=== PATIENT | female | born 1980 | race Hispanic/Latino ===

== ENCOUNTER 2017-02-06 18:14 | Inpatient (IN) | payer MEDICAID, OTHER ==
[2017-02-06 18:14] VITALS: BMI 34.3
--- NOTE | 2017-02-06 19:48 | ED PDOC ---
Arrival/HPI - General Chief Complaint: Psychiatric Evaluation Time Seen by Provider: 02/06/17 19:19 Historian: Patient - History of Present Illness Narrative History of Present Illness (Text): 02/06/17 19:43 Pt. to ED PMHX. Schizoaffective disorder,HTN with c/o feeling depressed and paranoid.Feels that some people and men specifically might do her harm.Pt. doesn 't understand why she feels this way.Pt. seems disorganized with her thoughts when trying to explain herself.Also states she feels dizzy at times.She states she forgets to take her medicine at times.She denies any SI/HI.No other somatic complaints offered. Past Medical History - Provider Review Nursing Documentation Reviewed: Yes - Travel History Have you recently traveled outside [place] w/in the past 3 mons?: No - Infectious Disease Hx of Infectious Diseases: None - Tetanus Immunization Tetanus Immunization: Unknown - Cardiac Hx Cardiac Disorders: Yes Hx Hypertension: Yes - Pulmonary Hx Respiratory Disorders: Yes Hx Asthma: Yes Hx Tuberculosis: No - Neurological Hx Neurological Disorder: No HX Cerebrovascular Accident: No Hx Seizures: No - HEENT Hx HEENT Disorder: No - Renal Hx Renal Disorder: No Hx Dialysis: No - Endocrine/Metabolic Hx Endocrine Disorders: No - Hematological/Oncological Hx Blood Disorders: Yes Hx Anemia: Yes Hx Cancer: No - Integumentary Hx Dermatological Disorder: No - Musculoskeletal/Rheumatological Hx Musculoskeletal Disorders: No - Gastrointestinal Hx Gastrointestinal Disorders: Yes Hx Gastritis: Yes - Genitourinary/Gynecological Hx Genitourinary Disorders: No Hx Sexually Transmitted Diseases: No - Psychiatric Hx Psychophysiologic Disorder: Yes Hx Anxiety: Yes Hx Bipolar Disorder: Yes Hx Substance Use: No - Surgical History Other/Comment: Skin Graft - Anesthesia Hx Anesthesia Reactions: No Hx Malignant Hyperthermia: No - Suicidal Assessment Feels Threatened In Home Enviroment: No Family/Social History - Physician Review Nursing Documentation Reviewed: Yes Family/Social History: No Known Family HX Smoking Status: Never Smoked Hx Alcohol Use: No Hx Substance Use: No Hx Substance Use Treatment: No Allergies/Home Meds Allergies/Adverse Reactions: Allergies diphenhydramine HCl [From Benadryl] Allergy (Verified 02/06/17 18:27) ANAPHYLAXIS FISH Allergy (Verified 02/06/17 18:27) RASH fluphenazine [From Prolixin] Allergy (Verified 02/06/17 18:27) ANAPHYLAXIS lactase [From Dairy Aid] Allergy (Verified 02/06/17 18:27) gerd All dairy products haloperidol [From Haldol] Adverse Reaction (Verified 02/06/17 18:27) SHORTNESS OF BREATH haloperidol lactate [From Haldol] Adverse Reaction (Verified 02/06/17 18:27) SHORTNESS OF BREATH seafood Allergy (Uncoded 02/06/17 18:27) RASH Home Medications: Home Meds Medication Instructions Recorded Confirmed Divalproex [Depakote DR] 500 mg PO BID 10/11/16 02/06/17 Metoprolol Tartrate [Lopressor] 0.5 tab PO BID 10/11/16 02/06/17 QUEtiapine [Seroquel] 100 mg PO .AM 10/11/16 02/06/17 QUEtiapine [Seroquel] 125 mg PO HS 10/11/16 02/06/17 Benztropine [Cogentin] 1 mg PO BID 02/06/17 02/06/17 Omeprazole Magnesium [Prilosec Otc] 1 tab PO DAILY 02/06/17 02/06/17 Zolpidem [Ambien] 10 mg PO HS 02/06/17 02/06/17 Review of Systems - Review of Systems Constitutional: Normal Eyes: Normal ENT: Normal Respiratory: Normal Cardiovascular: Normal Gastrointestinal: Normal Genitourinary Female: Normal Musculoskeletal: Normal Skin: Normal Neurological: Normal Endocrine: Normal Hemo/Lymphatic: Normal Psychiatric: Depression, Other (paranoid) Physical Exam Vital Signs Temp Pulse Resp BP Pulse Ox 02/07/17 00:00 98.5 F 88 16 132/75 98 02/06/17 22:00 98 F 85 16 142/75 98 02/06/17 20:14 85 16 144/75 98 02/06/17 18:30 98.3 F 88 16 153/86 H 97 Temperature: Afebrile Blood Pressure: Normal Pulse: Regular Respiratory Rate: Normal Appearance: Positive for: Well-Appearing, Non-Toxic, Comfortable Pain Distress: None Mental Status: Positive for: Alert and Oriented X 3 - Systems Exam Head: Present: Atraumatic, Normocephalic Pupils: Present: PERRL Extroacular Muscles: Present: EOMI Conjunctiva: Present: Normal Ears: Present: NORMAL TM Mouth: Present: Moist Mucous Membranes Pharnyx: Present: Normal Neck: Present: Normal Range of Motion Respiratory/Chest: Present: Clear to Auscultation, Good Air Exchange. No: Respiratory Distress, Accessory Muscle Use Cardiovascular: Present: Regular Rate and Rhythm, Normal S1, S2. No: Murmurs Abdomen: Present: Normal Bowel Sounds. No: Tenderness, Distention, Peritoneal Signs Back: Present: Normal Inspection Upper Extremity: Present: Normal Inspection. No: Cyanosis, Edema Lower Extremity: Present: Normal Inspection. No: Edema Neurological: Present: GCS=15, CN II-XII Intact, Speech Normal, Motor Func Grossly Intact, Normal Sensory Function Skin: Present: Warm, Dry, Normal Color. No: Rashes Psychiatric: Present: Alert, Oriented x 3, Depressed Mood Medical Decision Making ED Course and Treatment: CXR shows no active disease. 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 Pt to be admitted to Behavioral Health for schizoaffective disorder and depression. Pt agreeable with plan. - Lab Interpretations Lab Results: 02/06/17 21:15 02/06/17 21:15 Lab Results 02/06/17 21:15: Alcohol, Quantitative < 10 02/06/17 21:15: Salicylates < 1 L, Acetaminophen < 10.0 L 02/06/17 21:15: Sodium 140, Potassium 4.0, Chloride 104, Carbon Dioxide 25, Anion Gap 15, BUN 11, Creatinine 0.7, Est GFR ( Amer) > 60, Est GFR (Non- Af Amer) > 60, Random Glucose 102, Calcium 8.9, Total Bilirubin 0.3, AST 31, ALT 31, Alkaline Phosphatase 71, Total Protein 6.9, Albumin 3.8, Globulin 3.2, Albumin/Globulin Ratio 1.2 02/06/17 21:15: WBC 8.4, RBC 4.17, Hgb 11.6 L, Hct 34.8 L, MCV 83.5, MCH 27.8, MCHC 33.3, RDW 13.2, Plt Count 215, MPV 8.1, Gran % 63.5, Lymph % (Auto) 26.6, [place] % (Auto) 7.5 H, Eos % (Auto) 1.9, Baso % (Auto) 0.5, Gran # 5.36, Lymph # 2.2, [place] # 0.6, Eos # 0.2, Baso # 0.04 - RAD Interpretation Radiology Orders: 02/06/17 19:42 CHEST PORTABLE [RAD] Stat - EKG Interpretation EKG Interpretation (Text): EKG shows NSR at [address] changes. Interpreted by me. Interpreted by ED Physician: Yes Type: 12 lead EKG - Medication Orders Current Medication Orders: Clonazepam (Klonopin) 0.5 mg PO [facility] PRN Reason: Protocol Quetiapine Fumarate (Seroquel) 100 mg PO [facility] PRN Reason: Protocol Discontinued Medications Clonazepam (Klonopin) 0.5 mg PO ONCE ONE PRN Reason: Protocol Stop: 02/07/17 22:28 Divalproex Sodium (Depakote Dr(*Bid*)) 500 mg PO ONCE ONE PRN Reason: Protocol Stop: 02/06/17 22:27 Famotidine (Pepcid) 20 mg PO ONCE STA Stop: 02/06/17 20:31 Last Admin: 02/06/17 20:35 Dose: Not Given Non-Admin Reason: Patient Refused Quetiapine Fumarate (Seroquel) 100 mg PO ONCE ONE PRN Reason: Protocol Stop: 02/07/17 22:27 Zolpidem Tartrate (Ambien) 5 mg PO ONCE ONE PRN Reason: Protocol Stop: 02/06/17 22:43 Disposition/Present on Arrival - Present on Arrival Any Indicators Present on Arrival: No History of DVT/PE: No History of Uncontrolled Diabetes: No Urinary Catheter: No History of Decub. Ulcer: No History Surgical Site Infection Following: None - Disposition Have Diagnosis and Disposition been Completed?: Yes Diagnosis: Schizoaffective disorder Disposition: HOSPITALIZED Disposition Time: 22:13 Patient Plan: Admission Patient Problems: Current Active Problems Problem Status Onset Schizoaffective disorder Acute Condition: GOOD
[2017-02-06 21:22] LABS: ADD MANUAL DIFF? NO
[2017-02-06 21:32] LABS: BASO # 0.04 K/mm3 (0.0-2.0); BASO % 0.5 % (0.0-3.0); EOS # 0.2 (0.0-0.7); EOS % 1.9 % (1.5-5.0); GRAN # 5.36 (1.4-6.5); GRAN % 63.5 % (50.0-68.0); HEMATOCRIT 34.8 % (36.0-48.0); LYMPH # 2.2 (1.2-3.4); LYMPH % 26.6 % (22.0-35.0); MEAN CELL VOLUME 83.5 fL (80.0-105.0); MEAN CORPUSCULAR HEMOGLOBIN 27.8 pg (25.0-35.0); MEAN CORPUSCULAR HGB CONC 33.3 g/dl (31.0-37.0); MEAN PLATELET VOLUME 8.1 fl (7.0-11.0); MONO # 0.6 (0.1-0.6); MONO % 7.5 % (1.0-6.0); PLATELET COUNT 215 10^3/uL (120.0-450.0); RED CELL DISTRIBUTION WIDTH 13.2 % (11.5-14.5); WHITE BLOOD COUNT 8.4 10^3/ul (4.5-11.0)
[2017-02-06 21:36] LABS: ALB/GLOB RATIO 1.2 (1.1-1.8); ALKALINE PHOSPHATASE 71 U/L (38-133); ALT/SGPT 31 U/L (7-56); AST/SGOT 31 U/L (15-39); BILIRUBIN,TOTAL 0.3 mg/dL (0.2-1.3); BLOOD UREA NITROGEN 11 mg/dL (7-21); CALCIUM 8.9 mg/dL (8.4-10.5); CARBON DIOXIDE 25 mmol/L (21-33); CHLORIDE 104 mmol/L (98-107); GFR AFRICAN-AMERICAN > 60; GLUCOSE,RANDOM 102 mg/dL (70-110); SODIUM 140 mmol/L (132-148); TOTAL PROTEIN 6.9 g/dL (5.8-8.3)
[2017-02-06] MEDS ORDERED: Divalproex 500 mg DR(BID formulation) PO ONE (22:26)
[2017-02-07 00:01] VITALS: O2SAT 98
[2017-02-07 00:20] LABS: URINE BILIRUBIN NEGATIVE (NEGATIVE); URINE BLOOD NEGATIVE (NEGATIVE); URINE GLUCOSE (UA) NEGATIVE (NEGATIVE); URINE KETONE NEGATIVE (NEGATIVE); URINE LEUKOCYTE ESTERASE NEGATIVE Leu/uL (NEGATIVE); URINE PROTEIN NEGATIVE mg/dL (<30 mg/dL); URINE UROBILINOGEN 0.2 E.U./dL (<1 E.U./dL)
[2017-02-07 00:29] LABS: URINE APPEARANCE CLEAR (CLEAR); URINE COLOR YELLOW (YELLOW)
[2017-02-07 01:57] VITALS: RESP 20
[2017-02-07] MEDS ORDERED: Alum-Mag Hydrox-Simethicone Susp (30 mL) PO PRN (02:35)
[2017-02-07] MEDS ORDERED: Magnesium Hydroxide Susp 30 ml UD PO PRN (02:35)
--- NOTE | 2017-02-07 09:00 | RAD ---
HISTORY: medical clearance COMPARISON: 11/25/2016 FINDINGS: LUNGS: No active pulmonary disease. PLEURA: No significant pleural effusion identified, no pneumothorax apparent. CARDIOVASCULAR: Normal. OSSEOUS STRUCTURES: No significant abnormalities. VISUALIZED UPPER ABDOMEN: Normal. OTHER FINDINGS: None. IMPRESSION: No active disease. No significant interval change. Please note that chest radiographs have low sensitivity for small pulmonary nodules. If indicated, chest CT should be obtained.
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
[2017-02-07] MEDS: Divalproex 500 mg DR(BID formulation) PO SCH ×2 (09:18→21:14)
--- NOTE | 2017-02-07 10:01 | CARD ---
APPROVED REPORT EKG Measurement Heart [id number] <Conclusion> Normal sinus rhythm NSSTW changes No change
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
[2017-02-08] MEDS: Pantoprazole 40 mg EC Tab PO SCH (09:02)
[2017-02-08] MEDS: Divalproex 500 mg DR(BID formulation) PO SCH ×2 (09:02→21:25)
[2017-02-09] MEDS: Pantoprazole 40 mg EC Tab PO SCH (09:18)
[2017-02-09] MEDS: Divalproex 500 mg DR(BID formulation) PO SCH (09:18)
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
[2017-02-09] MEDS ORDERED: Divalproex 500 mg DR(BID formulation) PO SCH (16:00)
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
[2017-02-09] MEDS ORDERED: Divalproex 500 mg ER (ONCE DAILY formulation) PO SCH (22:00)
[2017-02-10] MEDS: Pantoprazole 40 mg EC Tab PO SCH (06:47)
[2017-02-10] MEDS ORDERED: Divalproex 500 mg DR(BID formulation) PO SCH (08:00)
[2017-02-10] MEDS ORDERED: Divalproex 500 mg ER (ONCE DAILY formulation) PO SCH (08:00)
[2017-02-10] MEDS ORDERED: QUEtiapine 50 mg XR Tab PO SCH (08:00)
[2017-02-10] MEDS ORDERED: Naproxen 275 mg Tab PO SCH (08:00)
[2017-02-10] MEDS: QUEtiapine 50 mg XR Tab PO SCH (09:23)
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
[2017-02-10] MEDS: Divalproex 500 mg ER (ONCE DAILY formulation) PO SCH (21:33)
[2017-02-11] MEDS: Divalproex 250 mg ER (ONCE DAILY formulation) PO SCH (08:15)
[2017-02-11] MEDS: QUEtiapine 50 mg XR Tab PO SCH (08:16)
[2017-02-11] MEDS: Pantoprazole 40 mg EC Tab PO SCH (08:16)
--- NOTE | 2017-02-11 13:52 | PN ---
DATE: 02/11/2017 The patient is 36 years old, seen and examined sitting in the day room. Complained of a headache. S he states she has strong migraine headache. She also complained of having a strange feeling that is running through her body. As per nurse, eating and tolerating. PHYSICAL EXAMINATION: VITAL SIGNS: Blood pressure is 98.1, pulse 72, respirations 20, blood pressure 99/54. LUNGS: Bilateral fair airflow, no rhonchi or crackle. HEART: S1, S2 audible. ABDOMEN: Soft, nontender, no rebound, no guarding. NEUROLOGIC: She is awake and alert, communicative. ASSESSMENT AND PLAN: 1. Migraine headache. 2. Anxiety disorder. 3. Paranoid schizophrenia. PLAN: We will start her on Percocet as needed. All other medication as recommended by psychiatrist. She is also on metoprolol, but her blood pressure seems to be running on the low side. We will dis continue for now and restart if needed. Tavon Vo MD cc: [phone] TT: 02/11/2017 13:51:52 Confirmation # [id number] Dictation # [id number]
[2017-02-11] MEDS ORDERED: QUEtiapine 50 mg XR Tab PO SCH (16:08)
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
[2017-02-11] MEDS ORDERED: Benzocaine/Menthol (Cepacol) Lozenge MT PRN (19:03)
[2017-02-11] MEDS: Apap-Butalbital-Caffeine 325-50-40mg Tab PO PRN (21:23)
[2017-02-11] MEDS: Divalproex 500 mg ER (ONCE DAILY formulation) PO SCH (21:26)
[2017-02-12] MEDS ORDERED: Naproxen 550 mg Tab PO PRN (14:30)
[2017-02-12] MEDS ORDERED: Naproxen 550 mg Tab PO ONE (14:34)
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
[2017-02-12] MEDS: Apap-Butalbital-Caffeine 325-50-40mg Tab PO PRN (20:04)
[2017-02-12] MEDS: Divalproex 500 mg ER (ONCE DAILY formulation) PO SCH (22:12)
[2017-02-12 22:31] VITALS: PULSE 78
[2017-02-13] MEDS: Pantoprazole 40 mg EC Tab PO SCH (06:32)
[2017-02-13 07:19] VITALS: BP 117/64; TEMP 97.9
[2017-02-13] MEDS: Divalproex 250 mg ER (ONCE DAILY formulation) PO SCH ×2 (09:40→09:41)
--- NOTE | 2017-02-13 18:10 | PCM.PYCHDC ---
Mental Status Examination - Mental Status Examination Orientation: Person, Place, Situation, Time Memory: Intact Mood: Neutral Affect: Constricted (thanks angry) Speech: Appropriate (but overproductive) Attention: WNL Concentration: WNL Association: WNL Fund of Knowledge: Poor (chronic) Formal Thought Process: Paranoia (patient is mildly paranoid, chronic, but with improvement) Description of patient's judgement and insight: Pt has improved insight into mental and medical illness, pt was compliant with medications and unit rules and regulations, pt was going to groups, was calm, cooperative, socially appropriate, no behavioral incidents, no agitation, no aggression. Psychotic Thoughts and Behaviors: Pt denied v/a/t hallucinations, denied paranoid ideations, pt does not appear to be psychotic, and thought process is goal directed. Suicidal Ideation: No Current Homicidal Ideation?: No Discharge Summary - Discharge Note Reason for Hospitalization: paranoia, inability to function Laboratory Data: 02/06/17 21:15 02/06/17 21:15 Lab Results 02/07/17 09:40: Urine HCG, Qual Negative 02/07/17 00:00: Urine Opiates Screen Negative, Urine Methadone Screen Negative, Ur Barbiturates Screen Negative, Ur Phencyclidine Scrn Negative, Ur Amphetamines Screen Negative, U Benzodiazepines Scrn Negative, U Oth Cocaine Metabols Negative, U Cannabinoids Screen Negative 02/07/17 00:00: Urine Color Yellow, Urine Appearance Clear, Urine pH 7.0, Ur Specific [place] 1.015, Urine Protein Negative, Urine Glucose (UA) Negative, Urine Ketones Negative, Urine Blood Negative, Urine Nitrate Negative, Urine Bilirubin Negative, Urine Urobilinogen 0.2, Ur Leukocyte Esterase Negative 02/06/17 21:15: Alcohol, Quantitative < 10 02/06/17 21:15: Salicylates < 1 L, Acetaminophen < 10.0 L 02/06/17 21:15: Sodium 140, Potassium 4.0, Chloride 104, Carbon Dioxide 25, Anion Gap 15, BUN 11, Creatinine 0.7, Est GFR ( Amer) > 60, Est GFR (Non- Af Amer) > 60, Random Glucose 102, Calcium 8.9, Total Bilirubin 0.3, AST 31, ALT 31, Alkaline Phosphatase 71, Total Protein 6.9, Albumin 3.8, Globulin 3.2, Albumin/Globulin Ratio 1.2 02/06/17 21:15: WBC 8.4, RBC 4.17, Hgb 11.6 L, Hct 34.8 L, MCV 83.5, MCH 27.8, MCHC 33.3, RDW 13.2, Plt Count 215, MPV 8.1, Gran % 63.5, Lymph % (Auto) 26.6, [place]ha % (Auto) 7.5 H, Eos % (Auto) 1.9, Baso % (Auto) 0.5, Gran # 5.36, Lymph # 2.2, Desha # 0.6, Eos # 0.2, Baso # 0.04 Vital Signs Temp Pulse Resp BP Pulse Ox 02/13/17 07:18 97.9 F 78 20 117/64 02/12/17 16:00 78 113/52 L 02/11/17 17:55 82 109/67 02/11/17 16:51 82 109/67 02/11/17 07:17 98.1 F 72 20 99/54 L 02/10/17 16:44 89 131/97 H 02/10/17 16:00 89 131/97 H 02/10/17 07:38 97.7 F 63 20 110/70 02/09/17 16:21 96 H 113/76 02/09/17 15:55 96 H 113/76 02/08/17 16:00 86 119/77 02/07/17 16:45 65 116/70 02/07/17 16:27 65 116/70 02/07/17 07:41 98.0 F 73 20 98/44 L 02/07/17 01:57 20 02/07/17 01:54 98.2 F 72 20 148/91 H 02/07/17 00:00 98.5 F 88 16 132/75 98 02/06/17 22:00 98 F 85 16 142/75 98 02/06/17 20:14 85 16 144/75 98 02/06/17 18:30 98.3 F 88 16 153/86 H 97 Consultations:: List each consultation separately and include: 1. Reason for request. 2. Findings. 3. Follow-up Consultations: medical consult appreciated see no somewhat detailed information Summary of Hospital Course include:: 1. Description of specific treatment plan utilized for patients during their course of treatmen. 2. Summarize the time- course for resolution of acute symptoms and/or regressed behaviors. 3. Describe issues identified and worked on during hospitalization. 4. Describe medication utilized. 5. Describe medical problems identified and treated. 6. Reassessment of suicide risk Summary of Hospital Course: patient was admitted for evaluation and stabilization of psychotic symptoms, patient was feeling that people are after her, patient was afraid to be raped. at the day of admission patient was seen in the treatment team, patient presented to be loud, agitated, was cursing at people, was making threats, patient was not able to be redirected, patient presented to be angry, paranoid, does not make much sense. Over the course of this hospitalization this rewriter had a hard time to adjust medications because patient is feeling very paranoid about increasing the dose of medication, over all patient was in agreement to increase doses minimally. Patient was stabilized on the following meds: Seroquel to XR 150mg am and 125mg hs for psychosis klonopin 0.5tid for anxiety depakote to 750mg am and 500gm hs for mood stabilization overall patient improved, patient was less argumentative, was not cursing at people, was socially appropriate, was Attending groups. 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 pt still presented to be mildly paranoid "I know that everybody hates me here, when I will leave probably you will have libertarian" but at the same time pt asked "would you accept me in the future?, please do not defer me from the ED in case I will come here", when this rewriter let pt know that she is welcomed back in the unit pt seems to be much better, smiled and appreciated. Patient was educated about her current medications patient takes long time to process that information, patient said "don't be upset with me because I'm kind of slow, and I cannot understand what my medications are". This rewriter educated about all of her medications, risk benefits alternatives were discussed with the patient, finally patient was able to process that information. At the time of the discharge pt denied been depressed, denied thoughts of harming self or others, denied psychotic symptoms, and pt does not appeared to be psychotic, denied been anxious, was considered to pose no threat to self or others, will be following up at [facility], information about follow up appointment, time and address provided to the pt, it is patient responsibility to follow up with outpatient clinic, PMD as well as specialists (see SW note for more detailed information). In case pt will need to obtain results of studies pending at discharge pt was provided with contact information of Psychiatric Inpatient unit [phone] as well as Medical Record Department [phone]. pt was provided with prescriptions for all of medications (please see medication reconciliation form) patient has Depakote 500 mg twice a day at home This rewriter will provide prescription for Depakote 250 mg at the morning time 2 week supply and 1 refill for mood stabilization Patient was on Seroquel 100 mg at the morning time as well as 125 mg at the nighttime patient has enough medication 125 mg at the nighttime This rewriter will provide Seroquel extended release 150 mg daily 2 week supply one refill for paranoid ideation and mood stabilization Patient has Klonopin 0.5 mg twice a day at home This rewriter will provide Klonopin 0.5 mg at 2 PM two-week supply and 1 refill in addition to Klonopin what she had at home Patient also was provided with Ambien 10 mg at the nighttime 2 week supply and 1 refill Patient still has Cogentin 1 mg twice a day at home patient requested to have vitamin C 500 mg daily one week supply was provided Patient also requested to be on several Qual lozenges 1 tab every 6 hours only 3 days supply and no refills Patient also requested to have here is said one pill twice a day as needed for headaches only 1 week's supply and no refills N5 150 twice a day as needed for severe pain week supply and no refill Pt was educated about safety plan in case of worsening of symptoms or in case of suicidal or homicidal ideation call 911 or go to the nearest ER, also was educated to take meds as prescribed and stay away from drugs, pt verbalized understanding. - Diagnosis (1) Schizoaffective disorder, bipolar type Status: Acute - Final Diagnosis (DSM 5) Condition upon Discharge: GOOD Disposition: HOME/ ROUTINE Follow-up Treatment Plan: At the time of the discharge pt denied been depressed, denied thoughts of harming self or others, denied psychotic symptoms, and pt does not appeared to be psychotic, denied been anxious, was considered to pose no threat to self or others, will be following up at [facility], information about follow up appointment, time and address provided to the pt, it is patient responsibility to follow up with outpatient clinic, PMD as well as specialists (see SW note for more detailed information). In case pt will need to obtain results of studies pending at discharge pt was provided with contact information of Psychiatric Inpatient unit [phone] as well as Medical Record Department [phone]. pt was provided with prescriptions for all of medications (please see medication reconciliation form) patient has Depakote 500 mg twice a day at home This rewriter will provide prescription for Depakote 250 mg at the morning time 2 week supply and 1 refill for mood stabilization Patient was on Seroquel 100 mg at the morning time as well as 125 mg at the nighttime patient has enough medication 125 mg at the nighttime This rewriter will provide Seroquel extended release 150 mg daily 2 week supply one refill for paranoid ideation and mood stabilization Patient has Klonopin 0.5 mg twice a day at home This rewriter will provide Klonopin 0.5 mg at 2 PM two-week supply and 1 refill in addition to Klonopin what she had at home Patient also was provided with Ambien 10 mg at the nighttime 2 week supply and 1 refill Patient still has Cogentin 1 mg twice a day at home patient requested to have vitamin C 500 mg daily one week supply was provided Patient also requested to be on several Qual lozenges 1 tab every 6 hours only 3 days supply and no refills Patient also requested to have here is said one pill twice a day as needed for headaches only 1 week's supply and no refills N5 150 twice a day as needed for severe pain week supply and no refill Pt was educated about safety plan in case of worsening of symptoms or in case of suicidal or homicidal ideation call 911 or go to the nearest ER, also was educated to take meds as prescribed and stay away from drugs, pt verbalized understanding. Prescriptions/Medication Reconciliation: RX: Benzocaine/Menthol [Cepacol Sore Throat] 1 cara MT Q4 PRN #14 cara PRN Reason: Sore Throat RX: clonazePAM [Klonopin] 0.5 mg PO 1600 #14 tab RX: Divalproex [Depakote ER(ONCE DAILY)] 250 mg PO DAILY #14 ter RX: Loratadine [Claritin] 10 mg PO DAILY #7 tab RX: Naproxen [Anaprox DS] 550 mg PO BID PRN #14 tab PRN Reason: Pain, Moderate (4-7) RX: QUEtiapine [Seroquel XR] 150 mg PO DAILY #14 ter RX: Zolpidem [Ambien] 10 mg PO HS #14 - Smoking Cessation Smoking Cessation Medication prescribed: No Reason for not providing: pt does not smoke
== END 2017-02-13 17:37 | disposition home or self-care (01) | DRG 430 ==
LOC: ED 18:14 → ERH 22:11 → PSYC 02-07 01:09
PROVIDERS: ADMIT Psychiatry & Neurology Psychiatry; ATTEND Psychiatry & Neurology Psychiatry
DX: F25.0 Schizoaffective disorder, bipolar type (principal); R56.9 Unspecified convulsions; F20.0 Paranoid schizophrenia; I10 Essential (primary) hypertension; G43.909 Migraine, unspecified, not intractable, without status migrainosus; E66.9 Obesity, unspecified; G24.01 Drug induced subacute dyskinesia; G47.00 Insomnia, unspecified; J45.909 Unspecified asthma, uncomplicated; Z79.899 Other long term (current) drug therapy; Z87.11 Personal history of peptic ulcer disease; Z91.14 Patient's other noncompliance with medication regimen; Z68.34 Body mass index [BMI] 34.0-34.9, adult

== ENCOUNTER 2017-04-06 09:37 | Emergency (ER) | payer MEDICAID, OTHER ==
[2017-04-06 09:39] VITALS: BMI 34.3
[2017-04-06] MEDS ORDERED: Sodium Chloride 0.9% 1,000 ML IV STA (10:11)
--- NOTE | 2017-04-06 10:11 | ED PDOC ---
Arrival/HPI - General Chief Complaint: Abdominal Pain Time Seen by Provider: 04/06/17 10:10 Historian: Patient - History of Present Illness Narrative History of Present Illness (Text): 04/06/17 10:11 36 y/o female, pmh including htn, psychiatric history including shizoaffective/ psychosis/bipolar/paranoid, allergic to pepcid/haldol, c/o generalized abdominal pain/nausea/vomiting/diarrhea x 3-4 days. Pt. has no recent traveling , been having generalized abdominal pain, associated with nausea/vomiting, didn' t count how many times of diarrhea, no night sweat, no dizziness, no urinary symptoms, hematuria, no objective fever or chills, no other medical or psychological complaints. Past Medical History - Provider Review Nursing Documentation Reviewed: Yes - Infectious Disease Hx of Infectious Diseases: None - Tetanus Immunization Tetanus Immunization: Unknown - Cardiac Hx Cardiac Disorders: Yes Hx Hypertension: Yes - Pulmonary Hx Respiratory Disorders: Yes Hx Asthma: Yes Hx Tuberculosis: No - Neurological Hx Neurological Disorder: No HX Cerebrovascular Accident: No Hx Seizures: No - HEENT Hx HEENT Disorder: No - Renal Hx Renal Disorder: No Hx Dialysis: No - Endocrine/Metabolic Hx Endocrine Disorders: No - Hematological/Oncological Hx Blood Disorders: Yes Hx Anemia: Yes Hx Cancer: No - Integumentary Hx Dermatological Disorder: No - Musculoskeletal/Rheumatological Hx Musculoskeletal Disorders: No - Gastrointestinal Hx Gastrointestinal Disorders: Yes Hx Gastritis: Yes - Genitourinary/Gynecological Hx Genitourinary Disorders: No Hx Sexually Transmitted Diseases: No - Psychiatric Hx Psychophysiologic Disorder: Yes Hx Anxiety: Yes Hx Bipolar Disorder: Yes Hx Substance Use: No - Surgical History Other/Comment: Skin Graft - Anesthesia Hx Anesthesia: Yes Hx Anesthesia Reactions: No Hx Malignant Hyperthermia: No - Suicidal Assessment Feels Threatened In Home Enviroment: No Family/Social History - Physician Review Nursing Documentation Reviewed: Yes Family/Social History: Unknown Family HX Smoking Status: Never Smoked Hx Alcohol Use: No Hx Substance Use: No Hx Substance Use Treatment: No Allergies/Home Meds Allergies/Adverse Reactions: Allergies diphenhydramine HCl [From Benadryl] Allergy (Verified 04/06/17 09:58) ANAPHYLAXIS FISH Allergy (Verified 04/06/17 09:58) RASH fluphenazine [From Prolixin] Allergy (Verified 04/06/17 09:58) ANAPHYLAXIS lactase [From Dairy Aid] Allergy (Verified 04/06/17 09:58) gerd All dairy products haloperidol [From Haldol] Adverse Reaction (Verified 04/06/17 09:58) SHORTNESS OF BREATH haloperidol lactate [From Haldol] Adverse Reaction (Verified 04/06/17 09:58) SHORTNESS OF BREATH seafood Allergy (Uncoded 04/06/17 09:58) RASH Home Medications: Home Meds Medication Instructions Recorded Confirmed Divalproex [Depakote DR] 500 mg PO BID 10/11/16 04/06/17 Benztropine [Benztropine Mesylate] 1 mg PO BID 04/06/17 04/06/17 Metoprolol Tartrate [Lopressor] 25 mg PO DAILY 04/06/17 04/06/17 Review of Systems - Review of Systems Constitutional: absent: Fatigue, Fevers Eyes: absent: Vision Changes ENT: absent: Hearing Changes Respiratory: absent: SOB, Cough Cardiovascular: absent: Chest Pain Gastrointestinal: Abdominal Pain, Diarrhea, Nausea, Vomiting Musculoskeletal: absent: Arthralgias, Myalgias Skin: absent: Rash, Pruritis Physical Exam Vital Signs Reviewed: Yes Vital Signs Temp Pulse Resp BP Pulse Ox 04/06/17 09:52 98.6 F 94 H 18 114/81 98 Temperature: Afebrile Blood Pressure: Normal Pulse: Regular Respiratory Rate: Normal Appearance: Positive for: Well-Appearing, Non-Toxic, Comfortable Pain Distress: Mild Mental Status: Positive for: Alert and Oriented X 3 - Systems Exam Head: Present: Atraumatic, Normocephalic Pupils: Present: PERRL Extroacular Muscles: Present: EOMI Conjunctiva: Present: Normal Mouth: Present: Moist Mucous Membranes Neck: Present: Normal Range of Motion Respiratory/Chest: Present: Clear to Auscultation, Good Air Exchange. No: Respiratory Distress, Accessory Muscle Use Cardiovascular: Present: Regular Rate and Rhythm, Normal S1, S2. No: Murmurs Abdomen: Present: Tenderness (+epigastric), Normal Bowel Sounds. No: Distention , Peritoneal Signs, Rebound, Guarding Back: Present: Normal Inspection Upper Extremity: Present: Normal Inspection. No: Cyanosis, Edema Lower Extremity: Present: Normal Inspection. No: Edema Neurological: Present: GCS=15, Speech Normal, Motor Func Grossly Intact, Gait Normal, Memory Normal Skin: Present: Warm, Dry, Normal Color. No: Rashes Psychiatric: Present: Alert, Oriented x 3, Normal Insight, Normal Concentration Medical Decision Making ED Course and Treatment: 04/06/17 09:45 -labs/ua -CT abdomen and pelvis -IVF/pepcid -observe and reassess 04/06/17 14:12 -labs are nonsignificant -UA show no UTI -CT abdomen and pelvis show no significant acute findings, wbc within normal limit, no objective fever temperature in the ER or at home. -Labs and radiology studies discussed with Dr. Hein, agreed to be discharged home. I discussed the labs and radiology results with the patient, her pain resolved, sleeping well and request to be discharged home. -Pt. stated that she will like motrin for prescription as her bed at home is not comfortable. Her abdominal examination is unremarkable with no tenderness or guarding. -Discharge home with pepcid, zofran, motrin, stay hydrated, brat diet, non- dairy diet for 5 days, follow up with your own pmd and GI within 2 days, return to the ER for any new or worsening signs or symptoms. - Lab Interpretations Lab Results: 04/06/17 11:50 04/06/17 11:50 Lab Results 04/06/17 12:45: Urine Color Yellow, Urine Appearance Sl cloudy, Urine pH 7.0, Ur Specific [place] <= 1.005, Urine Protein Negative, Urine Glucose (UA) Negative, Urine Ketones Negative, Urine Blood Trace-lysed H, Urine Nitrate Negative, Urine Bilirubin Negative, Urine Urobilinogen 0.2, Ur Leukocyte Esterase Negative, Urine RBC 1 - 3, Urine WBC 0 - 2, Ur Epithelial Cells 0 - 2 04/06/17 11:50: Sodium 137, Potassium 3.9, Chloride 105, Carbon Dioxide 25, Anion Gap 11, BUN 12, Creatinine 0.5, Est GFR ( Amer) > 60, Est GFR (Non- Af Amer) > 60, Random Glucose 103, Calcium 8.1 L, Total Bilirubin 0.3, AST 29, ALT 25, Alkaline Phosphatase 66, Total Protein 6.4, Albumin 3.5, Globulin 3.0, Albumin/Globulin Ratio 1.2, Lipase 50 04/06/17 11:50: WBC 5.1 D, RBC 4.11, Hgb 11.4 L, Hct 34.3 L, MCV 83.5, MCH 27.7 , MCHC 33.2, RDW 13.1, Plt Count 168, MPV 7.8, Gran % 50.3, Lymph % (Auto) 31.7 , [place] % (Auto) 12.1 H, Eos % (Auto) 5.3 H, Baso % (Auto) 0.6, Gran # 2.54, Lymph # 1.6, [place] # 0.6, Eos # 0.3, Baso # 0.03 I have reviewed the lab results: Yes Interpretation: No clinic. lab abnormalty - RAD Interpretation Radiology Orders: 04/06/17 10:35 ABDOMEN & PELVIS [ABD & PELVIS IV CONTRAST ONLY] [CT] Stat IMPRESSION: There is lack of oral contrast and gas distention of the colon which makes it difficult to evaluate. There is possible mural thickening. There are no mesenteric inflammatory changes. Clinical correlation is suggested No acute intra-abdominal findings Cco & President: Radiologist - Medication Orders Current Medication Orders: Discontinued Medications Famotidine (Pepcid) 20 mg IVP STAT STA Stop: 04/06/17 10:36 Last Admin: 04/06/17 11:53 Dose: 20 mg Sodium Chloride (Sodium Chloride 0.9%) 1,000 mls @ 999 mls/hr IV .Q1H1M STA Stop: 04/06/17 11:11 Last Admin: 04/06/17 11:17 Dose: 999 mls/hr Iohexol (Omnipaque 300 100 Ml) Confirm Administered Dose 100 ml IJ .STK-MED ONE Stop: 04/06/17 12:24 Iohexol (Omnipaque 350 100 Ml) Confirm Administered Dose 350 mg .ROUTE .STK-MED ONE Stop: 04/06/17 12:26 Ketorolac Tromethamine (Toradol) 30 mg IVP STAT STA Stop: 04/06/17 11:53 Last Admin: 04/06/17 12:10 Dose: 30 mg - PA / QUALITY [employer] 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 Disposition/Present on Arrival - Present on Arrival Any Indicators Present on Arrival: No History of DVT/PE: No History of Uncontrolled Diabetes: No Urinary Catheter: No History of Decub. Ulcer: No History Surgical Site Infection Following: None - Disposition Have Diagnosis and Disposition been Completed?: Yes Diagnosis: Vomiting, Diarrhea, Medication refill Disposition: HOME/ ROUTINE Disposition Time: 10:11 Patient Plan: Discharge Condition: IMPROVED Additional Instructions: Discharge home with pepcid, zofran, motrin, stay hydrated, brat diet, non-dairy diet for 5 days, follow up with your own pmd and GI within 2 days, return to the ER for any new or worsening signs or symptoms. Prescriptions: Famotidine [Pepcid] 20 mg PO BID PRN #10 tab PRN Reason: Other Ibuprofen [Motrin Tab] 600 mg PO QID PRN #20 tab PRN Reason: Other Ondansetron ODT [Zofran ODT] 4 mg PO TID PRN #8 odt PRN Reason: Other Referrals: PCP,NO [Primary Care Provider] - Follow up with primary Cristo Esparza MD [Staff Provider] - [place] up with primary [facility] [place] [facility] [place] - Follow up with primary Forms: WORK NOTE
[2017-04-06 12:02] LABS: BASO # 0.03 K/mm3 (0.0-2.0); BASO % 0.6 % (0.0-3.0); EOS # 0.3 (0.0-0.7); EOS % 5.3 % (1.5-5.0); GRAN # 2.54 (1.4-6.5); GRAN % 50.3 % (50.0-68.0); HEMOGLOBIN 11.4 gm/dL (12.0-16.0); LYMPH # 1.6 (1.2-3.4); LYMPH % 31.7 % (22.0-35.0); MEAN CELL VOLUME 83.5 fL (80.0-105.0); MEAN CORPUSCULAR HEMOGLOBIN 27.7 pg (25.0-35.0); MEAN CORPUSCULAR HGB CONC 33.2 g/dl (31.0-37.0); MEAN PLATELET VOLUME 7.8 fl (7.0-11.0); MONO # 0.6 (0.1-0.6); MONO % 12.1 % (1.0-6.0); PLATELET COUNT 168 10^3/uL (120.0-450.0); RBC 4.11 10^6/uL (3.5-6.1); RED CELL DISTRIBUTION WIDTH 13.1 % (11.5-14.5); WHITE BLOOD COUNT 5.1 10^3/ul (4.5-11.0)
[2017-04-06 12:12] LABS: ALB/GLOB RATIO 1.2 (1.1-1.8); ALBUMIN 3.5 g/dL (3.0-4.8); ALT/SGPT 25 U/L (7-56); AST/SGOT 29 U/L (15-39); BLOOD UREA NITROGEN 12 mg/dL (7-21); CALCIUM 8.1 mg/dL (8.4-10.5); GFR AFRICAN-AMERICAN > 60; GFR NON-AFRICAN AMERICAN > 60; LIPASE 50 U/L (23-300)
[2017-04-06] MEDS ORDERED: Iohexol 300 100 ML IJ ONE (12:23)
[2017-04-06] MEDS ORDERED: Iohexol 350 MG/100 ML VIAL ONE (12:25)
[2017-04-06 13:03] LABS: URINE BILIRUBIN NEGATIVE (NEGATIVE); URINE BLOOD TRACE-LYSED (NEGATIVE); URINE GLUCOSE (UA) NEGATIVE (NEGATIVE); URINE LEUKOCYTE ESTERASE NEGATIVE Leu/uL (NEGATIVE); URINE NITRATE NEGATIVE (NEGATIVE); URINE PROTEIN NEGATIVE mg/dL (<30 mg/dL); URINE UROBILINOGEN 0.2 E.U./dL (<1 E.U./dL)
--- NOTE | 2017-04-06 13:11 | CT ---
PROCEDURE: CT Abdomen and Pelvis with contrast HISTORY: abdominal pain/diarrhea/nausea/vomiting COMPARISON: None. TECHNIQUE: Contrast dose: 100 cc of Omni 350 Radiation dose: Total exam DLP = 1144 mGy-cm. This CT exam was performed using one or more of the following dose reduction techniques: Automated exposure control, adjustment of the mA and/or kV according to patient size, and/or use of iterative reconstruction technique. FINDINGS: LOWER THORAX: Unremarkable. LIVER: Unremarkable. No gross lesion or ductal dilatation. GALLBLADDER AND BILE DUCTS: Unremarkable. PANCREAS: Unremarkable. No gross lesion or ductal dilatation. SPLEEN: Unremarkable. ADRENALS: Unremarkable. No mass. KIDNEYS AND URETERS: Unremarkable. No hydronephrosis. No solid mass. VASCULATURE: Unremarkable. No aortic aneurysm. BOWEL: Unremarkable. No obstruction. No gross mural thickening. There is lack of oral contrast and gas distention of the colon which makes it difficult to evaluate. There is possible mural thickening. There are no mesenteric inflammatory changes. Clinical correlation is suggested APPENDIX: Normal appendix. PERITONEUM: Unremarkable. No free fluid. No free air. LYMPH NODES: Unremarkable. No enlarged lymph nodes. BLADDER: Unremarkable. REPRODUCTIVE: Unremarkable. BONES: No acute fracture. OTHER FINDINGS: None. IMPRESSION: There is lack of oral contrast and gas distention of the colon which makes it difficult to evaluate. There is possible mural thickening. There are no mesenteric inflammatory changes. Clinical correlation is suggested No acute intra-abdominal findings
[2017-04-06 13:19] LABS: URINE APPEARANCE SL CLOUDY (CLEAR); URINE COLOR YELLOW (YELLOW)
[2017-04-06 13:21] LABS: URINE EPITHELIAL CELLS 0 - 2 /hpf (0-5); URINE WBC 0 - 2 /hpf (0-6)
[2017-04-06 14:31] VITALS: BP 125/76; PULSE 80; RESP 16; TEMP 97.8; O2SAT 86
== END 2017-04-06 14:35 | disposition home or self-care (01) ==
LOC: ED 09:37
DX: Z76.0 Encounter for issue of repeat prescription (principal); R11.2 Nausea with vomiting, unspecified; R19.7 Diarrhea, unspecified
CPT/HCPCS: 74177; 80053; 81001; 83690; 85025; 96361; 96374; 96375; 99285; J1885; J7040; Q9967

== ENCOUNTER 2017-05-07 14:11 | Emergency (ER) | payer MEDICAID, OTHER ==
[2017-05-07 14:11] VITALS: BMI 34.3
[2017-05-07 14:26] VITALS: RESP 18
--- NOTE | 2017-05-07 15:34 | ED PDOC ---
Arrival/HPI - General Chief Complaint: Psychiatric Evaluation Time Seen by Provider: 05/07/17 14:29 Historian: Patient - History of Present Illness Narrative History of Present Illness (Text): 05/07/17 15:15 A 36 year old female whose past medical history includes schizophrenic disorder , presents to the emergency department with paranoia for the past few days. The patient states that she is on 4 psych medications, but has reduced her intake on her own. She notes that she cannot grasp her feelings. The patient denies fevers, chills, headache, dizziness, nausea, vomiting, diarrhea, chest pain, abdominal pain, or any other complaint. Time/Duration: Other (Several Days) Symptom Onset: Sudden Symptom Course: Unchanged Activities at Onset: Rest, Light Context: Home Past Medical History - Provider Review Nursing Documentation Reviewed: Yes - Infectious Disease Hx of Infectious Diseases: None - Tetanus Immunization Tetanus Immunization: Unknown - Reproductive Menopause: No - Cardiac Hx Cardiac Disorders: Yes Hx Hypertension: Yes - Pulmonary Hx Respiratory Disorders: Yes Hx Asthma: Yes Hx Tuberculosis: No - Neurological Hx Neurological Disorder: No HX Cerebrovascular Accident: No Hx Seizures: No - HEENT Hx HEENT Disorder: No - Renal Hx Renal Disorder: No Hx Dialysis: No - Endocrine/Metabolic Hx Endocrine Disorders: No - Hematological/Oncological Hx Blood Disorders: Yes Hx Anemia: Yes Hx Cancer: No - Integumentary Hx Dermatological Disorder: No - Musculoskeletal/Rheumatological Hx Musculoskeletal Disorders: No - Gastrointestinal Hx Gastrointestinal Disorders: Yes Hx Gastritis: Yes - Genitourinary/Gynecological Hx Genitourinary Disorders: No Hx Sexually Transmitted Diseases: No - Psychiatric Hx Psychophysiologic Disorder: Yes Hx Anxiety: Yes Hx Bipolar Disorder: Yes Hx Substance Use: No - Surgical History Other/Comment: Skin Graft - Anesthesia Hx Anesthesia: Yes Hx Anesthesia Reactions: No Hx Malignant Hyperthermia: No - Suicidal Assessment Feels Threatened In Home Enviroment: No Family/Social History - Physician Review Nursing Documentation Reviewed: Yes Family/Social History: No Known Family HX Smoking Status: Never Smoked Hx Alcohol Use: No Hx Substance Use: No Hx Substance Use Treatment: No Allergies/Home Meds Allergies/Adverse Reactions: Allergies diphenhydramine HCl [From Benadryl] Allergy (Verified 05/07/17 14:26) ANAPHYLAXIS FISH Allergy (Verified 05/07/17 14:26) RASH fluphenazine [From Prolixin] Allergy (Verified 05/07/17 14:26) ANAPHYLAXIS lactase [From Dairy Aid] Allergy (Verified 05/07/17 14:26) gerd All dairy products haloperidol [From Haldol] Adverse Reaction (Verified 05/07/17 14:26) SHORTNESS OF BREATH haloperidol lactate [From Haldol] Adverse Reaction (Verified 05/07/17 14:26) SHORTNESS OF BREATH seafood Allergy (Uncoded 04/06/17 09:58) RASH Home Medications: Home Meds Medication Instructions Recorded Confirmed Benztropine [Benztropine Mesylate] 1 mg PO BID 04/06/17 05/07/17 Metoprolol Tartrate [Lopressor] 12.5 mg PO ACD 04/06/17 05/07/17 Divalproex [Depakote ER] 500 mg PO DAILY 05/07/17 05/07/17 Divalproex [Depakote] 500 mg PO HS 05/07/17 05/07/17 QUEtiapine [Seroquel XR] 100 mg PO DAILY 05/07/17 05/07/17 QUEtiapine [Seroquel] 100 mg PO HS 05/07/17 05/07/17 Review of Systems - Physician Review All systems were reviewed & negative as marked: Yes - Review of Systems Respiratory: absent: SOB Cardiovascular: absent: Chest Pain Gastrointestinal: absent: Diarrhea, Nausea, Vomiting Neurological: absent: Headache, Dizziness Psychiatric: Anxiety Physical Exam Vital Signs Reviewed: Yes Vital Signs Temp Pulse Resp BP Pulse Ox 05/07/17 17:15 18 99 05/07/17 16:24 98.1 F 82 18 108/70 100 05/07/17 14:21 99.2 F 102 H 18 110/72 99 Temperature: Afebrile Blood Pressure: Normal Pulse: Tachycardic Respiratory Rate: Normal Appearance: Positive for: Well-Appearing, Non-Toxic, Comfortable Pain Distress: None Mental Status: Positive for: other (Anxious) - Systems Exam Head: Present: Atraumatic, Normocephalic Pupils: Present: PERRL Extroacular Muscles: Present: EOMI Conjunctiva: Present: Normal Mouth: Present: Moist Mucous Membranes Neck: Present: Normal Range of Motion Respiratory/Chest: Present: Clear to Auscultation, Good Air Exchange. No: Respiratory Distress, Accessory Muscle Use Cardiovascular: Present: Regular Rate and Rhythm, Normal S1, S2. No: Murmurs Abdomen: Present: Normal Bowel Sounds. No: Tenderness, Distention, Peritoneal Signs Back: Present: Normal Inspection Upper Extremity: Present: Normal Inspection. No: Cyanosis, Edema Lower Extremity: Present: Normal Inspection. No: Edema Neurological: Present: GCS=15, CN II-XII Intact, Speech Normal Skin: Present: Warm, Dry, Normal Color. No: Rashes Psychiatric: Present: Anxious Medical Decision Making ED Course and Treatment: 05/07/17 15:23 Impression: A 36 year old female with a complaint on paranoia. Differential Diagnosis included but are not limited to: psych disorder NOS vs. paranoid thoughts Plan: -- EKG -- Chest X-ray -- Urinalysis -- Labs -- Reassess and disposition Progress Notes: 05/07/17 16:05 Patient cleared medically for psych evaluation. 05/07/17 16:37 NSR at [address] elevations, nl intervals. Patient felt a little anxious during her stay. She was given Ativan 1mg PO with improvement. Discussed case with GENESIS Rodriguez who states she discussed with ERIC Dugan who offered patient admission to [facility] but patient wanted to be admitted here. There are no beds. Patient states she wants to leave and come back tomorrow. Patient feels safe going home. No SI or HI. She will continue her meds as discussed with GENESIS Rodriguez. - Lab Interpretations Lab Results: 05/07/17 15:25 05/07/17 15:25 Lab Results 05/07/17 15:25: Alcohol, Quantitative < 10 05/07/17 15:25: Salicylates < 1 L, Acetaminophen < 10.0 L 05/07/17 15:25: Urine Opiates Screen Negative, Urine Methadone Screen Negative, Ur Barbiturates Screen Negative, Ur Phencyclidine Scrn Negative, Ur Amphetamines Screen Negative, U Benzodiazepines Scrn Negative, U Oth Cocaine Metabols Negative, U Cannabinoids Screen Negative 05/07/17 15:25: Sodium 138, Potassium 4.1, Chloride 103, Carbon Dioxide 24, Anion Gap 15, BUN 13, Creatinine 0.5, Est GFR ( Amer) > 60, Est GFR (Non- Af Amer) > 60, Random Glucose 139 H, Calcium 8.8, Total Bilirubin 0.2, AST 36, ALT 34, Alkaline Phosphatase 75, Total Protein 7.0, Albumin 3.9, Globulin 3.0, Albumin/Globulin Ratio 1.3 05/07/17 15:25: Urine Color Yellow, Urine Appearance Clear, Urine pH 7.0, Ur Specific [place] 1.010, Urine Protein Negative, Urine Glucose (UA) Negative, Urine Ketones Negative, Urine Blood Negative, Urine Nitrate Negative, Urine Bilirubin Negative, Urine Urobilinogen 0.2, Ur Leukocyte Esterase Negative 05/07/17 15:25: WBC 8.9 D, RBC 4.46, Hgb 12.3, Hct 36.5, MCV 81.8, MCH 27.6, MCHC 33.7, RDW 13.1, Plt Count 208, MPV 8.0, Gran % 63.1, Lymph % (Auto) 24.5, Butts % (Auto) 6.9 H, Eos % (Auto) 5.2 H, Baso % (Auto) 0.3, Gran # 5.60, Lymph # 2.2, Butts # 0.6, Eos # 0.5, Baso # 0.03 I have reviewed the lab results: Yes - RAD Interpretation Radiology Orders: 05/07/17 15:07 CHEST PORTABLE [RAD] Stat - EKG Interpretation Interpreted by ED Physician: Yes Type: 12 lead EKG - Medication Orders Current Medication Orders: Discontinued Medications Lorazepam (Ativan) 1 mg PO ONCE ONE PRN Reason: Protocol Stop: 05/07/17 16:23 Last Admin: 05/07/17 16:50 Dose: 1 mg - Scribe Statement The provider has reviewed the documentation as recorded by the Mai Rowe Provider Stoneyibe Attestation: All medical record entries made by the Mai were at my direction and personally dictated by me. I have reviewed the chart and agree that the record accurately reflects my personal performance of the history, physical exam, medical decision making, and the department course for this patient. I have also personally directed, reviewed, and agree with the discharge instructions and disposition. Disposition/Present on Arrival - Present on Arrival Any Indicators Present on Arrival: No History of DVT/PE: No History of Uncontrolled Diabetes: No Urinary Catheter: No History of Decub. Ulcer: No History Surgical Site Infection Following: None - Disposition Have Diagnosis and Disposition been Completed?: Yes Diagnosis: Psychiatric care Disposition: AGAINST MEDICAL ADVICE Disposition Time: 16:06 Condition: GOOD Discharge Instructions (ExitCare): Hallucinations (ED) Additional Instructions: Ms Campbell, thank you for letting us take care of you today. Your provider was Dr. Wen. You were treated for Psychiatric care The emergency medical care you received today was directed at your acute symptoms. If you were prescribed any medication, please fill it and take as directed. It may take several days for your symptoms to resolve. Return to the Emergency Department if your symptoms worsen, do not improve, or if you have any other problems. Please contact your doctor or call one of the physicians/clinics you have been referred to that are listed on the Patient Visit Information form that is included in your discharge packet. Bring any paperwork you were given at discharge with you along with any medications you are taking to your follow up visit. Our treatment cannot replace ongoing medical care by a primary care provider (PCP) outside of the emergency department. Thank you for allowing the [facility] team to be part of your care today. If you had an X-Ray or CT scan: A Radiologist will review the ED reading if any change in treatment is needed we will contact you. If you had a blood, urine, or wound culture: It will take several days for the results, if any change in treatment is needed we will contact you. If you had an STI test: It will take 48 hours for the results. Please call after 1 week if you have not heard back. Referrals: PCP,NO [Primary Care Provider] - Follow up with primary Forms: [employer] (Latvian)
[2017-05-07 15:38] LABS: BASO # 0.03 K/mm3 (0.0-2.0); BASO % 0.3 % (0.0-3.0); EOS # 0.5 (0.0-0.7); EOS % 5.2 % (1.5-5.0); GRAN % 63.1 % (50.0-68.0); HEMOGLOBIN 12.3 g/dL (12.0-16.0); LYMPH # 2.2 (1.2-3.4); LYMPH % 24.5 % (22.0-35.0); MEAN CELL VOLUME 81.8 fl (80.0-105.0); MEAN CORPUSCULAR HEMOGLOBIN 27.6 pg (25.0-35.0); MEAN CORPUSCULAR HGB CONC 33.7 g/dl (31.0-37.0); MONO # 0.6 (0.1-0.6); MONO % 6.9 % (1.0-6.0); PLATELET COUNT 208 10^3/uL (120.0-450.0); RBC 4.46 10^6/uL (3.5-6.1); RED CELL DISTRIBUTION WIDTH 13.1 % (11.5-14.5); WHITE BLOOD COUNT 8.9 10^3/ul (4.5-11.0)
[2017-05-07 15:42] LABS: URINE BILIRUBIN NEGATIVE (NEGATIVE); URINE BLOOD NEGATIVE (NEGATIVE); URINE GLUCOSE (UA) NEGATIVE (NEGATIVE); URINE LEUKOCYTE ESTERASE NEGATIVE Leu/uL (NEGATIVE); URINE NITRATE NEGATIVE (NEGATIVE); URINE PROTEIN NEGATIVE mg/dL (<30 mg/dL); URINE UROBILINOGEN 0.2 E.U./dL (<1 E.U./dL)
[2017-05-07 15:43] LABS: URINE APPEARANCE CLEAR (CLEAR); URINE COLOR YELLOW (YELLOW)
[2017-05-07 15:57] LABS: SALICYLATE < 1 mg/dL (2.0-20.0)
[2017-05-07 15:58] LABS: ALB/GLOB RATIO 1.3 (1.1-1.8); ALBUMIN 3.9 g/dL (3.0-4.8); ALT/SGPT 34 U/L (7-56); AST/SGOT 36 U/L (15-39); BLOOD UREA NITROGEN 13 mg/dL (7-21); CALCIUM 8.8 mg/dL (8.4-10.5); GFR AFRICAN-AMERICAN > 60; GFR NON-AFRICAN AMERICAN > 60
[2017-05-07 16:00] LABS: ACETAMINOPHEN < 10.0 ug/ml (10.0-20.0)
[2017-05-07 16:07] LABS: BARBITURATES, UR NEGATIVE (NEGATIVE); BENZODIAZEPINES, UR NEGATIVE (NEGATIVE); OPIATES, UR NEGATIVE (NEGATIVE); PHENCYCLIDINE, UR NEGATIVE (NEGATIVE)
--- NOTE | 2017-05-07 16:08 | RAD ---
HISTORY: psych COMPARISON: No prior. FINDINGS: LUNGS: No active pulmonary disease. PLEURA: No significant pleural effusion identified, no pneumothorax apparent. CARDIOVASCULAR: Normal. OSSEOUS STRUCTURES: No significant abnormalities. VISUALIZED UPPER ABDOMEN: Normal. OTHER FINDINGS: None. IMPRESSION: No active disease.
[2017-05-07 16:25] VITALS: BP 108/70; PULSE 82; TEMP 98.1
[2017-05-07 17:16] VITALS: O2SAT 99
--- NOTE | 2017-05-08 00:10 | CARD ---
APPROVED REPORT EKG Measurement Heart [id number] <Conclusion> Normal sinus rhythm Low voltage QRS Nonspecific T wave abnormality Abnormal ECG
== END 2017-05-07 17:17 | disposition left against medical advice (07) ==
LOC: ED 14:11
DX: Z00.8 Encounter for other general examination (principal)

== ENCOUNTER 2017-05-08 09:17 | Inpatient (IN) | payer MEDICAID, OTHER ==
[2017-05-08 09:17] VITALS: BMI 34.3
--- NOTE | 2017-05-08 09:39 | ED PDOC ---
Arrival/HPI - General Chief Complaint: Psychiatric Evaluation Time Seen by Provider: 05/08/17 09:33 Historian: Patient - History of Present Illness Narrative History of Present Illness (Text): 05/08/17 09:35 36 y/o female, pmh including htn, psychiatric history of bipolar/paranoid/ psychosis/schizoaffective/depression, c/o request to continue the care for her psychiatric condition. Pt. stated that she has self reduced intake of her medications for psychiatric conditions at home, seen in the ER yesterday and was medically clear, offered psychiatric admission to the [facility] but refused because she would like to be admitted to the [facility] which she was discharge home. Pt. is here today because she would like to have the continuous evaluate of the psychiatric care and see if there is any available bed. Pt. has chest pain or shortness of breath, no palpitation, no night sweat , no dizziness, no other medical or psychological complaints. Past Medical History - Provider Review Nursing Documentation Reviewed: Yes - Infectious Disease Hx of Infectious Diseases: None - Tetanus Immunization Tetanus Immunization: Unknown - Cardiac Hx Cardiac Disorders: Yes Hx Hypertension: Yes - Pulmonary Hx Respiratory Disorders: Yes Hx Asthma: Yes Hx Tuberculosis: No - Neurological Hx Neurological Disorder: No HX Cerebrovascular Accident: No Hx Seizures: No - HEENT Hx HEENT Disorder: No - Renal Hx Renal Disorder: No Hx Dialysis: No - Endocrine/Metabolic Hx Endocrine Disorders: No - Hematological/Oncological Hx Blood Disorders: Yes Hx Anemia: Yes Hx Cancer: No - Integumentary Hx Dermatological Disorder: No - Musculoskeletal/Rheumatological Hx Musculoskeletal Disorders: No - Gastrointestinal Hx Gastrointestinal Disorders: Yes Hx Gastritis: Yes - Genitourinary/Gynecological Hx Genitourinary Disorders: No Hx Sexually Transmitted Diseases: No - Psychiatric Hx Psychophysiologic Disorder: Yes Hx Anxiety: Yes Hx Bipolar Disorder: Yes Hx Substance Use: No - Surgical History Other/Comment: Skin Graft - Anesthesia Hx Anesthesia: Yes Hx Anesthesia Reactions: No Hx Malignant Hyperthermia: No - Suicidal Assessment Feels Threatened In Home Enviroment: No Family/Social History - Physician Review Nursing Documentation Reviewed: Yes Family/Social History: Unknown Family HX Smoking Status: Never Smoked Hx Alcohol Use: No Hx Substance Use: No Hx Substance Use Treatment: No Allergies/Home Meds Allergies/Adverse Reactions: Allergies diphenhydramine HCl [From Benadryl] Allergy (Verified 05/08/17 09:25) ANAPHYLAXIS FISH Allergy (Verified 05/08/17 09:25) RASH fluphenazine [From Prolixin] Allergy (Verified 05/08/17 09:25) ANAPHYLAXIS lactase [From Dairy Aid] Allergy (Verified 05/08/17 09:25) gerd All dairy products haloperidol [From Haldol] Adverse Reaction (Verified 05/08/17 09:25) SHORTNESS OF BREATH haloperidol lactate [From Haldol] Adverse Reaction (Verified 05/08/17 09:25) SHORTNESS OF BREATH seafood Allergy (Uncoded 05/08/17 09:25) RASH Home Medications: Home Meds Medication Instructions Recorded Confirmed Benztropine [Benztropine Mesylate] 1 mg PO BID 04/06/17 05/08/17 Metoprolol Tartrate [Lopressor] 12.5 mg PO ACD 04/06/17 05/08/17 Divalproex [Depakote ER] 500 mg PO DAILY 05/07/17 05/08/17 Divalproex [Depakote] 500 mg PO HS 05/07/17 05/08/17 QUEtiapine [Seroquel XR] 100 mg PO DAILY 05/07/17 05/08/17 QUEtiapine [Seroquel] 100 mg PO HS 05/07/17 05/08/17 Review of Systems - Review of Systems Constitutional: absent: Fatigue, Fevers Eyes: absent: Vision Changes ENT: absent: Hearing Changes Respiratory: absent: SOB, Cough Cardiovascular: absent: Chest Pain Gastrointestinal: absent: Abdominal Pain, Nausea, Vomiting Skin: absent: Rash, Pruritis Neurological: absent: Headache, Dizziness Psychiatric: Anxiety. absent: Depression, Suicidal Ideation Physical Exam Vital Signs Reviewed: Yes Vital Signs Temp Pulse Resp BP Pulse Ox 05/08/17 15:12 82 16 94/54 L 97 05/08/17 11:30 95 H 16 110/78 95 05/08/17 09:30 98.5 F 101 H 19 106/76 99 Temperature: Afebrile Blood Pressure: Normal Pulse: Tachycardic Respiratory Rate: Normal Appearance: Positive for: Well-Appearing, Non-Toxic, Comfortable Pain Distress: None Mental Status: Positive for: Alert and Oriented X 3 - Systems Exam Head: Present: Atraumatic, Normocephalic Pupils: Present: PERRL Extroacular Muscles: Present: EOMI Conjunctiva: Present: Normal Mouth: Present: Moist Mucous Membranes Neck: Present: Normal Range of Motion Respiratory/Chest: Present: Clear to Auscultation, Good Air Exchange. No: Respiratory Distress, Accessory Muscle Use Cardiovascular: Present: Regular Rate and Rhythm, Normal S1, S2. No: Murmurs Abdomen: Present: Normal Bowel Sounds. No: Tenderness, Distention, Peritoneal Signs Back: Present: Normal Inspection Upper Extremity: Present: Normal Inspection. No: Cyanosis, Edema Lower Extremity: Present: Normal Inspection. No: Edema Neurological: Present: GCS=15, CN II-XII Intact, Speech Normal Skin: Present: Warm, Dry, Normal Color. No: Rashes Psychiatric: Present: Alert, Oriented x 3, Normal Insight, Normal Concentration , Anxious Medical Decision Making ED Course and Treatment: 05/08/17 09:43 -Labs and radiology study was perform yesterday, was medically clear and stable for psychiatric evaluation. -Pt. is medically clear and stable for the psychiatric evaluation, spoke to the GENESIS Rodriguez and will talk to the patient. 05/08/17 10:22 -GENESIS Rodriguez spoke to Dr. Gloria Casey, agreed to accept the labs/radiology studies from yesterday, suggest to admit to her service for schizoaffective and depression -Pt. agreed to be admitted. - PA / HANDS PARTER / Resident Statement MD/DO has reviewed & agrees with the documentation as recorded. Disposition/Present on Arrival - Present on Arrival Any Indicators Present on Arrival: No History of DVT/PE: No History of Uncontrolled Diabetes: No Urinary Catheter: No History of Decub. Ulcer: No History Surgical Site Infection Following: None - Disposition Have Diagnosis and Disposition been Completed?: Yes Diagnosis: Schizoaffective disorder, Depression Disposition: HOSPITALIZED Disposition Time: 09:44 Patient Plan: Admission Patient Problems: Current Active Problems Problem Status Onset Depression Acute Schizoaffective disorder Acute Condition: STABLE
[2017-05-08 18:23] VITALS: RESP 18; TEMP 98; O2SAT 98
--- NOTE | 2017-05-08 18:50 | PCM.BM ---
<Abad Coronado - Last Filed: 05/08/17 18:51> Treatment Plan Problems - Problems identified on initial assessmt MEDS NONADHERENCE Date Initiated: 05/08/17 Time Initiated: 18:48 Assessment reference: NA (THOUGHT PROCESS ALTERATION) Status: Active THOUGHT PROCESS ALTERATION Date Initiated: 05/08/17 Time Initiated: 18:49 Assessment reference: NA Status: Active (AGITATED BEHAVIOR) AGITATED BEHAVIOR Date Initiated: 05/08/17 Time Initiated: 18:50 Assessment reference: NA Status: Active Treatment assets and liabiliti Patient Assests: resourceful, self-reliant, negotiates basic needs Patient Liabilities: live alone, physical pain, poor support system, relationship conflicts, language/speech - Milieu Protocol Maintain good personal hygiene: daily Encourage regular showers, daily Remind patient to perform daily oral care, daily Assist patient to perform ADL's Maintain personal safety: daily Educate patient to report safety concerns to staff, daily Monitor environment for contraband/sharps Medication safety: Monitor for expected outcome, potential side effects: daily, Assess barriers to learning: daily, Assess readiness for medication education: daily Discharge/Continuing Care - Education Needs Education Needs: Family Medication, Family Diagnosis/Disease Process, Family Coping Skills, Family Anger Management skills, Family Placement options, Family Pain, Family Health Practices/Safety, Family Personal Hygiene/Grooming - Discharge Discharge Criteria: Tolerates medication w/o severe side effects, Free of Suicidal thoughts, Free of Homicidal thoughts, Normal sleep pattern, Ability to care for self Discharge to:: Home <Billy Lorenzo - Last Filed: 05/11/17 11:50> - Diagnosis (1) Schizoaffective disorder Status: Chronic
[2017-05-08] MEDS: Divalproex 500 mg DR(BID formulation) PO SCH (21:26)
[2017-05-08] MEDS ORDERED: QUEtiapine 50 mg XR Tab PO SCH (22:00)
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
[2017-05-09] MEDS: QUEtiapine 50 mg XR Tab PO SCH (09:15)
[2017-05-09] MEDS: Metoprolol Succinate 25 mg XL Tab PO SCH (09:16)
[2017-05-09] MEDS: Divalproex 500 mg ER (ONCE DAILY formulation) PO SCH (09:16)
[2017-05-09] MEDS: Naproxen 550 mg Tab PO SCH (16:29)
[2017-05-09] MEDS: Divalproex 500 mg DR(BID formulation) PO SCH (21:31)
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
[2017-05-10] MEDS: Pantoprazole 40 mg EC Tab PO SCH (07:25)
[2017-05-10] MEDS: QUEtiapine 50 mg XR Tab PO SCH (08:27)
[2017-05-10] MEDS: Naproxen 550 mg Tab PO SCH ×2 (08:27→15:00)
[2017-05-10] MEDS: Divalproex 500 mg ER (ONCE DAILY formulation) PO SCH (08:28)
[2017-05-10] MEDS: Metoprolol Succinate 25 mg XL Tab PO SCH (08:44)
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
[2017-05-10 16:50] VITALS: BP 138/71; PULSE 72
[2017-05-10] MEDS: Divalproex 500 mg DR(BID formulation) PO SCH (21:22)
[2017-05-11] MEDS: Pantoprazole 40 mg EC Tab PO SCH (07:03)
[2017-05-11] MEDS: Metoprolol Succinate 25 mg XL Tab PO SCH (09:27)
[2017-05-11] MEDS: Naproxen 550 mg Tab PO SCH (09:27)
[2017-05-11] MEDS: Divalproex 500 mg ER (ONCE DAILY formulation) PO SCH (09:27)
[2017-05-11] MEDS: QUEtiapine 50 mg XR Tab PO SCH (09:28)
--- NOTE | 2017-05-11 14:30 | PCM.PYCHPN ---
Psychiatric Progress Note - Psychiatric Progress Note Patient seen today, length of contact: 25 min Patient Chief Complaint: "I'm bored, I want to go home" Problems Identified/Issues Discussed: Patient has been seen and examined. She is oriented to person, time, place, location, and circumstance. Patient states her symptoms have resolved, she is bored, and that she wants to go home. Diagnostic Results: schizoaffective disorder Medication Change: No Medical Record Reviewed: Yes Mental Status Examination - Cognitive Function Orientation: Person, Place Attention: WNL Concentration: WNL Association: WNL Fund of Knowledge: WNL Decription of patient's judgement and insights: Patient has good insight into medical condition. She - Mood Mood: Neutral - Affect Affect: Broad - Speech Speech: Appropriate - Formal Thought Process Formal Thought Process: No Impairment - Suicidal Ideation Suicidal Ideation: No - Homicidal Ideation Homicidal Ideation: No Goal/Treatment Plan - Goal/Treatment Plan Progress Toward Problem(s) and Goals/Treatment Plan: D/C today Estimated Date of D/C: 05/11/17
== END 2017-05-11 15:19 | disposition home or self-care (01) | DRG 430 ==
LOC: ED 09:17 → ERH 10:26 → PSYC 15:56
PROVIDERS: ADMIT Psychiatry & Neurology Psychiatry; ATTEND Psychiatry & Neurology Psychiatry
DX: F25.9 Schizoaffective disorder, unspecified (principal); I10 Essential (primary) hypertension; J45.909 Unspecified asthma, uncomplicated; K29.70 Gastritis, unspecified, without bleeding; F31.9 Bipolar disorder, unspecified; Z91.19 Patient's noncompliance with other medical treatment and regimen

== ENCOUNTER 2017-05-14 16:39 | Emergency (ER) | payer MEDICAID, OTHER ==
[2017-05-14 16:40] VITALS: BMI 34.3
--- NOTE | 2017-05-14 17:29 | ED PDOC ---
Arrival/HPI - General Chief Complaint: Psychiatric Evaluation Time Seen by Provider: 05/14/17 17:09 Historian: Patient - History of Present Illness Narrative History of Present Illness (Text): 05/14/17 17:39 36yr old female presents today feeling "desperate". pt states she cant get into any of her programs. pt denies fever/chills. no chest pain or shortness of breath. no vomiting/diarrhea. no abdominal pain. no dizziness or weakness. denies SI or HI. Past Medical History - Provider Review Nursing Documentation Reviewed: Yes - Travel History Have you recently traveled outside [place] w/in the past 3 mons?: No - Infectious Disease Hx of Infectious Diseases: None - Tetanus Immunization Tetanus Immunization: Unknown - Cardiac Hx Cardiac Disorders: Yes Hx Hypertension: Yes - Pulmonary Hx Respiratory Disorders: Yes Hx Asthma: Yes Hx Tuberculosis: No - Neurological Hx Neurological Disorder: No HX Cerebrovascular Accident: No Hx Seizures: No - HEENT Hx HEENT Disorder: No - Renal Hx Renal Disorder: No Hx Dialysis: No - Endocrine/Metabolic Hx Endocrine Disorders: No - Hematological/Oncological Hx Blood Disorders: Yes Hx Anemia: Yes Hx Cancer: No - Integumentary Hx Dermatological Disorder: No - Musculoskeletal/Rheumatological Hx Musculoskeletal Disorders: No - Gastrointestinal Hx Gastrointestinal Disorders: Yes Hx Gastritis: Yes - Genitourinary/Gynecological Hx Genitourinary Disorders: No Hx Sexually Transmitted Diseases: No - Psychiatric Hx Psychophysiologic Disorder: Yes Hx Anxiety: Yes Hx Bipolar Disorder: Yes Hx Substance Use: No - Surgical History Other/Comment: Skin Graft - Anesthesia Hx Anesthesia: Yes Hx Anesthesia Reactions: No Hx Malignant Hyperthermia: No - Suicidal Assessment Feels Threatened In Home Enviroment: No Family/Social History - Physician Review Nursing Documentation Reviewed: Yes Family/Social History: Unknown Family HX Smoking Status: Never Smoked Hx Alcohol Use: No Hx Substance Use: No Hx Substance Use Treatment: No Allergies/Home Meds Allergies/Adverse Reactions: Allergies diphenhydramine HCl [From Benadryl] Allergy (Verified 05/08/17 09:25) ANAPHYLAXIS FISH Allergy (Verified 05/08/17 09:25) RASH fluphenazine [From Prolixin] Allergy (Verified 05/08/17 09:25) ANAPHYLAXIS haloperidol [From Haldol] Adverse Reaction (Verified 05/08/17 09:25) SHORTNESS OF BREATH haloperidol lactate [From Haldol] Adverse Reaction (Verified 05/08/17 09:25) SHORTNESS OF BREATH seafood Allergy (Uncoded 05/08/17 09:25) RASH Home Medications: Home Meds Medication Instructions Recorded Confirmed Benztropine [Benztropine Mesylate] 1 mg PO BID 04/06/17 05/14/17 Metoprolol Tartrate [Lopressor] 12.5 mg PO ACD 04/06/17 05/14/17 Divalproex [Depakote ER] 750 mg PO DAILY 05/07/17 05/14/17 Divalproex [Depakote] 500 mg PO HS 05/07/17 05/14/17 QUEtiapine [Seroquel XR] 125 mg PO DAILY 05/07/17 05/14/17 QUEtiapine [Seroquel] 100 mg PO HS 05/07/17 05/14/17 Review of Systems - Review of Systems Constitutional: absent: Fatigue, Fevers Respiratory: absent: SOB, Cough Cardiovascular: absent: Chest Pain, Palpitations Gastrointestinal: absent: Abdominal Pain, Nausea, Vomiting Genitourinary Female: absent: Dysuria Musculoskeletal: absent: Arthralgias, Back Pain, Neck Pain Skin: absent: Rash, Pruritis Neurological: absent: Headache, Dizziness Psychiatric: Anxiety, Depression. absent: Suicidal Ideation Physical Exam Vital Signs Reviewed: Yes Vital Signs Temp Pulse Resp BP Pulse Ox 05/14/17 21:55 80 16 120/70 99 05/14/17 18:00 80 16 121/71 99 05/14/17 16:55 98.7 F 76 16 115/78 100 Temperature: Afebrile Blood Pressure: Normal Pulse: Regular Respiratory Rate: Normal Appearance: Positive for: Well-Appearing, Non-Toxic, Comfortable Pain Distress: None Mental Status: Positive for: Alert and Oriented X 3 - Systems Exam Head: Present: Atraumatic Mouth: Present: Moist Mucous Membranes Neck: Present: Normal Range of Motion Respiratory/Chest: Present: Clear to Auscultation Cardiovascular: Present: Regular Rate and Rhythm Skin: Present: Warm, Dry, Normal Color. No: Rashes Psychiatric: Present: Alert, Oriented x 3 Medical Decision Making ED Course and Treatment: 05/14/17 17:44 Patient is nontoxic well-appearing in no distress vital signs are stable. CBC WNL CMP WNL Tylenol WNL Salicylate WNL Alcohol level WNL Urine drug screen wnl UA; wnl cxr: wnl ekg normal sinus rhythm at 76 bpm normal axis normal intervals no ST elevations pt is medically cleared for PES evaluation Patient was seen and evaluated by PES screener: arnol pt is without SI or HI. pt cleared psychiatrically for discharge with a list of providers that the patient can follow with. Impression; schizoaffective disorder Follow up with outpatient services Utilize the list of providers that was provided to you. return if any concerning symptoms develop. - Lab Interpretations Lab Results: 05/14/17 17:52 05/14/17 17:52 Lab Results 05/14/17 17:52: Urine Opiates Screen Negative, Urine Methadone Screen Negative, Ur Barbiturates Screen Negative, Ur Phencyclidine Scrn Negative, Ur Amphetamines Screen Negative, U Benzodiazepines Scrn Negative, U Oth Cocaine Metabols Negative, U Cannabinoids Screen Negative 05/14/17 17:52: Alcohol, Quantitative < 10 05/14/17 17:52: Salicylates < 1 L, Acetaminophen < 10.0 L 05/14/17 17:52: Urine Color Yellow, Urine Appearance Sl cloudy, Urine pH 6.5, Ur Specific [place] 1.025, Urine Protein Trace H, Urine Glucose (UA) Negative, Urine Ketones Negative, Urine Blood Negative, Urine Nitrate Negative, Urine Bilirubin Negative, Urine Urobilinogen 0.2, Ur Leukocyte Esterase Negative, Urine RBC 2 - 5, Urine WBC 1 - 3, Ur Epithelial Cells 6 - 8, Urine Bacteria Mod , Urine Other Fiber 05/14/17 17:52: WBC 9.5, RBC 4.47, Hgb 12.3, Hct 36.4, MCV 81.4, MCH 27.5, MCHC 33.8, RDW 13.3, Plt Count 250, MPV 8.1, Gran % 51.8, Lymph % (Auto) 33.4, [place] % (Auto) 8.7 H, Eos % (Auto) 5.4 H, Baso % (Auto) 0.7, Gran # 4.91, Lymph # 3.2 , [place] # 0.8 H, Eos # 0.5, Baso # 0.07 05/14/17 17:52: Sodium 139, Potassium 4.0, Chloride 103, Carbon Dioxide 23, Anion Gap 17, BUN 17, Creatinine 0.5, Est GFR ( Amer) > 60, Est GFR (Non- Af Amer) > 60, Random Glucose 90, Calcium 9.0, Total Bilirubin 0.3, AST 30, ALT 29, Alkaline Phosphatase 82, Total Protein 7.5, Albumin 4.3, Globulin 3.2, Albumin/Globulin Ratio 1.4 - RAD Interpretation Radiology Orders: 05/14/17 17:12 CHEST PORTABLE [RAD] Stat Disposition/Present on Arrival - Present on Arrival Any Indicators Present on Arrival: No History of DVT/PE: No History of Uncontrolled Diabetes: No Urinary Catheter: No History of Decub. Ulcer: No History Surgical Site Infection Following: None - Disposition Have Diagnosis and Disposition been Completed?: Yes Diagnosis: Schizoaffective disorder Disposition: HOME/ ROUTINE Disposition Time: 21:20 Patient Plan: Discharge Condition: GOOD Additional Instructions: Follow up with outpatient services Utilize the list of providers that was provided to you. return if any concerning symptoms develop. Referrals: Lexis Pulido MD [Staff Provider] - Follow up with primary [facility] [Outside] - Follow up with primary Forms: [employer] (Armenian)
[2017-05-14 17:52] VITALS: RESP 16; TEMP 98.7
[2017-05-14 18:09] LABS: ALB/GLOB RATIO 1.4 (1.1-1.8); ALBUMIN 4.3 g/dL (3.0-4.8); ALT/SGPT 29 U/L (7-56); AST/SGOT 30 U/L (15-39); BLOOD UREA NITROGEN 17 mg/dL (7-21); GFR AFRICAN-AMERICAN > 60; GFR NON-AFRICAN AMERICAN > 60
[2017-05-14 18:10] LABS: SALICYLATE < 1 mg/dL (2.0-20.0)
[2017-05-14 18:11] LABS: ACETAMINOPHEN < 10.0 ug/ml (10.0-20.0)
[2017-05-14 18:12] LABS: BASO # 0.07 K/mm3 (0.0-2.0); BASO % 0.7 % (0.0-3.0); EOS # 0.5 (0.0-0.7); EOS % 5.4 % (1.5-5.0); GRAN # 4.91 (1.4-6.5); GRAN % 51.8 % (50.0-68.0); HEMOGLOBIN 12.3 g/dL (12.0-16.0); LYMPH # 3.2 (1.2-3.4); LYMPH % 33.4 % (22.0-35.0); MEAN CELL VOLUME 81.4 fl (80.0-105.0); MEAN CORPUSCULAR HEMOGLOBIN 27.5 pg (25.0-35.0); MEAN CORPUSCULAR HGB CONC 33.8 g/dl (31.0-37.0); MEAN PLATELET VOLUME 8.1 fl (7.0-11.0); MONO # 0.8 (0.1-0.6); MONO % 8.7 % (1.0-6.0); PLATELET COUNT 250 10^3/uL (120.0-450.0); RBC 4.47 10^6/uL (3.5-6.1); RED CELL DISTRIBUTION WIDTH 13.3 % (11.5-14.5); WHITE BLOOD COUNT 9.5 10^3/ul (4.5-11.0)
[2017-05-14 18:15] LABS: PH,URINE 6.5 (4.7-8.0); URINE BILIRUBIN NEGATIVE (NEGATIVE); URINE BLOOD NEGATIVE (NEGATIVE); URINE GLUCOSE (UA) NEGATIVE (NEGATIVE); URINE LEUKOCYTE ESTERASE NEGATIVE Leu/uL (NEGATIVE); URINE NITRATE NEGATIVE (NEGATIVE); URINE PROTEIN TRACE mg/dL (<30 mg/dL); URINE UROBILINOGEN 0.2 E.U./dL (<1 E.U./dL)
[2017-05-14 18:19] LABS: BARBITURATES, UR NEGATIVE (NEGATIVE); BENZODIAZEPINES, UR NEGATIVE (NEGATIVE); OPIATES, UR NEGATIVE (NEGATIVE); PHENCYCLIDINE, UR NEGATIVE (NEGATIVE)
[2017-05-14 18:35] LABS: URINE APPEARANCE SL CLOUDY (CLEAR); URINE COLOR YELLOW (YELLOW)
[2017-05-14 18:42] LABS: URINE BACTERIA MOD (NEG)
[2017-05-14 19:15] VITALS: PULSE 80; O2SAT 99
[2017-05-14 22:12] VITALS: BP 120/70
--- NOTE | 2017-05-15 08:20 | RAD ---
HISTORY: PES eval COMPARISON: Comparison is made to 05/07/2017 FINDINGS: LUNGS: No active pulmonary disease. PLEURA: No significant pleural effusion identified, no pneumothorax apparent. CARDIOVASCULAR: Normal. OSSEOUS STRUCTURES: No significant abnormalities. VISUALIZED UPPER ABDOMEN: Normal. OTHER FINDINGS: None. IMPRESSION: No evidence of new infiltrate or consolidation in the lungs.
--- NOTE | 2017-05-15 09:39 | CARD ---
APPROVED REPORT EKG Measurement Heart [id number] [id number] <Conclusion> Normal sinus rhythm Low voltage QRS Nonspecific T wave abnormality Abnormal ECG
== END 2017-05-14 22:15 | disposition home or self-care (01) ==
LOC: ED 16:39
DX: F25.9 Schizoaffective disorder, unspecified (principal)

== ENCOUNTER 2017-05-26 17:26 | Inpatient (IN) | payer MEDICAID, OTHER ==
[2017-05-26 17:26] VITALS: BMI 34.3
--- NOTE | 2017-05-26 17:46 | ED PDOC ---
Arrival/HPI - General Time Seen by Provider: 05/26/17 17:28 Historian: Patient, EMS - History of Present Illness Narrative History of Present Illness (Text): 05/26/17 17:42 This 36 y/o female, pmh including htn, psychiatric history of bipolar/paranoid/ psychosis/schizoaffective/depression, presents to this ED by BLS for Psychiatric evaluation. Patient was seen by her doctor. Patient stated she wanted to hurt herself in front of her doctor. Patient was found to have a razor in her purse. Doctor office called ambulance. Patient denies this allegations. Patient denies SI, or HI. Denies paranoia, hallucination, illegal drug use, alcohol abuse, cp, son, dizziness, TEJADA or abnormal gait. Time/Duration: Prior to Arrival Context: Other (doctor's office) Past Medical History - Provider Review Nursing Documentation Reviewed: Yes - Infectious Disease Hx of Infectious Diseases: None - Tetanus Immunization Tetanus Immunization: Unknown - Cardiac Hx Cardiac Disorders: Yes Hx Hypertension: Yes - Pulmonary Hx Respiratory Disorders: Yes Hx Asthma: Yes Hx Tuberculosis: No - Neurological Hx Neurological Disorder: No HX Cerebrovascular Accident: No Hx Seizures: No - HEENT Hx HEENT Disorder: No - Renal Hx Renal Disorder: No Hx Dialysis: No - Endocrine/Metabolic Hx Endocrine Disorders: No - Hematological/Oncological Hx Blood Disorders: Yes Hx Anemia: Yes Hx Cancer: No - Integumentary Hx Dermatological Disorder: No - Musculoskeletal/Rheumatological Hx Musculoskeletal Disorders: No - Gastrointestinal Hx Gastrointestinal Disorders: Yes Hx Gastritis: Yes - Genitourinary/Gynecological Hx Genitourinary Disorders: No Hx Sexually Transmitted Diseases: No - Psychiatric Hx Psychophysiologic Disorder: Yes Hx Anxiety: Yes Hx Bipolar Disorder: Yes Hx Substance Use: No - Surgical History Other/Comment: Skin Graft - Anesthesia Hx Anesthesia: Yes Hx Anesthesia Reactions: No Hx Malignant Hyperthermia: No - Suicidal Assessment Feels Threatened In Home Enviroment: No Family/Social History - Physician Review Nursing Documentation Reviewed: Yes Family/Social History: Other (non-contributory) Smoking Status: Never Smoked Hx Alcohol Use: No Hx Substance Use: No Hx Substance Use Treatment: No Allergies/Home Meds Allergies/Adverse Reactions: Allergies diphenhydramine HCl [From Benadryl] Allergy (Verified 05/08/17 09:25) ANAPHYLAXIS FISH Allergy (Verified 05/08/17 09:25) RASH fluphenazine [From Prolixin] Allergy (Verified 05/08/17 09:25) ANAPHYLAXIS haloperidol [From Haldol] Adverse Reaction (Verified 05/08/17 09:25) SHORTNESS OF BREATH haloperidol lactate [From Haldol] Adverse Reaction (Verified 05/08/17 09:25) SHORTNESS OF BREATH seafood Allergy (Uncoded 05/08/17 09:25) RASH Home Medications: Home Meds Medication Instructions Recorded Confirmed Benztropine [Benztropine Mesylate] 1 mg PO BID 04/06/17 05/14/17 Metoprolol Tartrate [Lopressor] 12.5 mg PO ACD 04/06/17 05/14/17 Divalproex [Depakote ER] 750 mg PO DAILY 05/07/17 05/14/17 Divalproex [Depakote] 500 mg PO HS 05/07/17 05/14/17 QUEtiapine [Seroquel XR] 125 mg PO DAILY 05/07/17 05/14/17 QUEtiapine [Seroquel] 100 mg PO HS 05/07/17 05/14/17 Review of Systems - Review of Systems Constitutional: Normal. absent: Fatigue, Weight Change Eyes: Normal ENT: Normal Respiratory: Normal. absent: SOB, Cough, Sputum Cardiovascular: Normal. absent: Chest Pain, Palpitations Gastrointestinal: Normal. absent: Abdominal Pain, Nausea, Vomiting Genitourinary Female: Normal. absent: Dysuria, Frequency, Hematuria Musculoskeletal: Normal Skin: Normal Neurological: Normal Endocrine: Normal Hemo/Lymphatic: Normal Psychiatric: Depression, Suicidal Ideation Physical Exam Vital Signs Temp Pulse Resp BP Pulse Ox 05/26/17 20:12 75 131/86 05/26/17 18:00 97.7 F 05/26/17 17:58 84 18 127/78 100 Temperature: Afebrile Blood Pressure: Normal Pulse: Regular Respiratory Rate: Normal Appearance: Positive for: Well-Appearing, Non-Toxic, Comfortable Pain Distress: None Mental Status: Positive for: Alert and Oriented X 3 - Systems Exam Head: Present: Atraumatic, Normocephalic Pupils: Present: PERRL Extroacular Muscles: Present: EOMI Conjunctiva: Present: Normal Mouth: Present: Moist Mucous Membranes Neck: Present: Normal Range of Motion Respiratory/Chest: Present: Clear to Auscultation, Good Air Exchange. No: Respiratory Distress, Accessory Muscle Use Cardiovascular: Present: Regular Rate and Rhythm, Normal S1, S2. No: Murmurs Abdomen: Present: Normal Bowel Sounds. No: Tenderness, Distention, Peritoneal Signs Back: Present: Normal Inspection Upper Extremity: Present: Normal Inspection. No: Cyanosis, Edema Lower Extremity: Present: Normal Inspection. No: Edema Neurological: Present: GCS=15, CN II-XII Intact, Speech Normal Skin: Present: Warm, Dry, Normal Color. No: Rashes Psychiatric: Present: Alert, Oriented x 3, Anxious Medical Decision Making ED Course and Treatment: 05/26/17 20:55 PES screener, Sheri spoke with doctor Gloria, and they are recommending admission. Re-evaluation Time: 20:55 Reassessment Condition: Re-examined, Improving,but remains with symptoms - Lab Interpretations Lab Results: 05/26/17 18:16 Lab Results 05/26/17 19:50: Urine Color Yellow, Urine Appearance Clear, Urine pH 6.0, Ur Specific [place] 1.015, Urine Protein Negative, Urine Glucose (UA) Negative, Urine Ketones Negative, Urine Blood Large H, Urine Nitrate Negative, Urine Bilirubin Negative, Urine Urobilinogen 0.2, Ur Leukocyte Esterase Negative, Urine RBC 25 - 30, Urine WBC 0 - 2, Ur Epithelial Cells 3 - 4, Urine HCG, Qual Negative 05/26/17 19:50: Urine Opiates Screen Negative, Urine Methadone Screen Negative, Ur Barbiturates Screen Negative, Ur Phencyclidine Scrn Negative, Ur Amphetamines Screen Negative, U Benzodiazepines Scrn Negative, U Oth Cocaine Metabols Negative, U Cannabinoids Screen Negative 05/26/17 18:16: Sodium 138, Potassium 4.0, Chloride 103, Carbon Dioxide 25, Anion Gap 14, BUN 16, Creatinine 0.5, Est GFR ( Amer) > 60, Est GFR (Non- Af Amer) > 60, Random Glucose 82, Calcium 8.7, Total Bilirubin 0.2, AST 24, ALT 30, Alkaline Phosphatase 72, Total Protein 7.0, Albumin 4.0, Globulin 3.0, Albumin/Globulin Ratio 1.3 - Medication Orders Current Medication Orders: Discontinued Medications Benztropine Mesylate (Cogentin) 1 mg PO STAT STA Stop: 05/26/17 20:17 Last Admin: 05/26/17 20:39 Dose: 1 mg Divalproex Sodium (Depakote Er(Once Daily)) 500 mg PO STAT STA PRN Reason: Protocol Stop: 05/26/17 20:18 Last Admin: 05/26/17 20:39 Dose: 500 mg Lorazepam (Ativan) 1 mg PO ONCE ONE PRN Reason: Protocol Stop: 05/26/17 18:52 Last Admin: 05/26/17 20:11 Dose: Not Given Non-Admin Reason: Patient Refused Metoprolol Tartrate (Lopressor) 12.5 mg PO STAT STA Stop: 05/26/17 18:56 Last Admin: 05/26/17 20:12 Dose: 12.5 mg Quetiapine Fumarate (Seroquel) 100 mg PO STAT STA PRN Reason: Protocol Stop: 05/26/17 20:18 Last Admin: 05/26/17 20:39 Dose: 100 mg Disposition/Present on Arrival - Present on Arrival Any Indicators Present on Arrival: No History of DVT/PE: No History of Uncontrolled Diabetes: No Urinary Catheter: No History Surgical Site Infection Following: None - Disposition Have Diagnosis and Disposition been Completed?: Yes Diagnosis: Schizoaffective disorder Disposition: HOSPITALIZED Disposition Time: 20:56 Patient Plan: Admission Patient Problems: Current Active Problems Problem Status Onset Schizoaffective disorder Acute Condition: STABLE Referrals: PCP,NO [Primary Care Provider] - Follow up with primary
[2017-05-26 19:08] LABS: ALB/GLOB RATIO 1.3 (1.1-1.8); ALKALINE PHOSPHATASE 72 U/L (38-133); ALT/SGPT 30 U/L (7-56); AST/SGOT 24 U/L (15-39); BILIRUBIN,TOTAL 0.2 mg/dL (0.2-1.3); BLOOD UREA NITROGEN 16 mg/dL (7-21); CALCIUM 8.7 mg/dL (8.4-10.5); CARBON DIOXIDE 25 mmol/L (21-33); CHLORIDE 103 mmol/L (98-107); GFR AFRICAN-AMERICAN > 60; GLUCOSE,RANDOM 82 mg/dL (70-110); SODIUM 138 mmol/L (132-148)
[2017-05-26 20:11] LABS: URINE BILIRUBIN NEGATIVE (NEGATIVE); URINE BLOOD LARGE (NEGATIVE); URINE GLUCOSE (UA) NEGATIVE (NEGATIVE); URINE KETONE NEGATIVE (NEGATIVE); URINE LEUKOCYTE ESTERASE NEGATIVE Leu/uL (NEGATIVE); URINE PROTEIN NEGATIVE mg/dL (<30 mg/dL); URINE UROBILINOGEN 0.2 E.U./dL (<1 E.U./dL)
[2017-05-26 20:12] LABS: URINE APPEARANCE CLEAR (CLEAR); URINE COLOR YELLOW (YELLOW)
[2017-05-26 20:15] LABS: URINE RBC 25 - 30 /hpf (0-2); URINE WBC 0 - 2 /hpf (0-6)
[2017-05-26] MEDS ORDERED: Divalproex 500 mg ER (ONCE DAILY formulation) PO STA (20:17)
[2017-05-26 22:43] VITALS: RESP 20
[2017-05-26] MEDS ORDERED: Magnesium Hydroxide Susp 30 ml UD PO PRN (23:17)
[2017-05-26] MEDS ORDERED: Alum-Mag Hydrox-Simethicone Susp (30 mL) PO PRN (23:17)
--- NOTE | 2017-05-27 00:48 | PCM.BM ---
<Trevor Campbell - Last Filed: 05/27/17 00:45> Treatment Plan Problems - Problems identified on initial assessmt DEPRESSION Date Initiated: 05/26/17 Time Initiated: 23:00 Assessment reference: NA Status: Active PARANOIA Date Initiated: 05/26/17 Time Initiated: 23:00 Assessment reference: NA Status: Active SUICIDAL BEHAVIOR Date Initiated: 05/26/17 Assessment reference: NA Status: Active Treatment assets and liabiliti Patient Assests: adapts well, cooperative, educated, motivated, resourceful, self-reliant, ADL independent, negotiates basic needs, cognitively intact Patient Liabilities: live alone, physical pain, financial problems, poor support system, medical problems - Milieu Protocol Maintain good personal hygiene: daily Encourage regular showers, every shift Remind patient to perform daily oral care, every shift Assist patient to perform ADL's Maintain personal safety: every shift Educate patient to report safety concerns to staff, every shift Monitor environment for contraband/sharps Medication safety: Monitor for expected outcome, potential side effects: every shift, Assess barriers to learning: every shift, Assess readiness for medication education: every shift Family Contact Family involvement: Family/SO is involved Family contact: Patient agrees to contact Discharge/Continuing Care - Education Needs Education Needs: Patient Medication, Patient Diagnosis/Disease Process, Patient Coping Skills, Patient Anger Management skills, Patient Placement options, Patient Community resources, Patient Pain, Patient Nutrition, Patient Health Practices/Safety, Patient Personal Hygiene/Grooming - Discharge Discharge Criteria: Free of Suicidal thoughts, Free of paranoid thoughts, Free of agitation, Normal sleep pattern, Ability to care for self <Abad Coronado - Last Filed: 05/27/17 09:56> - Milieu Protocol Maintain good personal hygiene: daily Encourage regular showers, daily Remind patient to perform daily oral care, daily Assist patient to perform ADL's Maintain personal safety: daily Educate patient to report safety concerns to staff, daily Monitor environment for contraband/sharps Medication safety: Monitor for expected outcome, potential side effects: daily, Assess barriers to learning: daily, Assess readiness for medication education: daily Discharge/Continuing Care - Education Needs Education Needs: Patient Medication, Patient Diagnosis/Disease Process, Patient Coping Skills, Patient Anger Management skills, Patient Placement options, Patient Activities of Daily Living, Patient Health Practices/Safety, Patient Personal Hygiene/Grooming, Patient Aftercare Safety Plan <Gloria Steele - Last Filed: 05/27/17 15:26> - Diagnosis (1) Schizoaffective disorder, bipolar type Status: Acute Interventions: 05/27/17 15:26 Psychoeducation/psychotherapy Psychopharmacology/adjustment of medications as needed/ monitoring possible side effects Evaluate pt on daily basis Compliance with medications and follow up appointments Long acting medication if pt is noncompliant with pill form Suicide and homicide risk assessment and prevention, coping strategies, safety plan Relapse prevention Reduction of symptoms Improve functional status Possible assertive community treatment Cognitive behavioral therapy Family intervention Possible social skill training as outpatient <Katherine Moran - Last Filed: 05/28/17 10:26>
[2017-05-27 02:33] LABS: CHOLESTEROL 189 mg/dL (130-200)
[2017-05-27 02:42] LABS: GLUCOSE,FASTING 82 mg/dL (65-110)
[2017-05-27] MEDS: QUEtiapine 50 mg XR Tab PO SCH (09:05)
[2017-05-27] MEDS: Divalproex 500 mg ER (ONCE DAILY formulation) PO SCH (09:05)
--- NOTE | 2017-05-27 09:32 | CARD ---
APPROVED REPORT EKG Measurement Heart [id number] <Conclusion> Normal sinus rhythm Nonspecific T wave abnormality Abnormal ECG
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
[2017-05-27] MEDS: Divalproex 500 mg DR(BID formulation) PO SCH (21:36)
[2017-05-28] MEDS: Divalproex 500 mg ER (ONCE DAILY formulation) PO SCH (08:49)
[2017-05-28] MEDS: QUEtiapine 50 mg XR Tab PO SCH (08:59)
[2017-05-28] MEDS ORDERED: Divalproex 500 mg ER (ONCE DAILY formulation) PO SCH (15:03)
[2017-05-28] MEDS ORDERED: QUEtiapine 50 mg XR Tab PO SCH (15:04)
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
[2017-05-28] MEDS: Divalproex 500 mg DR(BID formulation) PO SCH (21:33)
[2017-05-29 06:51] VITALS: O2SAT 96
[2017-05-29] MEDS ORDERED: Divalproex 250 mg ER (ONCE DAILY formulation) PO SCH ×2 (08:00→09:15)
[2017-05-29] MEDS ORDERED: QUEtiapine 50 mg XR Tab PO SCH ×2 (09:15→14:07)
--- NOTE | 2017-05-29 11:12 | CP.PCM.CON ---
History of Present Illness - History of Present Illness History of Present Illness: Ms. Campbell is a 36-year-old woman with a past medical history of schizoaffective disorder and is currently admitted to the psychiatric unit for adjustment of medications. She has had tardive dyskinesia for many years and has not responded to any therapy attempted in the past, according to the patient. I was called to asses and assist in this regard. The patient states that she has been on cogentin and feels like it causes memory problems for her. She does not know if she has been on Clozapine in the past. She complained of chronic back pain, but had not other complaints. Review of Systems - Review of Systems All systems: reviewed and no additional remarkable complaints except Past Patient History - Infectious Disease Hx of Infectious Diseases: None - Tetanus Immunizations Tetanus Immunization: Unknown - Past Social History Smoking Status: Never Smoked - CARDIAC Hx Cardiac Disorders: Yes Hx Hypertension: Yes - PULMONARY Hx Respiratory Disorders: Yes Hx Asthma: Yes Hx Tuberculosis: No - NEUROLOGICAL Hx Neurological Disorder: No HX Cerebrovascular Accident: No Hx Seizures: No - HEENT Hx HEENT Problems: No - RENAL Hx Chronic Kidney Disease: No Hx Dialysis: No - ENDOCRINE/METABOLIC Hx Endocrine Disorders: No - HEMATOLOGICAL/ONCOLOGICAL Hx Blood Disorders: Yes Hx Anemia: Yes Hx Cancer: No - INTEGUMENTARY Hx Dermatological Problems: No - MUSCULOSKELETAL/RHEUMATOLOGICAL Hx Musculoskeletal Disorders: No - GASTROINTESTINAL Hx Gastrointestinal Disorders: Yes Hx Gastritis: Yes - GENITOURINARY/GYNECOLOGICAL Hx Genitourinary Disorders: No Hx Sexually Transmitted Disorders: No - PSYCHIATRIC Hx Psychophysiologic Disorder: Yes Hx Anxiety: Yes Hx Bipolar Disorder: Yes Hx Substance Use: No - SURGICAL HISTORY Hx Surgeries: No Other/Comment: Skin Graft - ANESTHESIA Hx Anesthesia: Yes Hx Anesthesia Reactions: No Hx Malignant Hyperthermia: No Meds Allergies/Adverse Reactions: Allergies Allergy/AdvReac Type Severity Reaction Status Date / Time diphenhydramine HCl Allergy ANAPHYLAXIS Verified 05/27/17 00:26 [From Benadryl] FISH Allergy RASH Verified 05/27/17 00:26 fluphenazine [From Prolixin] Allergy ANAPHYLAXIS Verified 05/27/17 00:26 haloperidol [From Haldol] AdvReac SHORTNESS Verified 05/27/17 00:26 OF BREATH haloperidol lactate AdvReac SHORTNESS Verified 05/27/17 00:26 [From Haldol] OF BREATH seafood Allergy RASH Uncoded 05/27/17 00:26 - Medications Medications: Current Medications Acetaminophen (Tylenol 325mg Tab) 650 mg PO Q4H PRN PRN Reason: Pain, Mild (1-3) Last Admin: 05/28/17 08:56 Dose: 650 mg Al Hydrox/Mg Hydrox/Simethicone (Maalox Plus 30 Ml) 30 ml PO DAILY PRN PRN Reason: Upset Stomach Benztropine Mesylate (Cogentin) 1 mg PO HS [facility] Last Admin: 05/28/17 21:33 Dose: 1 mg Benztropine Mesylate (Cogentin) 1 mg PO DAILY [facility] Last Admin: 05/29/17 09:07 Dose: 1 mg Clonazepam (Klonopin) 1 mg PO 0800,2200 [facility] PRN Reason: Protocol Last Admin: 05/29/17 09:11 Dose: 1 mg Divalproex Sodium (Depakote Dr(*Bid*)) 500 mg PO HS [facility] Last Admin: 05/28/17 21:33 Dose: 500 mg Divalproex Sodium (Depakote Er(Once Daily)) 500 mg PO DAILY [facility] PRN Reason: Protocol Magnesium Hydroxide (Milk Of Magnesia) 30 ml PO DAILY PRN PRN Reason: Constipation Metoprolol Tartrate (Lopressor) 12.5 mg PO DAILY [facility] Last Admin: 05/29/17 09:08 Dose: 12.5 mg Quetiapine Fumarate (Seroquel) 100 mg PO HS [facility] PRN Reason: Protocol Quetiapine Fumarate (Seroquel Xr) 100 mg PO DAILY [facility] PRN Reason: Protocol Topiramate (Topamax) 50 mg PO 0800,1400 [facility] PRN Reason: Protocol Last Admin: 05/29/17 09:12 Dose: 50 mg Zolpidem Tartrate (Ambien) 10 mg PO [facility] PRN Reason: Protocol Last Admin: 05/28/17 21:33 Dose: 10 mg Physical Exam - Constitutional Appears: Well - Head Exam Head Exam: ATRAUMATIC, NORMAL INSPECTION, NORMOCEPHALIC - Eye Exam Eye Exam: EOMI, Normal appearance, PERRL - ENT Exam ENT Exam: Mucous Membranes Moist, Normal Exam - Neck Exam Neck exam: Positive for: Normal Inspection - Respiratory Exam Respiratory Exam: Clear to Auscultation Bilateral, NORMAL BREATHING PATTERN - Cardiovascular Exam Cardiovascular Exam: REGULAR RHYTHM, +S1, +S2 - Rectal Exam Rectal Exam: Deferred - Extremities Exam Extremities exam: Positive for: normal inspection - Back Exam Back exam: NORMAL INSPECTION - Neurological Exam Neurological exam: Alert, CN II-XII Intact, Normal Gait, Oriented x3, Reflexes Normal Additional comments: She has occasional right facial twitching with eye squinting and subtle lip smacking movements. - Expanded Neurological Exam Expanded Patient oriented to: person, place, time Cranial nerves: EOM's Intact: Normal, Facial Sensation: Normal Ataxia: No Cerebellar Function: Finger to Nose: Normal, Heel to Brian: Normal Upper motor neuron: Babinski Sign: Normal Sensory exam: Lower Extremity 2 Point Discrimination: Normal, Lower Extremity Light Touch: Normal, Lower Extremity Pin Prick: Normal, Lower Extremity Temperature: Normal, Upper Extremity 2 Point Discrimination: Normal, Upper Extremity Light Touch: Normal, Upper Extremity Pin Prick: Normal, Upper Extremity Temperature: Normal Neuro motor strength exam: Left Upper Extremity: 5, Right Upper Extremity: 5, Left Lower Extremity: 5, Right Lower Extremity: 5 DTR: Achilles Tendon Left: 2+, Achilles Tendon Right: 2+, Bicep Left: 2+, Bicep Right: 2+, Brachioradialis Left: 2+, Brachioradialis Right: 2+, Patellar Left: 2 +, Patellar Right: 2+, Tricep Left: 2+, Tricep Right: 2+ Results - Vital Signs Recent Vital Signs: Last Vital Signs Temp 98.1 F 05/29/17 06:49 Pulse 69 05/29/17 06:49 Resp 20 05/29/17 06:49 BP 116/67 05/29/17 06:49 Pulse Ox 96 05/29/17 06:49 - Labs Result Diagrams: 05/26/17 18:16 Assessment & Plan (1) Tardive dyskinesia Assessment and Plan: Unfortunately, this appears to be a chronic condition that is not easily managed and will require prolonged outpatient follow-up. There are no effective therapies currently available on the market. Thank you. Status: Chronic Priority: Medium
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
[2017-05-29] MEDS: Naproxen 550 mg Tab PO PRN (17:47)
[2017-05-29] MEDS: Divalproex 500 mg ER (ONCE DAILY formulation) PO SCH (21:00)
--- NOTE | 2017-05-30 08:28 | PCM.PYCHPN ---
Psychiatric Progress Note - Psychiatric Progress Note Patient seen today, length of contact: 25 minutes Patient Chief Complaint: "feeling alright" Problems Identified/Issues Discussed: I reviewed assessment and recent notes. Patient continues to be labile and unpredictable, this behavior is similar to her prior admissions. Can be uncooperative, easily agitated and argumentative when needs aren't met immediately. She requires redirection and limit setting by staff. Thus far keeping to herself on the unit for the most part. Patient remains a little irritable during my visit with her today. Oriented x3. She reports that she is "feeling alright" and denies hallucinations, suicidal thoughts or homicidal thoughts. She is tolerating her medications and denies any new discomfort or pain. Continues to have chronic back pain, unchanged. Indicates she slept well. Thus far there have been no major behavioral issues overnight however she remains unpredictable. Insight and judgment are poor. Diagnostic Results: schizoaffective disorder Medication Change: No Medical Record Reviewed: Yes Mental Status Examination - Cognitive Function Orientation: Person, Place, Situation, Time Memory: Intact, Impaired Attention: Poor Concentration: Poor Association: Loose Fund of Knowledge: Poor - Mood Mood: Depressed ("feeling alright"), Anxious - Affect Affect: Flat - Formal Thought Process Formal Thought Process: Delusions, Paranoia, Loosening of associations, Circumstantial - Suicidal Ideation Suicidal Ideation: No - Homicidal Ideation Homicidal Ideation: No Goal/Treatment Plan - Goal/Treatment Plan Need for Continued Stay: Remain at risks for inpatient hospitalization, Severe depression anxiety, Discharge may exacerbated symptoms, Severe functional impairment Progress Toward Problem(s) and Goals/Treatment Plan: * c/w current tx and plan * No new weekend labs thus far * Vitals reviewed and noted below: Selected Entries 05/29/17 05/29/17 06:49 15:56 Temperature Oral Source Pulse Rate 69 70 Respiratory 20 Rate Blood Pressure 116/67 97/57 L Estimated Date of D/C: 06/05/17 (will monitor closely)
[2017-05-30] MEDS: Divalproex 250 mg ER (ONCE DAILY formulation) PO SCH (09:28)
[2017-05-30] MEDS: Naproxen 550 mg Tab PO PRN (14:10)
[2017-05-30] MEDS: Divalproex 500 mg ER (ONCE DAILY formulation) PO SCH (21:44)
--- NOTE | 2017-05-31 08:43 | PCM.PYCHPN ---
Psychiatric Progress Note - Psychiatric Progress Note Patient seen today, length of contact: 25 minutes Patient Chief Complaint: "feeling anxious" Problems Identified/Issues Discussed: I reviewed assessment and recent notes. Patient continues to be labile and unpredictable, this behavior is similar to her prior admissions. Can be uncooperative, easily agitated and argumentative when needs aren't met immediately. She requires redirection and limit setting by staff. Thus far keeping to herself on the unit for the most part. Patient remains a little irritable during my visit with her today. Oriented x3. She reports that she is "feeling alright" and denies hallucinations, suicidal thoughts or homicidal thoughts. She is tolerating her medications and denies any new discomfort or pain. Continues to have chronic back pain, unchanged. Indicates she slept well. Thus far there have been no major behavioral issues overnight however she remains unpredictable. Insight and judgment are poor. Diagnostic Results: schizoaffective disorder Medication Change: Yes (decreased seroquel and increased geodon) Medical Record Reviewed: Yes Mental Status Examination - Cognitive Function Orientation: Person, Place, Situation, Time Memory: Intact, Impaired Attention: Poor Concentration: Poor Association: Loose Fund of Knowledge: Poor - Mood Mood: Depressed ("feeling alright"), Anxious - Affect Affect: Flat - Formal Thought Process Formal Thought Process: Delusions, Paranoia, Loosening of associations, Circumstantial - Suicidal Ideation Suicidal Ideation: No - Homicidal Ideation Homicidal Ideation: No Goal/Treatment Plan - Goal/Treatment Plan Need for Continued Stay: Remain at risks for inpatient hospitalization, Severe depression anxiety, Discharge may exacerbated symptoms, Severe functional impairment Progress Toward Problem(s) and Goals/Treatment Plan: * c/w current tx and plan * On 05/31/17, Seroquel was decreased to 50 mg HS and geodon was increased to 40 mg po AMHS * No new weekend labs * Vitals reviewed and noted below: Selected Entries 05/30/17 05/30/17 07:19 16:00 Temperature 97.7 F Pulse Rate 61 55 L Respiratory 20 Rate Blood Pressure 93/57 L 106/61 Estimated Date of D/C: 06/05/17 (will monitor closely)
[2017-05-31] MEDS: Divalproex 250 mg ER (ONCE DAILY formulation) PO SCH (09:26)
[2017-05-31] MEDS: Naproxen 550 mg Tab PO PRN (09:27)
[2017-05-31] MEDS: Divalproex 500 mg ER (ONCE DAILY formulation) PO SCH (21:04)
[2017-06-01] MEDS: Divalproex 250 mg ER (ONCE DAILY formulation) PO SCH ×2 (08:47→21:19)
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
[2017-06-01] MEDS: Naproxen 550 mg Tab PO PRN (21:45)
[2017-06-02] MEDS: Divalproex 250 mg ER (ONCE DAILY formulation) PO SCH ×2 (09:07→21:49)
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
[2017-06-02] MEDS: Naproxen 550 mg Tab PO PRN (21:49)
[2017-06-03 07:29] VITALS: TEMP 98
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
--- NOTE | 2017-06-03 17:56 | PCM.BM ---
<Barbara Clarke - Last Filed: 06/03/17 17:50> Treatment Plan Problems - Problems identified on initial assessmt DEPRESSION Date Initiated: 06/03/17 (mood and affect is calm and improving) Time Initiated: Assessment reference: NA Status: Active PARANOIA Date Initiated: 06/03/17 (less paranoid,behavior in control) Time Initiated: Assessment reference: NA Status: Active SUICIDAL BEHAVIOR Date Initiated: 05/26/17 Assessment reference: NA Status: Active Problem 2 Date Initiated: 06/03/17 Time Initiated: Date resolved: 06/03/17 Assessment reference: NA Treatment assets and liabiliti Patient Assests: adapts well, cooperative, educated, motivated, resourceful, self-reliant, ADL independent, negotiates basic needs, cognitively intact Patient Liabilities: live alone, physical pain, financial problems, poor support system, medical problems - Milieu Protocol Maintain good personal hygiene: daily Encourage regular showers, daily Remind patient to perform daily oral care, daily Assist patient to perform ADL's Maintain personal safety: daily Educate patient to report safety concerns to staff, daily Monitor environment for contraband/sharps Medication safety: Monitor for expected outcome, potential side effects: daily, Assess barriers to learning: daily, Assess readiness for medication education: daily Milieu Narrative: milieu, structure, supportive therapy topamax 50 mg twice a day for most stabilization and losing weight clonazePAM [Klonopin] d/c ativan 2mg po tid for akathesia Zolpidem [Ambien] 10 mg PO HS for insomnia Benztropine [Benztropine Mesylate] 1 mg PO BID or possible EPS symptoms Metoprolol Tartrate [Lopressor] 12.5 mg PO ACD 4 hypertension Divalproex [Depakote ER] 250 mg PO hs, with the plan to d/c tomorrow geodon 40mg po tid with the plan to titrate up QUEtiapine was d/c today medical team evaluation neurology eval was initiated by medical team We will monitor closely Family Contact Family involvement: Famliy/SO not involved Discharge/Continuing Care - Education Needs Education Needs: Patient Medication, Patient Diagnosis/Disease Process, Patient Coping Skills, Patient Anger Management skills, Patient Placement options, Patient Community resources, Patient Activities of Daily Living, Patient Pain, Patient Nutrition, Patient Health Practices/Safety, Patient Personal Hygiene/ Grooming, Patient Aftercare Safety Plan - Discharge Discharge Criteria: Free of Suicidal thoughts, Free of paranoid thoughts, Free of agitation, Normal sleep pattern, Ability to care for self - Treatment Team Participation Patient/Family/SO Statement: milieu, structure, supportive therapy topamax 50 mg twice a day for most stabilization and losing weight clonazePAM [Klonopin] d/c ativan 2mg po tid for akathesia Zolpidem [Ambien] 10 mg PO HS for insomnia Benztropine [Benztropine Mesylate] 1 mg PO BID or possible EPS symptoms Metoprolol Tartrate [Lopressor] 12.5 mg PO ACD 4 hypertension Divalproex [Depakote ER] 250 mg PO hs, with the plan to d/c tomorrow geodon 40mg po tid with the plan to titrate up QUEtiapine was d/c today medical team evaluation neurology eval was initiated by medical team We will monitor closely Treatment Plan Review - Problem DEPRESSION Time Initiated: 23:00 PARANOIA Time Initiated: 23:00 <Gloria Steele - Last Filed: 06/04/17 16:46> - Diagnosis (1) Schizoaffective disorder, bipolar type Status: Acute Interventions: 06/04/17 16:44 much better Psychoeducation/psychotherapy Psychopharmacology/adjustment of medications as needed/ monitoring possible side effects Evaluate pt on daily basis Compliance with medications and follow up appointments Suicide and homicide risk assessment and prevention, coping strategies, safety plan Relapse prevention Reduction of symptoms Improve functional status Possible assertive community treatment as outpatient educated about cognitive behavioral therapy Possible social skill training as outpatient, referral provided
[2017-06-03] MEDS: Naproxen 550 mg Tab PO PRN (21:46)
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
[2017-06-04] MEDS: Naproxen 550 mg Tab PO PRN (18:49)
[2017-06-05 09:39] VITALS: BP 144/97; PULSE 93
--- NOTE | 2017-06-05 11:44 | CP.PCM.CON ---
<Laurie Brar - Last Filed: 06/05/17 11:40> History of Present Illness - History of Present Illness History of Present Illness: 36 y/o female, pmh including htn, psychiatric history of bipolar/paranoid/ psychosis/schizoaffective/depression, seen at bedside after podiatry consultation for painful right pinky toenail. 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 Patient states that they keep growing back and when they get long they cause pain. Patient denies any other pedal complaints at this time. Review of Systems - Constitutional Constitutional: As Per HPI Past Patient History - Infectious Disease Hx of Infectious Diseases: None - Tetanus Immunizations Tetanus Immunization: Unknown - Past Social History Smoking Status: Never Smoked - CARDIAC Hx Cardiac Disorders: Yes Hx Hypertension: Yes - PULMONARY Hx Respiratory Disorders: Yes Hx Asthma: Yes Hx Tuberculosis: No - NEUROLOGICAL Hx Neurological Disorder: No HX Cerebrovascular Accident: No Hx Seizures: No - HEENT Hx HEENT Problems: No - RENAL Hx Chronic Kidney Disease: No Hx Dialysis: No - ENDOCRINE/METABOLIC Hx Endocrine Disorders: No - HEMATOLOGICAL/ONCOLOGICAL Hx Blood Disorders: Yes Hx Anemia: Yes Hx Cancer: No - INTEGUMENTARY Hx Dermatological Problems: No - MUSCULOSKELETAL/RHEUMATOLOGICAL Hx Musculoskeletal Disorders: No - GASTROINTESTINAL Hx Gastrointestinal Disorders: Yes Hx Gastritis: Yes - GENITOURINARY/GYNECOLOGICAL Hx Genitourinary Disorders: No Hx Sexually Transmitted Disorders: No - PSYCHIATRIC Hx Psychophysiologic Disorder: Yes Hx Anxiety: Yes Hx Bipolar Disorder: Yes Hx Substance Use: No - SURGICAL HISTORY Hx Surgeries: No Other/Comment: Skin Graft - ANESTHESIA Hx Anesthesia: Yes Hx Anesthesia Reactions: No Hx Malignant Hyperthermia: No Meds Home Medications: Home Medication List Medication Instructions Recorded Confirmed Type Benztropine [Cogentin] 1 mg PO AMHS #30 tab 06/04/17 Rx Famotidine [Pepcid] 20 mg PO 1000,2200 #14 tab 06/04/17 Rx LORazepam [Ativan] 1 mg PO HS #14 tab 06/04/17 Rx LORazepam [Ativan] 2 mg PO TID #45 tab 06/04/17 Rx Metoprolol Tartrate [Lopressor] 12.5 mg PO DAILY #7 tab 06/04/17 Rx Naproxen [Anaprox DS] 550 mg PO BID PRN #7 tab 06/04/17 Rx Topiramate [Topamax] 25 mg PO 0800,1400 #30 tab 06/04/17 Rx Topiramate [Topamax] 50 mg PO 0800,1400 #30 tab 06/04/17 Rx Ziprasidone [Geodon Cap] 60 mg PO AMHS #30 cap 06/04/17 Rx Zolpidem [Ambien] 10 mg PO HS #14 tab 06/04/17 Rx Allergies/Adverse Reactions: Allergies Allergy/AdvReac Type Severity Reaction Status Date / Time diphenhydramine HCl Allergy ANAPHYLAXIS Verified 05/27/17 00:26 [From Benadryl] FISH Allergy RASH Verified 05/27/17 00:26 fluphenazine [From Prolixin] Allergy ANAPHYLAXIS Verified 05/27/17 00:26 haloperidol [From Haldol] AdvReac SHORTNESS Verified 05/27/17 00:26 OF BREATH haloperidol lactate AdvReac SHORTNESS Verified 05/27/17 00:26 [From Haldol] OF BREATH seafood Allergy RASH Uncoded 05/27/17 00:26 - Medications Medications: Current Medications Acetaminophen (Tylenol 325mg Tab) 650 mg PO Q4H PRN PRN Reason: Pain, Mild (1-3) Last Admin: 06/02/17 21:51 Dose: 650 mg Al Hydrox/Mg Hydrox/Simethicone (Maalox Plus 30 Ml) 30 ml PO DAILY PRN PRN Reason: Upset Stomach Benztropine Mesylate (Cogentin) 1 mg PO AMHS [facility] Last Admin: 06/05/17 09:23 Dose: 1 mg Famotidine (Pepcid) 20 mg PO 1000,2200 [facility] Last Admin: 06/05/17 09:23 Dose: 20 mg Ibuprofen (Motrin Tab) 600 mg PO Q6H PRN PRN Reason: Pain, moderate (4-7) Last Admin: 06/05/17 02:37 Dose: 600 mg Lorazepam (Ativan) 2 mg PO BID [facility] PRN Reason: Protocol Last Admin: 06/05/17 09:24 Dose: 2 mg Lorazepam (Ativan) 3 mg PO HS [facility] PRN Reason: Protocol Last Admin: 06/04/17 21:21 Dose: 3 mg Magnesium Hydroxide (Milk Of Magnesia) 30 ml PO DAILY PRN PRN Reason: Constipation Metoprolol Tartrate (Lopressor) 12.5 mg PO DAILY [facility] Last Admin: 06/05/17 09:24 Dose: 12.5 mg Naproxen (Anaprox Ds) 550 mg PO BID PRN PRN Reason: Pain, severe (8-10) Last Admin: 06/04/17 18:49 Dose: 550 mg Topiramate (Topamax) 75 mg PO 0800,1400 [facility] PRN Reason: Protocol Last Admin: 06/05/17 09:23 Dose: 75 mg Ziprasidone (Geodon Cap) 60 mg PO AMHS [facility] PRN Reason: Protocol Last Admin: 06/05/17 09:24 Dose: 60 mg Zolpidem Tartrate (Ambien) 10 mg PO HS [facility] PRN Reason: Protocol Last Admin: 06/04/17 21:22 Dose: 10 mg Physical Exam - Constitutional Appears: Well, Non-toxic, No Acute Distress - Extremities Exam Additional comments: Vasc: palpable DP and PT pulses, TG wnl, CFT < 3 sec to all digits neuro: grossly intact derm: no edema, no erythema, 5th digital nails are elongated and thickened x 2, nails are trimmed to hygienic length x 8, no open lesions, no acute clinical signs of infection ortho: pain on palpation to 5th digital nails b/l - Neurological Exam Neurological exam: Alert, Oriented x3 - Psychiatric Exam Psychiatric exam: Normal Affect, Normal Mood Results - Vital Signs Recent Vital Signs: Last Vital Signs Temp 98.0 F 06/04/17 07:25 Pulse 93 H 06/05/17 09:24 Resp 20 06/04/17 07:25 BP 144/97 H 06/05/17 09:24 Pulse Ox 96 05/29/17 06:49 - Labs Result Diagrams: 05/26/17 18:16 Assessment & Plan - Assessment and Plan (Free Text) Assessment: 36 y/o female seen at bedside in psych for painful elongated 5th digital toenails bilaterally Plan: patient evaluated and chart reviewed discussed in detail with attending Dr. Lake 5th digital nails trimmed to hygienic length using sterile nippers advised patient to follow up with sericulture teacher as outpatient patient demonsrated understanding of treatment plan thank you for allowing us to participate in the care of this patient. <Bruno Lake - Last Filed: 06/05/17 15:52> Results - Vital Signs Recent Vital Signs: Last Vital Signs Temp 98.0 F 06/04/17 07:25 Pulse 93 H 06/05/17 09:24 Resp 20 06/04/17 07:25 BP 144/97 H 06/05/17 09:24 Pulse Ox 96 05/29/17 06:49 - Labs Result Diagrams: 05/26/17 18:16 Attending/Attestation - Attestation I have personally seen and examined this patient.: Yes I have fully participated in the care of the patient.: Yes
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
== END 2017-06-05 14:18 | disposition home or self-care (01) | DRG 430 ==
LOC: ED 17:26 → ERH 20:53 → PSYC 21:39
PROVIDERS: ADMIT Psychiatry & Neurology Psychiatry; ATTEND Psychiatry & Neurology Psychiatry
PROC: GZ3ZZZZ Medication Management (ICD-10-PCS; principal; 2017-05-26)
PROC: 0HBRXZZ Excision of Toe Nail, External Approach (ICD-10-PCS; 2017-06-05)
DX: F25.0 Schizoaffective disorder, bipolar type (principal); F22 Delusional disorders; I10 Essential (primary) hypertension; R51 Headache; G47.00 Insomnia, unspecified; F41.9 Anxiety disorder, unspecified; G89.29 Other chronic pain; M54.9 Dorsalgia, unspecified; E66.9 Obesity, unspecified; Z68.38 Body mass index [BMI] 38.0-38.9, adult; Z91.14 Patient's other noncompliance with medication regimen; M79.674 Pain in right toe(s); Z91.410 Personal history of adult physical and sexual abuse

== ENCOUNTER 2017-06-09 00:35 | Inpatient (IN) | payer MEDICAID, OTHER ==
[2017-06-09 00:51] VITALS: BMI 363.2
--- NOTE | 2017-06-09 01:09 | ED PDOC ---
Arrival/HPI - General Historian: Patient - History of Present Illness Time/Duration: < week (few days ) Activities at Onset: Light - General Chief Complaint: Psychiatric Evaluation Time Seen by Provider: 06/09/17 00:46 - History of Present Illness Narrative History of Present Illness (Text): 06/09/17 01:11 Katherine Campbell is a 36 year old female whose past medical history includes hypertension, bipolar disorder, and schizoaffective disorder, and depression, presents to the emergency department complaining of visual and auditory hallucinations. States symptoms presented after recent changes in medications by prior to her discharge from [facility] behavior health unit 3 days prior. Denies any suicidal or homicidal ideations. Denies any somatic complaints. ( Baldo Tai) Past Medical History - Provider Review Nursing Documentation Reviewed: Yes - Infectious Disease Hx of Infectious Diseases: None - Tetanus Immunization Tetanus Immunization: Unknown - Reproductive Menopause: No - Cardiac Hx Cardiac Disorders: Yes Hx Hypertension: Yes - Pulmonary Hx Respiratory Disorders: Yes Hx Asthma: Yes Hx Tuberculosis: No - Neurological Hx Neurological Disorder: No HX Cerebrovascular Accident: No Hx Seizures: No - HEENT Hx HEENT Disorder: No - Renal Hx Renal Disorder: No Hx Dialysis: No - Endocrine/Metabolic Hx Endocrine Disorders: No - Hematological/Oncological Hx Blood Disorders: Yes Hx Anemia: Yes Hx Cancer: No - Integumentary Hx Dermatological Disorder: No - Musculoskeletal/Rheumatological Hx Musculoskeletal Disorders: No - Gastrointestinal Hx Gastrointestinal Disorders: Yes Hx Gastritis: Yes - Genitourinary/Gynecological Hx Genitourinary Disorders: No Hx Sexually Transmitted Diseases: No - Psychiatric Hx Psychophysiologic Disorder: Yes Hx Anxiety: Yes Hx Bipolar Disorder: Yes Hx Substance Use: No - Surgical History Other/Comment: Skin Graft - Anesthesia Hx Anesthesia: Yes Hx Anesthesia Reactions: No Hx Malignant Hyperthermia: No - Suicidal Assessment Feels Threatened In Home Enviroment: No Family/Social History - Physician Review Nursing Documentation Reviewed: Yes Family/Social History: No Known Family HX Smoking Status: Never Smoked Hx Alcohol Use: No Hx Substance Use: No Hx Substance Use Treatment: No Allergies/Home Meds Allergies/Adverse Reactions: Allergies diphenhydramine HCl [From Benadryl] Allergy (Verified 06/09/17 00:56) ANAPHYLAXIS FISH Allergy (Verified 06/09/17 00:56) RASH fluphenazine [From Prolixin] Allergy (Verified 06/09/17 00:56) ANAPHYLAXIS haloperidol [From Haldol] Adverse Reaction (Verified 06/09/17 00:56) SHORTNESS OF BREATH haloperidol lactate [From Haldol] Adverse Reaction (Verified 06/09/17 00:56) SHORTNESS OF BREATH seafood Allergy (Uncoded 06/09/17 00:56) RASH Home Medications: Home Meds Medication Instructions Recorded Confirmed Clonazepam [Klonopin] 0.5 mg PO TID 06/09/17 06/09/17 Review of Systems - Physician Review All systems were reviewed & negative as marked: Yes - Review of Systems Constitutional: Normal. absent: Fatigue, Fevers Respiratory: Normal. absent: SOB, Cough Cardiovascular: Normal. absent: Palpitations Gastrointestinal: Normal. absent: Abdominal Pain, Diarrhea, Nausea, Vomiting Neurological: Normal. absent: Headache, Dizziness Psychiatric: Other (auditory and visual hallucination ) Physical Exam Vital Signs Reviewed: Yes Temperature: Afebrile Blood Pressure: Normal Pulse: Tachycardic Respiratory Rate: Normal Appearance: Positive for: Well-Appearing, Non-Toxic, Comfortable Pain Distress: None Mental Status: Positive for: Alert and Oriented X 3 - Systems Exam Head: Present: Atraumatic, Normocephalic Pupils: Present: PERRL Conjunctiva: Present: Normal Mouth: Present: Moist Mucous Membranes Respiratory/Chest: Present: Clear to Auscultation, Good Air Exchange. No: Respiratory Distress, Accessory Muscle Use Cardiovascular: Present: Regular Rate and Rhythm, Normal S1, S2. No: Murmurs Upper Extremity: Present: Normal Inspection. No: Cyanosis, Edema Lower Extremity: Present: Normal Inspection. No: Edema Neurological: Present: GCS=15, CN II-XII Intact, Speech Normal Skin: Present: Warm, Dry, Normal Color. No: Rashes Psychiatric: Present: Alert, Oriented x 3, Hallucinations Medical Decision Making - Transfer of Care Patient signed out to Dr:: Behzad Other: [facility] [place] ED Course and Treatment: 06/09/17 01:15 Impression: A 36 year old female who presents to the emergency department complaining of visual and auditory hallucinations. Plan: -- Labs -- Alcohol level -- Drug Screen -- Reassess and disposition Progress Notes: 06/09/17 04:00 Patient was evaluated by [facility]. Patient voluntarily wants to be admitted to the Behavior health unit, but requests for [facility] [place]. 06/09/17 06:00 EKG interpreted by me: NSR @ 65 bpm. Non-specific T wave changes 06/09/17 06:02 Chest X-ray interpreted by me: No acute process. (Baldo Tai) 06/09/17 07:10 Patient signed out by Dr. Tai to [facility] [place]. Prior to sign out, patient goes through [facility] screening. 06/09/17 07:[address] Castro, whom states patient voluntarily signs up to be admitted to psychiatry. (Erasmo Wen) - Lab Interpretations Lab Results: 06/09/17 01:40 06/09/17 01:40 Lab Results 06/09/17 04:00: Urine HCG, Qual Negative 06/09/17 04:00: Urine Color Yellow, Urine Appearance Clear, Urine pH 6.0, Ur Specific [place] <= 1.005, Urine Protein Negative, Urine Glucose (UA) Negative, Urine Ketones Negative, Urine Blood Negative, Urine Nitrate Negative, Urine Bilirubin Negative, Urine Urobilinogen 0.2, Ur Leukocyte Esterase Negative 06/09/17 01:55: Urine Opiates Screen Negative, Urine Methadone Screen Negative, Ur Barbiturates Screen Negative, Ur Phencyclidine Scrn Negative, Ur Amphetamines Screen Negative, U Benzodiazepines Scrn Negative, U Oth Cocaine Metabols Negative, U Cannabinoids Screen Negative 06/09/17 01:40: Alcohol, Quantitative < 10 06/09/17 01:40: Sodium 138, Potassium 3.4 L, Chloride 107, Carbon Dioxide 21, Anion Gap 13, BUN 19, Creatinine 0.7, Est GFR ( Amer) > 60, Est GFR (Non- Af Amer) > 60, Random Glucose 92, Calcium 8.7, Total Bilirubin 0.4, AST 34, ALT 34, Alkaline Phosphatase 91, Total Protein 6.9, Albumin 3.9, Globulin 3.0, Albumin/Globulin Ratio 1.3 06/09/17 01:40: WBC 10.9, RBC 4.07, Hgb 11.2 L, Hct 33.1 L, MCV 81.3, MCH 27.5, MCHC 33.8, RDW 13.4, Plt Count 262, MPV 7.9, Gran % 48.7 L, Lymph % (Auto) 32.8 , [place] % (Auto) 10.8 H, Eos % (Auto) 7.1 H, Baso % (Auto) 0.6, Gran # 5.30, Lymph # 3.6 H, [place] # 1.2 H, Eos # 0.8 H, Baso # 0.07 - RAD Interpretation Radiology Orders: 06/09/17 03:52 CHEST PORTABLE [RAD] Stat - Medication Orders Current Medication Orders: Discontinued Medications Acetaminophen (Tylenol 325mg Tab) 650 mg PO STAT STA Stop: 06/09/17 02:55 Last Admin: 06/09/17 03:04 Dose: 650 mg - Scribe Statement The provider has reviewed the documentation as recorded by the Scribe - Scribe Statement Troy Triplett (Baldo Tai) Provider Attestation: Provider Scribe Attestation: All medical record entries made by the Scribe were at my direction and personally dictated by me. I have reviewed the chart and agree that the record accurately reflects my personal performance of the history, physical exam, medical decision making, and the department course for this patient. I have also personally directed, reviewed, and agree with the discharge instructions and disposition. (Baldo Tai) Disposition/Present on Arrival - Present on Arrival Any Indicators Present on Arrival: No History of DVT/PE: No History of Uncontrolled Diabetes: No Urinary Catheter: No History of Decub. Ulcer: No History Surgical Site Infection Following: None - Disposition Have Diagnosis and Disposition been Completed?: No Disposition Time: 07:00 - Disposition Diagnosis: Schizoaffective disorder Disposition: HOSPITALIZED Patient Problems: Current Active Problems Problem Status Onset Schizoaffective disorder Acute Condition: STABLE
[2017-06-09 02:32] LABS: BASO # 0.07 K/mm3 (0.0-2.0); BASO % 0.6 % (0.0-3.0); EOS # 0.8 (0.0-0.7); EOS % 7.1 % (1.5-5.0); GRAN # 5.3 (1.4-6.5); GRAN % 48.7 % (50.0-68.0); HEMATOCRIT 33.1 % (36.0-48.0); LYMPH # 3.6 (1.2-3.4); LYMPH % 32.8 % (22.0-35.0); MEAN CELL VOLUME 81.3 fl (80.0-105.0); MEAN CORPUSCULAR HEMOGLOBIN 27.5 pg (25.0-35.0); MEAN CORPUSCULAR HGB CONC 33.8 g/dl (31.0-37.0); MEAN PLATELET VOLUME 7.9 fl (7.0-11.0); MONO # 1.2 (0.1-0.6); MONO % 10.8 % (1.0-6.0); RED CELL DISTRIBUTION WIDTH 13.4 % (11.5-14.5); WHITE BLOOD COUNT 10.9 10^3/ul (4.5-11.0)
[2017-06-09 02:43] LABS: ALB/GLOB RATIO 1.3 (1.1-1.8); ALKALINE PHOSPHATASE 91 U/L (38-126); ALT/SGPT 34 U/L (7-56); AST/SGOT 34 U/L (14-36); BILIRUBIN,TOTAL 0.4 mg/dL (0.2-1.3); BLOOD UREA NITROGEN 19 mg/dL (7-21); CALCIUM 8.7 mg/dL (8.4-10.5); CARBON DIOXIDE 21 mmol/L (21-33); CHLORIDE 107 mmol/L (95-110); GFR AFRICAN-AMERICAN > 60; GLUCOSE,RANDOM 92 mg/dL (70-110); POTASSIUM 3.4 mmol/L (3.6-5.0); SODIUM 138 mmol/L (132-148); TOTAL PROTEIN 6.9 g/dL (5.8-8.3)
[2017-06-09 04:40] LABS: URINE BILIRUBIN NEGATIVE (NEGATIVE); URINE BLOOD NEGATIVE (NEGATIVE); URINE GLUCOSE (UA) NEGATIVE (NEGATIVE); URINE KETONE NEGATIVE (NEGATIVE); URINE LEUKOCYTE ESTERASE NEGATIVE Leu/uL (NEGATIVE); URINE PROTEIN NEGATIVE mg/dL (<30 mg/dL); URINE UROBILINOGEN 0.2 E.U./dL (<1 E.U./dL)
[2017-06-09 04:52] LABS: URINE APPEARANCE CLEAR (CLEAR); URINE COLOR YELLOW (YELLOW)
--- NOTE | 2017-06-09 08:33 | RAD ---
HISTORY: medical clearance COMPARISON: 05/14/2017 FINDINGS: LUNGS: No active pulmonary disease. PLEURA: No significant pleural effusion identified, no pneumothorax apparent. CARDIOVASCULAR: Normal. OSSEOUS STRUCTURES: No significant abnormalities. VISUALIZED UPPER ABDOMEN: Normal. OTHER FINDINGS: None. IMPRESSION: No active disease.
[2017-06-09 09:13] LABS: CHOLESTEROL 197 mg/dL (130-200)
[2017-06-09 09:30] LABS: FREE T4 1.18 ng/dL (0.78-2.19)
--- NOTE | 2017-06-09 09:38 | PCM.BM ---
Treatment Plan Problems - Problems identified on initial assessmt auditory Date Initiated: 06/09/17 Time Initiated: :30 Assessment reference: NA Status: Active Priority: 1 visual Date Initiated: 06/09/17 Time Initiated: Assessment reference: NA Status: Active Priority: 2 medication non adherence Date Initiated: 06/09/17 Time Initiated: :30 Assessment reference: NA Status: Active Priority: 3 altered thought process Date Initiated: 06/09/17 Time Initiated: Assessment reference: NA Status: Active Priority: 4 Treatment assets and liabiliti Patient Assests: adapts well, cooperative, educated, motivated, resourceful, self-reliant, ADL independent, negotiates basic needs, cognitively intact Patient Liabilities: live alone, poor support system, auditory impairment, visual impairment - Milieu Protocol Maintain good personal hygiene: daily Encourage regular showers, daily Remind patient to perform daily oral care, daily Assist patient to perform ADL's Conduct patient checks and document Observation sheet: Q15 minutes Maintain personal safety: every shift Educate patient to report safety concerns to staff, every shift Monitor environment for contraband/sharps Medication safety: Monitor for expected outcome, potential side effects: every shift, Assess barriers to learning: every shift, Assess readiness for medication education: every shift Milieu Narrative: milieu, structure, supportive therapy topamax 50 mg twice a day for most stabilization and losing weight ativan 2mg po OLIVIA in 3 mg at the nighttime for akathesia Zolpidem [Ambien] 10 mg PO HS for insomnia Benztropine [Benztropine Mesylate] 1 mg PO BID or possible EPS symptoms Metoprolol Tartrate [Lopressor] 12.5 mg PO ACD 4 hypertension Divalproex [Depakote ER] dC today geodon 60 mg twice a day QUEtiapine was d/c today medical team evaluation neurology eval was initiated by medical team We will monitor closely Family Contact Family involvement: Family/SO is involved - Goals for Treatment Patient goals for treatment: medication teaching Discharge/Continuing Care - Education Needs Education Needs: Patient Medication, Patient Diagnosis/Disease Process, Patient Coping Skills - Discharge Discharge Criteria: Tolerates medication w/o severe side effects, Free of Suicidal thoughts, Free of Homicidal thoughts, Free of paranoid thoughts, Reduction of target symptoms - Treatment Team Participation Patient/Family/SO Statement: milieu, structure, supportive therapy topamax 50 mg twice a day for most stabilization and losing weight ativan 2mg po OLIVIA in 3 mg at the nighttime for akathesia Zolpidem [Ambien] 10 mg PO HS for insomnia Benztropine [Benztropine Mesylate] 1 mg PO BID or possible EPS symptoms Metoprolol Tartrate [Lopressor] 12.5 mg PO ACD 4 hypertension Divalproex [Depakote ER] dC today geodon 60 mg twice a day QUEtiapine was d/c today medical team evaluation neurology eval was initiated by medical team We will monitor closely
[2017-06-09 09:44] LABS: THYROID STIMULATING HORMONE 4.66 mIU/mL (0.46-4.68)
[2017-06-09] MEDS: Naproxen 550 mg Tab PO PRN ×2 (12:07→21:56)
--- NOTE | 2017-06-09 12:59 | CARD ---
APPROVED REPORT EKG Measurement Heart [id number] [id number] <Conclusion> Normal sinus rhythm Right axis deviation T wave abnormality, consider inferior ischemia Abnormal ECG
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
--- NOTE | 2017-06-10 03:13 | CON ---
DATE: CHIEF COMPLAINT: High blood pressure. HISTORY OF PRESENT ILLNESS: Ms. Katherine Campbell is 36 years old female with past medical history of hypertension, asthma, bipolar, schizoaffective disorder and depression, came to the emergency room complaining of visual and auditory hallucination. Admitted to psych department and medical consult called to control blood pressure. According to the patient, she has history of asthma also. PAST MEDICAL HISTORY: Hypertension, asthma, anemia as per patient, gastritis and anxiety. FAMILY HISTORY: Father and mother are noncontributory. HABITS: Never smoked, no drugs, no ethanol. ALLERGIES: THE PATIENT IS ALLERGIC WITH BENADRYL, FISH, PROLIXIN, HALDOL, SEA FOODS. HOME MEDICATIONS: Reviewed by me. REVIEW OF SYSTEMS: The patient examined on the bedside in the fifth floor, complaining about anxiety and depression. No nausea, vomiting or diarrhea. No hematuria or hematochezia. No headache. No dizziness. PHYSICAL EXAMINATION: VITAL SIGNS: Temperature 98, pulse 77, blood pressure 144/60, and respiratory rate 18. HEENT: Head is normocephalic and atraumatic. Eyes, PERRLA. Extraocular muscles intact. Conjunctivae clear. Nose patent. Mucous membranes moist. NECK: Supple. No carotid bruits, JVD, or thyromegaly. CHEST: Bilateral symmetrical. HEART: S1 and S2 positive. LUNGS: Clear to auscultation. ABDOMEN: Soft. Bowel sounds present. No organomegaly. EXTREMITIES: No edema. No cyanosis. NEUROLOGIC: The patient is awake and alert. Moving all 4 extremities. No focal deficits. LABORATORY DATA: White blood cell 10.9, hemoglobin 11.2, hematocrit 33.1, and platelets 252. Sodium 138, potassium 3.4, BUN 19 and creatinine 0.7. LDL cholesterol 139. ASSESSMENT AND PLAN: Ms. Katherine Campbell is 36 years old lady with anemia and hypokalemia, replaced. Drug screening is negative. Has history of hypertension, very well control; history of gastritis; asthma; nerve dyspepsia; anxiety and bipolar. The patient is getting treatment in psych department with Dr. Gloria Steele. Getting Ambien for sleep. Naproxen for pain and headaches. Getting Geodon, Klonopin and Tylenol. Gastrointestinal and deep venous thrombosis prophylaxis. Repeat labs. We will follow up. Lexis Pulido MD [facility] # [id number]
[2017-06-10] MEDS: Naproxen 550 mg Tab PO PRN (11:11)
[2017-06-10] MEDS: Benzocaine/Menthol (Cepacol) Lozenge MT PRN (15:03)
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
--- NOTE | 2017-06-11 02:51 | PN ---
DATE: SUBJECTIVE: The patient is 36 years old female. The patient seen and examined on the bedside, looking comfortable. Actually, today she was in front of her Psych team, discussion done with Dr. Gloria Steele about this patient's condition. According to her, she is having shortness of breath, but I did her examination and actually she is anxious that why she is feeling, she has shortness of breath. PHYSICAL EXAMINATION: VITAL SIGNS: Temperature 98.1, pulse 69, blood pressure 129/61 and respiratory rate 18. HEENT: Head is normocephalic and atraumatic. Eyes, PERRLA. Extraocular muscles intact. Conjunctivae clear. Nose patent. NECK: Supple. No carotid bruits, JVD, or thyromegaly. CHEST: Bilateral symmetrical. HEART: S1 and S2 positive. LUNGS: Clear to auscultation. ABDOMEN: Soft. Bowel sounds present. No organomegaly. EXTREMITIES: No edema. No cyanosis. NEUROLOGIC: The patient is awake and alert. Moving all 4 extremities. No focal deficits. MEDICATIONS: Ambien, naproxen, Cepacol lozenges, Cogentin, Geodon, Klonopin, Cozaar, Lopressor, Pepcid and Topamax. LABORATORY DATA: We do not have recent labs today, but I reviewed old labs. ASSESSMENT AND PLAN: Ms. Katherine Campbell is 36 years old with history of hypertension as per the patient, but today blood pressure is very good 129/61, history of asthma as per the patient, but right now she is not wheezing, history of anemia, hypokalemia, stable gastritis, dyspepsia, anxiety, and bipolar. The patient is getting treatment by Dr. Gloria Steele. Getting Ambien for sleep. Naproxen for pain in the body and headache. Getting Klonopin and Tylenol also. Gastrointestinal and deep venous thrombosis prophylaxis. Discussion done with Dr. Gloria Steele and team. We will follow up. Lexis Pulido MD
[2017-06-11 06:51] VITALS: O2SAT 97
[2017-06-11] MEDS: Naproxen 550 mg Tab PO PRN ×2 (09:14→21:26)
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
[2017-06-11] MEDS ORDERED: Magnesium Hydroxide Susp 30 ml UD PO PRN (21:34)
[2017-06-11] MEDS: Alum-Mag Hydrox-Simethicone Susp (30 mL) PO PRN (22:21)
--- NOTE | 2017-06-12 03:30 | PN ---
DATE: 06/11/2017 SUBJECTIVE: The patient is 36 years old female. The patient was seen and examined on the bedside, looking comfortable. No nausea, vomiting or diarrhea. No hematemesis or hematochezia. No hematuria. No leg swelling of the leg. No chest pain. No palpitations. PHYSICAL EXAMINATION: GENERAL: The patient was seen and examined on the bedside on 06/11/2017. VITAL SIGNS: Temperature 98.2, pulse 97, blood pressure 119/79. HEENT: Head, normocephalic and atraumatic. Eyes; PERRLA. Extraocular muscles intact. Conjunctivae clear. Nose patent. Mucous membrane moist. NECK: Supple. No carotid bruits, JVD, or thyromegaly. CHEST: Bilaterally symmetrical. HEART: S1 and S2 positive. LUNGS: Clear to auscultation. ABDOMEN: Soft. Bowel sounds are positive. No organomegaly. EXTREMITIES: No edema. No cyanosis. NEUROLOGICAL: The patient is awake, alert, moving all 4 extremities. No focal deficit. MEDICATIONS: Ambien, naproxen, Ativan, Cepacol, Cogentin, Geodon, clonazepam, Lopressor, Maalox, Topamax,and Tylenol. LABORATORY DATA: We do not have recent labs today, but I reviewed old labs. ASSESSMENT AND PLAN: Ms. Katherine Campbell is 36 years old lady with anemia; history of hypokalemia, was replaced; hypercholesterolemia; has a long history of schizoaffective disorders and multiple psychiatric admissions in the past; history of depression and anxiety, getting treatment from Dr. Gloria Steele; history of asthma as per the patient; gastritis; dyspnea. Gastrointestinal and deep venous thrombosis prophylaxis. Repeat labs. We will follow up. Lexis Pulido MD
[2017-06-12 07:05] VITALS: RESP 20
[2017-06-12] MEDS: Naproxen 550 mg Tab PO PRN (09:25)
[2017-06-12] MEDS: Fluticasone Nasal 50 mcg/Spray NS SCH (11:52)
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
[2017-06-13] MEDS ORDERED: QUEtiapine 50 mg XR Tab PO SCH (08:00)
--- NOTE | 2017-06-13 08:51 | PCM.PYCHPN ---
Psychiatric Progress Note - Psychiatric Progress Note Patient seen today, length of contact: 25 min Problems Identified/Issues Discussed: I reviewed assessment and recent notes. Patient is known to me from her multiple prior admissions. She continues to be labile and unpredictable, this behavior is similar to her prior admissions. Can be uncooperative, easily agitated and argumentative when needs aren't met immediately. She requires redirection and limit setting by staff. Last night she needed to be medicated because she demanded geodon in addition to seroquel. Patient remains irritable during my visit with her today. Oriented x3. During interview patient indicated that she would continue to take seroquel but would like to be "weaned off geodon " to prevent withdrawal symptoms. Patient reports "feeling alright" and continues to complain of chronic back pain. She denies hallucinations, suicidal thoughts or homicidal thoughts. Can be repetitive with her questioning despite responses provided. Thus far there have been no major behavioral issues since her outburst last night however she remains unpredictable. Insight and judgment are poor. Diagnostic Results: Schizoaffective bipolar type Borderline personality disorder Medication Change: No (Cross titrating geodon to seroquel ) Medical Record Reviewed: Yes Mental Status Examination - Cognitive Function Orientation: Person, Place, Situation Memory: Intact Attention: Poor Concentration: Poor Association: Loose Fund of Knowledge: Poor - Mood Mood: Depressed, Anxious - Affect Affect: Constricted (irritable, angry), Other (labile) - Formal Thought Process Formal Thought Process: Hallucinations (denies), Delusions, Paranoia, Loosening of associations, Circumstantial - Suicidal Ideation Suicidal Ideation: No - Homicidal Ideation Homicidal Ideation: No Goal/Treatment Plan - Goal/Treatment Plan Need for Continued Stay: Remain at risks for inpatient hospitalization, Severe depression anxiety, Discharge may exacerbated symptoms, Failed transitioning, Severe functional impairment Progress Toward Problem(s) and Goals/Treatment Plan: * c/w current tx and plan * Restart geodon 40 mg AMHS and taper as Seroquel is titrated from 50 mg AMHS * No new weekend labs thus far * Vitals reviewed and noted below: Selected Entries 06/12/17 06/12/17 06/12/17 07:04 09:17 17:13 Temperature 98.2 F Pulse Rate 65 65 102 H Respiratory 20 Rate Blood Pressure 129/60 129/60 106/72 Estimated Date of D/C: 06/16/17 (e will monitor closely)
[2017-06-13] MEDS: Fluticasone Nasal 50 mcg/Spray NS SCH (09:44)
[2017-06-13] MEDS: Naproxen 550 mg Tab PO PRN (09:53)
--- NOTE | 2017-06-13 20:35 | PN ---
SUBJECTIVE: The patient is a 36-year-old female. The patient was seen and examined on the bedside, sitting with the group, just still feels little bit anxious and otherwise, no nausea, vomiting or diarrhea. No hematuria. No hematochezia. No swelling of the legs. No chest pain. No palpitation. No headache. No dizziness. PHYSICAL EXAMINATION VITAL SIGNS: Temperature 97.9, pulse 104, blood pressure 123/97, respiratory rate 20. HEENT: Head is normocephalic and atraumatic. Eyes: PERRLA. Extraocular muscles intact. Conjunctivae clear. Nose patent. Mucous membrane moist. NECK: Supple. No carotid bruits, No JVD or thyromegaly. CHEST: Bilaterally symmetrical. HEART: S1 and S2 positive. LUNGS: Clear to auscultation. ABDOMEN: Soft. Bowel sounds positive. No organomegaly. EXTREMITIES: No edema. No cyanosis. NEUROLOGICALLY: The patient is awake, alert. Moving all 4 extremities. No focal deficits. MEDICATIONS: Seroquel, Topamax, Tylenol. LABORATORY DATA: We do not have recent lab today, but I reviewed old labs. ASSESSMENT AND PLAN: The patient is a 36-year-old lady, is admitted with psych problem in psych floor; history of anemia; hypokalemia, replaced; hypertension; gastritis; asthma; dyspepsia; anxiety and bipolar. The patient is getting treatment from Dr. Gloria Steele. Continue present treatment. Repeat labs. We will follow. Lexis Pulido MD
--- NOTE | 2017-06-13 21:37 | PN ---
DATE: 06/12/2017 SUBJECTIVE: The patient is a 36-year-old female. The patient was seen and examined on the bedside on 06/12/2017. No nausea, vomiting, or diarrhea. No hematuria. No hematochezia. No headache. No dizziness. No chest pain. No palpitation. PHYSICAL EXAMINATION: VITAL SIGNS: Temperature 98.2, pulse 65, blood pressure 129/60, respiratory rate 20. HEENT: Head normocephalic and atraumatic. Eyes: PERRLA. Extraocular muscles are intact. Conjunctiva clear. Nose patent. Mucous membrane moist. NECK: Supple. No carotid bruits, JVD, or thyromegaly. CHEST: Bilaterally symmetrical. HEART: S1 and S2 positive. LUNGS: Clear to auscultation. ABDOMEN: Soft. Bowel sounds are positive. No organomegaly. EXTREMITIES: No edema. No cyanosis. NEUROLOGICAL: The patient is awake, alert, moving all 4 extremities. No focal deficit. MEDICATIONS: Ambien, naproxen, Ativan, Cepacol lozenges, Claritin, Cogentin, Flonase, Lopressor, Topamax. LABORATORY DATA: White blood cell 10.9, hemoglobin 11.2, hematocrit 33.1, platelets 262. ASSESSMENT AND PLAN: The patient is a 36 years old female with multiple medical problems, is admitted on the psych department, history of hypertension, asthma, history of electrolyte imbalance, gastritis, dyspepsia, anxiety, bipolar, getting treatment from Dr. Castro. We will continue present treatment. Gastrointestinal and deep venous thrombosis prophylaxis, repeat labs. We will follow up. Lexis Pulido MD
[2017-06-14] MEDS: Fluticasone Nasal 50 mcg/Spray NS SCH (08:56)
[2017-06-14] MEDS: Naproxen 550 mg Tab PO PRN (09:06)
--- NOTE | 2017-06-14 09:13 | PCM.PYCHPN ---
Psychiatric Progress Note - Psychiatric Progress Note Patient seen today, length of contact: 25 min Problems Identified/Issues Discussed: I reviewed recent notes. She continues to be labile and unpredictable, this behavior is similar to her prior admissions. She is uncooperative, easily agitated and argumentative when needs aren't met immediately. Self-escalates easily. Patient requires a lot of redirection and limit setting by staff. She remains paranoid and irritable. During interview she reported belief that "everyone is against me". Expressed that she is skipped over in groups and accuses this provider of also skipping over her. She denies hallucinations, suicidal thoughts or homicidal thoughts. Can be repetitive with her questioning despite responses provided. Speech is overproductive. Insight and judgment are poor. Diagnostic Results: Schizoaffective bipolar type Borderline personality disorder Medication Change: No (Cross titrating geodon to seroquel, changed klonopin to ativan ) Medical Record Reviewed: Yes Mental Status Examination - Cognitive Function Orientation: Person, Place, Situation Memory: Intact Attention: Poor Concentration: Poor Association: Loose Fund of Knowledge: Poor - Mood Mood: Depressed, Anxious - Affect Affect: Constricted (irritable, angry), Other (labile) - Formal Thought Process Formal Thought Process: Hallucinations (denied all weekend), Delusions, Paranoia , Loosening of associations, Circumstantial - Suicidal Ideation Suicidal Ideation: No - Homicidal Ideation Homicidal Ideation: No Goal/Treatment Plan - Goal/Treatment Plan Need for Continued Stay: Remain at risks for inpatient hospitalization, Severe depression anxiety, Discharge may exacerbated symptoms, Failed transitioning, Severe functional impairment Progress Toward Problem(s) and Goals/Treatment Plan: * c/w current tx and plan * Continue to taper geodon 40 mg AMHS to 20 mg AMHS as Seroquel is titrated from 50 mg AMHS to 50/50/100 today * klonopin 1 mg po bid, 2 mg HS switched to Ativan 1 mg po bid and 2 mg HS per patient preference. * No new weekend labs * Vitals reviewed and noted below: Selected Entries 06/13/17 06/13/17 06/13/17 07:46 09:43 11:00 Temperature 97.9 F Pulse Rate 77 60 104 H Respiratory 20 20 Rate Blood Pressure 88/54 L 126/97 H 06/13/17 06/13/17 16:00 17:08 Temperature Pulse Rate 115 H 115 H Respiratory Rate Blood Pressure 132/92 H 132/92 H Estimated Date of D/C: 06/16/17 (e will monitor closely)
[2017-06-14 09:19] LABS: HEMATOCRIT 39.6 % (36.0-48.0); MEAN CELL VOLUME 83.2 fl (80.0-105.0); MEAN CORPUSCULAR HEMOGLOBIN 27.7 pg (25.0-35.0); MEAN CORPUSCULAR HGB CONC 33.3 g/dl (31.0-37.0); MEAN PLATELET VOLUME 8.4 fl (7.0-11.0); RED CELL DISTRIBUTION WIDTH 13.9 % (11.5-14.5); WHITE BLOOD COUNT 11.7 10^3/ul (4.5-11.0)
[2017-06-14 09:37] LABS: BLOOD UREA NITROGEN 16 mg/dL (7-21); CALCIUM 9.1 mg/dL (8.4-10.5); CARBON DIOXIDE 20 mmol/L (21-33); CHLORIDE 106 mmol/L (98-107); CHOLESTEROL 189 mg/dL (130-200); GFR AFRICAN-AMERICAN > 60; GLUCOSE,RANDOM 103 mg/dL (70-110); SODIUM 142 mmol/L (132-148)
[2017-06-14 10:12] LABS: IRON 62 ug/dL (45-180)
[2017-06-14] MEDS: Alum-Mag Hydrox-Simethicone Susp (30 mL) PO PRN (14:34)
[2017-06-14 18:20] LABS: FOLATE > 20.0 ng/mL
--- NOTE | 2017-06-14 21:43 | PN ---
DATE: SUBJECTIVE: The patient is a 36 years old female. The patient seen and examined on the bedside, looking comfortable, sleepy, but arousable. Moving all four extremities. No focal deficit. No chest pain. No headache. No nausea. No vomiting. Feels a little bit anxious. PHYSICAL EXAMINATION VITAL SIGNS: Temperature 98.3, pulse 69, blood pressure 104/62, respiratory rate 20. HEENT: Head, normocephalic and atraumatic. Eyes; PERRLA. Extraocular muscles intact. Conjunctivae clear. Nose patent. NECK: Supple. No carotid bruits, JVD, or thyromegaly. CHEST: Bilaterally symmetrical. HEART: S1 and S2 positive. LUNGS: Clear to auscultation. ABDOMEN: Soft. Bowel sounds are positive. No organomegaly. EXTREMITIES: No edema. No cyanosis. NEUROLOGICAL: The patient is awake, alert, moving all four extremities. No focal deficit. MEDICATIONS: Ambien, naproxen, Ativan, Cepacol , Cogentin, Flonase, Geodon, Lopressor, Maalox, Seroquel, Topamax,and Tylenol. LABORATORY DATA: White blood cell is 11.7, hemoglobin 13.2, hematocrit 39.6, and platelet 317. Sodium 142, potassium 4.0, BUN 16, creatinine 0.6, glucose 103, iron saturation 18%, triglycerides 154, LDL 139. ASSESSMENT AND PLAN: Ms. Adrian Murphy is 36 years old female with iron deficiency, hypertriglyceridemia, hypercholesterolemia, leukocytosis, past history of hypertension, asthma, gastritis, dyspepsia, anxiety, and bipolar. The patient's anxiety is better, but still a little bit anxious, not getting Ativan. I appreciate Dr. Castro's input. Repeat labs. We will follow up. Lexis Pulido MD MTDD
[2017-06-15] MEDS: Fluticasone Nasal 50 mcg/Spray NS SCH (08:29)
[2017-06-15] MEDS: Naproxen 550 mg Tab PO PRN (09:22)
[2017-06-15] MEDS: Pantoprazole 40 mg EC Tab PO SCH (10:30)
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
[2017-06-15] MEDS: Benzocaine/Menthol (Cepacol) Lozenge MT PRN (21:09)
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
[2017-06-16] MEDS: Fluticasone Nasal 50 mcg/Spray NS SCH (09:23)
[2017-06-16] MEDS: Pantoprazole 40 mg EC Tab PO SCH (09:24)
[2017-06-16] MEDS: Naproxen 550 mg Tab PO PRN (09:26)
[2017-06-16] MEDS ORDERED: DiphenhydrAMINE 50 mg/ml Inj ONE (10:29)
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
--- NOTE | 2017-06-17 00:40 | PN ---
SUBJECTIVE: The patient is a 36-year-old female. The patient seen and examined on the bedside, sleepy, arousable, moving all 4 extremities, still anxious about getting better. No nausea, vomiting, diarrhea. No hematuria. No hematochezia. No swelling of the leg. No chest pain. No palpitation. No headache. No dizziness. PHYSICAL EXAMINATION: VITAL SIGNS: Temperature 98.4, pulse 78, blood pressure 120/75, respiratory rate 20. HEENT: Head: Normocephalic and atraumatic. Eyes: PERRLA. Extraocular muscles intact. Conjunctivae clear. Nose patent. Mucous membrane moist. NECK: Supple. No carotid bruits, JVD, or thyromegaly. CHEST: Bilaterally symmetrical. HEART: S1 and S2 positive. LUNGS: Clear to auscultation. ABDOMEN: Soft. Bowel sounds are positive. No organomegaly. EXTREMITIES: No edema. No cyanosis. NEUROLOGICAL: The patient is awake, alert, moving all four extremities. No focal deficit. MEDICATIONS: Ambien, naproxen, Ativan, Cepacol lozenges, Claritin, Cogentin, Depakote, Colace, fluticasone, Klonopin, Lopressor, Maalox, milk of magnesia, Protonix, Seroquel, Topamax, and Tylenol. LABORATORY DATA: We do not have recent labs today, but I reviewed old labs. ASSESSMENT AND PLAN: The patient is a 36-year-old lady with history of psych problem; history of hypertension, stable; hypercholesteremia; asthma; gastroesophageal reflux disease; dyspepsia; schizoaffective disorder; borderline personality, getting Geodon. Continue present treatment. Gastrointestinal and deep venous thrombosis prophylaxis. Repeat labs. We will follow. Lexis Pulido MD
[2017-06-17 07:16] VITALS: BP 127/83; PULSE 89; TEMP 98.2
--- NOTE | 2017-06-17 09:33 | PCM.BM ---
Treatment Plan Problems - Problems identified on initial assessmt auditory Date Initiated: 06/09/17 Time Initiated: Assessment reference: NA Status: Active Priority: 1 visual Date Initiated: 06/09/17 Time Initiated: Assessment reference: NA Status: Active Priority: 2 medication non adherence Date Initiated: 06/09/17 Time Initiated: :30 Assessment reference: NA Status: Active Priority: 3 altered thought process Date Initiated: 06/09/17 Time Initiated: Assessment reference: NA Status: Active Priority: 4 Treatment assets and liabiliti Patient Assests: adapts well, cooperative, educated, motivated, resourceful, self-reliant, ADL independent, negotiates basic needs, cognitively intact Patient Liabilities: live alone, poor support system, auditory impairment, visual impairment - Milieu Protocol Maintain good personal hygiene: daily Encourage regular showers, daily Remind patient to perform daily oral care, daily Assist patient to perform ADL's Conduct patient checks and document Observation sheet: Q15 minutes Maintain personal safety: every shift Educate patient to report safety concerns to staff, every shift Monitor environment for contraband/sharps Medication safety: Monitor for expected outcome, potential side effects: every shift, Assess barriers to learning: every shift, Assess readiness for medication education: every shift Milieu Narrative: milieu, structure, supportive therapy topamax 75 mg twice a day for most stabilization and losing weight Zolpidem [Ambien] 10 mg PO HS for insomnia Benztropine [Benztropine Mesylate] 1 mg PO BID or possible EPS symptoms Metoprolol Tartrate [Lopressor] 12.5 mg PO bid geodon d/c seroquel 50mg bid RR 100mg hs for psychosis ativan was d/c klonopin 1mg po bid 2mg hs for akathesia medical team evaluation will monitor closely firm limit setting Family Contact Family involvement: Famliy/SO not involved - Goals for Treatment Patient goals for treatment: medication teaching Discharge/Continuing Care - Education Needs Education Needs: Patient Medication, Patient Diagnosis/Disease Process, Patient Coping Skills - Discharge Discharge Criteria: Tolerates medication w/o severe side effects, Free of Suicidal thoughts, Free of Homicidal thoughts, Free of paranoid thoughts, Reduction of target symptoms - Treatment Team Participation Patient/Family/SO Statement: milieu, structure, supportive therapy topamax 75 mg twice a day for most stabilization and losing weight Zolpidem [Ambien] 10 mg PO HS for insomnia Benztropine [Benztropine Mesylate] 1 mg PO BID or possible EPS symptoms Metoprolol Tartrate [Lopressor] 12.5 mg PO bid geodon d/c seroquel 50mg bid RR 100mg hs for psychosis ativan was d/c klonopin 1mg po bid 2mg hs for akathesia medical team evaluation will monitor closely firm limit setting Treatment Plan Review Patient participation: Yes - Problem auditory Date Initiated: 06/17/17 Time Initiated: 09:30 Progress toward outcomes: improved visual Date Initiated: 06/17/17 Time Initiated: 09:30 Progress toward outcomes: improved medication non adherence Date Initiated: 06/17/17 Time Initiated: 09:30 (patient still refusing her depakote) Progress toward outcomes: unchanged altered thought process Date Initiated: 06/17/17 Time Initiated: 09:30 (still paranoid) Progress toward outcomes: unchanged
[2017-06-17] MEDS: Fluticasone Nasal 50 mcg/Spray NS SCH (10:01)
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
== END 2017-06-17 13:15 | disposition left against medical advice (07) | DRG 430 ==
LOC: ED 00:35 → ERH 07:38 → PSYC 08:01
PROVIDERS: ADMIT Psychiatry & Neurology Psychiatry; ATTEND Psychiatry & Neurology Psychiatry
PROC: GZ3ZZZZ Medication Management (ICD-10-PCS; principal; 2017-06-09)
DX: F25.0 Schizoaffective disorder, bipolar type (principal); F60.3 Borderline personality disorder; Z91.14 Patient's other noncompliance with medication regimen; I10 Essential (primary) hypertension; E87.6 Hypokalemia; F41.9 Anxiety disorder, unspecified; K29.70 Gastritis, unspecified, without bleeding; D64.9 Anemia, unspecified; E78.00 Pure hypercholesterolemia, unspecified; E78.1 Pure hyperglyceridemia; K21.9 Gastro-esophageal reflux disease without esophagitis; R51 Headache; G47.00 Insomnia, unspecified; J45.909 Unspecified asthma, uncomplicated; E66.9 Obesity, unspecified; Z68.37 Body mass index [BMI] 37.0-37.9, adult; Z91.410 Personal history of adult physical and sexual abuse

== ENCOUNTER 2017-09-10 17:56 | Emergency (ER) | payer MEDICAID, OTHER ==
[2017-09-10 17:57] VITALS: BMI 363.2
--- NOTE | 2017-09-10 18:19 | ED PDOC ---
Arrival/HPI - General Time Seen by Provider: 09/10/17 18:07 Historian: Patient - History of Present Illness Narrative History of Present Illness (Text): 09/10/17 18:09 37 y/o female, pmh including htn/gerd, psychiatric history of schizoaffective/ tardive dyskinesia, allergic to haldol/benadryl, c/o nausea/vomiting/diarrhea started today. Pt. stated that she has been having coughing with nasal congestion for the past few days, seen by her own pmd Dr. Pulido which she is on the zithromax and coughing syrup, started to have diarrhea and vomiting today , no fever or chills, no abdominal pain, no night sweat, no dizziness, no homicidal suicidial ideation, no auditory or visual hallucination, no urinary symptoms, no change in vision, no numbness or tingling, no palpitation, no other medical or psychological complaints. Past Medical History - Provider Review Nursing Documentation Reviewed: Yes - Infectious Disease Hx of Infectious Diseases: None - Tetanus Immunization Tetanus Immunization: Unknown - Cardiac Hx Cardiac Disorders: Yes Hx Hypertension: Yes - Pulmonary Hx Respiratory Disorders: Yes Hx Asthma: Yes Hx Tuberculosis: No - Neurological Hx Neurological Disorder: No HX Cerebrovascular Accident: No Hx Seizures: No - HEENT Hx HEENT Disorder: No - Renal Hx Renal Disorder: No Hx Dialysis: No - Endocrine/Metabolic Hx Endocrine Disorders: No - Hematological/Oncological Hx Blood Disorders: Yes Hx Anemia: Yes Hx Cancer: No - Integumentary Hx Dermatological Disorder: No - Musculoskeletal/Rheumatological Hx Musculoskeletal Disorders: No - Gastrointestinal Hx Gastrointestinal Disorders: Yes Hx Gastritis: Yes - Genitourinary/Gynecological Hx Genitourinary Disorders: No Hx Sexually Transmitted Diseases: No - Psychiatric Hx Bipolar Disorder: Yes Hx Depression: Yes Hx Schizophrenia: Yes Hx Substance Use: No - Surgical History Other/Comment: Skin Graft - Anesthesia Hx Anesthesia: Yes Hx Anesthesia Reactions: No Hx Malignant Hyperthermia: No - Suicidal Assessment Feels Threatened In Home Enviroment: No Family/Social History - Physician Review Nursing Documentation Reviewed: Yes Family/Social History: Unknown Family HX Smoking Status: Never Smoked Hx Alcohol Use: No Hx Substance Use: No Hx Substance Use Treatment: No Allergies/Home Meds Allergies/Adverse Reactions: Allergies diphenhydramine HCl [From Benadryl] Allergy (Verified 09/10/17 18:08) ANAPHYLAXIS FISH Allergy (Verified 09/10/17 18:08) RASH fluphenazine [From Prolixin] Allergy (Verified 09/10/17 18:08) ANAPHYLAXIS haloperidol [From Haldol] Adverse Reaction (Verified 09/10/17 18:08) SHORTNESS OF BREATH haloperidol lactate [From Haldol] Adverse Reaction (Verified 09/10/17 18:08) SHORTNESS OF BREATH seafood Allergy (Uncoded 09/10/17 18:08) RASH Review of Systems - Review of Systems Constitutional: absent: Fatigue, Fevers Eyes: absent: Vision Changes ENT: absent: Hearing Changes Respiratory: Cough. absent: SOB, Sputum Cardiovascular: absent: Chest Pain Gastrointestinal: Diarrhea, Vomiting. absent: Abdominal Pain, Nausea Musculoskeletal: absent: Arthralgias, Myalgias Skin: absent: Rash, Pruritis Neurological: absent: Headache, Dizziness Psychiatric: absent: Anxiety, Depression, Suicidal Ideation Physical Exam Vital Signs Reviewed: Yes Vital Signs Temp Pulse Resp BP Pulse Ox 09/10/17 22:00 97.9 F 82 16 132/80 99 09/10/17 20:17 86 16 137/77 98 09/10/17 18:15 92 H 24 167/92 H 100 09/10/17 18:13 98.4 F 100 H 24 178/120 H 100 Temperature: Afebrile Blood Pressure: Hypertensive Respiratory Rate: Normal Appearance: Positive for: Well-Appearing, Non-Toxic, Comfortable Pain Distress: None Mental Status: Positive for: Alert and Oriented X 3 - Systems Exam Head: Present: Atraumatic, Normocephalic Pupils: Present: PERRL Extroacular Muscles: Present: EOMI Conjunctiva: Present: Normal Ears: Present: NORMAL TM, Normal Canal. No: Erythema Mouth: Present: Moist Mucous Membranes Nose (External): Present: Atraumatic. No: Abrasion, Contusion Nose (Internal): Present: Normal Inspection, No Active Bleeding. No: Rhinorrhea , Septal Hematoma, Epistaxis Neck: Present: Normal Range of Motion, Trachea Midline. No: Meningeal Signs, MIDLINE TENDERNESS, Lymphadenopathy Respiratory/Chest: Present: Clear to Auscultation, Good Air Exchange. No: Respiratory Distress, Accessory Muscle Use, Wheezes, Decreased Breath Sounds, Rales, Retracting, Rhonchi, Tachypneic, Tender to Palpation Cardiovascular: Present: Regular Rate and Rhythm, Normal S1, S2. No: Murmurs Abdomen: Present: Normal Bowel Sounds. No: Tenderness, Distention, Peritoneal Signs, Rebound, Guarding Back: Present: Normal Inspection Upper Extremity: Present: Normal Inspection. No: Cyanosis, Edema Lower Extremity: Present: Normal Inspection. No: Edema Neurological: Present: GCS=15, Speech Normal, Motor Func Grossly Intact, Gait Normal, Memory Normal Skin: Present: Warm, Dry, Normal Color. No: Rashes Psychiatric: Present: Alert, Oriented x 3, Normal Insight, Normal Concentration Medical Decision Making ED Course and Treatment: 09/10/17 18:23 -labs/ua -IVF/pepcid -Chest xray -Observe and reassess 09/10/17 19:41 -Pt. was moving her body while taking her BP and refused to take off to change to gown for repeat v/s -I was notify by the ER RNs stated that the patient refused to change to gown for labs as she needs time to think about it. 09/10/17 21:30 -Pt. was anxious and crying about the care provided by the RADIO PRESENTER assigned, Charge nurse awared and spoke to the patient, Dr. Hicks awared of the situation. -Labs are non-significant except wbc 11.8 (likely stress induced), abdomen is soft with no tenderness or guarding. -Chest xray show no active disease -Vitally stable, eating and drinking her own sodas, no further emergent evaluation indicated. -Pt. can be discharged home. -Discharge home with pepcid, zofran, stay hydrated, bed rest, follow up with your own pmd and GI within 2 days, return to the ER for any new or worsening signs or symptoms. - Lab Interpretations Lab Results: 09/10/17 20:05 09/10/17 20:05 Lab Results 09/10/17 20:05: Beta HCG, Quant < 2.39 09/10/17 20:05: Sodium 141, Potassium 3.6, Chloride 110 H, Carbon Dioxide 18 L, Anion Gap 17, BUN 13, Creatinine 0.6 L, Est GFR ( Amer) > 60, Est GFR ( Non-Af Amer) > 60, Random Glucose 120 H, Calcium 9.5, Magnesium 2.0, Total Bilirubin 0.6, AST 44 H D, ALT 30, Alkaline Phosphatase 93, Total Protein 8.4 H , Albumin 4.7, Globulin 3.7, Albumin/Globulin Ratio 1.3, Lipase 100 09/10/17 20:05: WBC 11.8 H, RBC 4.83, Hgb 13.4, Hct 39.3, MCV 81.4, MCH 27.7, MCHC 34.1, RDW 13.6, Plt Count 397, MPV 8.3, Gran % 53.1, Lymph % (Auto) 36.7 H , [place] % (Auto) 8.0 H, Eos % (Auto) 1.6, Baso % (Auto) 0.6, Gran # 6.28, Lymph # 4.3 H, [place] # 1.0 H, Eos # 0.2, Baso # 0.07 - RAD Interpretation Radiology Orders: 09/10/17 18:24 CHEST W/APICAL(2VW W/APICAL) [RAD] Stat no active disease Digital Account Manager: Radiologist - Medication Orders Current Medication Orders: Discontinued Medications Famotidine (Pepcid) 20 mg IVP STAT STA Stop: 09/10/17 18:21 Last Admin: 09/10/17 20:17 Dose: 20 mg IVP Administration Document 09/10/17 20:17 SC (Rec: 09/10/17 20:17 [id number]) Charges for Administration # of IVP Administrations 1 Sodium Chloride (Sodium Chloride 0.9%) 1,000 mls @ 999 mls/hr IV .Q1H1M STA Stop: 09/10/17 19:20 Last Admin: 09/10/17 20:17 Dose: 999 mls/hr eMAR Start Stop Document 09/10/17 20:17 SC (Rec: 09/10/17 20:17 [id number]) Intravenous Solution Start Date 09/10/17 Start Time 20:17 End Date 09/10/17 End time 21:20 Total Infusion Time 63 - PA / MINE BOSS / Resident Statement /DO has reviewed & agrees with the documentation as recorded. Disposition/Present on Arrival - Present on Arrival Any Indicators Present on Arrival: No History of DVT/PE: No History of Uncontrolled Diabetes: No Urinary Catheter: No History of Decub. Ulcer: No History Surgical Site Infection Following: None - Disposition Have Diagnosis and Disposition been Completed?: Yes Diagnosis: Nausea vomiting and diarrhea Disposition: HOME/ ROUTINE Disposition Time: 21:33 Patient Plan: Discharge Condition: IMPROVED Additional Instructions: -Discharge home with pepcid, zofran, stay hydrated, bed rest, follow up with your own pmd and GI within 2 days, return to the ER for any new or worsening signs or symptoms. Prescriptions: Famotidine [Pepcid] 20 mg PO BID #28 tab Ondansetron [Zofran] 4 mg PO Q8H PRN #12 tab PRN Reason: Other Referrals: Lexis Pulido MD [Primary Care Provider] - Follow up with primary Eunice Thomas MD, MD [Medical Doctor] - Follow up with primary Forms: WORK NOTE
[2017-09-10] MEDS ORDERED: Sodium Chloride 0.9% 1,000 ML IV STA (18:20)
[2017-09-10 20:18] VITALS: RESP 16
[2017-09-10 20:22] LABS: BASO # 0.07 K/mm3 (0.0-2.0); BASO % 0.6 % (0.0-3.0); EOS # 0.2 (0.0-0.7); EOS % 1.6 % (1.5-5.0); GRAN # 6.28 (1.4-6.5); GRAN % 53.1 % (50.0-68.0); HEMATOCRIT 39.3 % (36.0-48.0); LYMPH # 4.3 (1.2-3.4); LYMPH % 36.7 % (22.0-35.0); MEAN CELL VOLUME 81.4 fl (80.0-105.0); MEAN CORPUSCULAR HEMOGLOBIN 27.7 pg (25.0-35.0); MEAN CORPUSCULAR HGB CONC 34.1 g/dl (31.0-37.0); MEAN PLATELET VOLUME 8.3 fl (7.0-11.0); RED CELL DISTRIBUTION WIDTH 13.6 % (11.5-14.5); WHITE BLOOD COUNT 11.8 10^3/ul (4.5-11.0)
[2017-09-10 20:38] LABS: BILIRUBIN,TOTAL 0.6 mg/dL (0.2-1.3); CALCIUM 9.5 mg/dL (8.4-10.5); GFR AFRICAN-AMERICAN > 60; GLUCOSE,RANDOM 120 mg/dL (70-110); LIPASE 100 U/L (23-300); TOTAL PROTEIN 8.4 g/dL (5.8-8.3)
[2017-09-10 20:56] LABS: ALB/GLOB RATIO 1.3 (1.1-1.8); ALKALINE PHOSPHATASE 93 U/L (38-126); ALT/SGPT 30 U/L (7-56); AST/SGOT 44 U/L (14-36); BLOOD UREA NITROGEN 13 mg/dL (7-21); CARBON DIOXIDE 18 mmol/L (21-33); CHLORIDE 110 mmol/L (98-107); POTASSIUM 3.6 mmol/L (3.6-5.0); SODIUM 141 mmol/L (132-148)
[2017-09-10 22:04] VITALS: BP 132/80; PULSE 82; TEMP 97.9; O2SAT 99
--- NOTE | 2017-09-11 09:06 | RAD ---
HISTORY: cough x 1 week COMPARISON: 06/09/2017 TECHNIQUE: Chest PA and lateral. An apical view was also performed FINDINGS: LUNGS: No active pulmonary disease. PLEURA: No significant pleural effusion identified. No pneumothorax apparent. CARDIOVASCULAR: Normal. OSSEOUS STRUCTURES: No significant abnormalities. VISUALIZED UPPER ABDOMEN: Normal. OTHER FINDINGS: None. IMPRESSION: No active disease.
== END 2017-09-10 22:09 | disposition home or self-care (01) ==
LOC: ED 17:56
DX: R11.2 Nausea with vomiting, unspecified (principal); R19.7 Diarrhea, unspecified; I10 Essential (primary) hypertension
CPT/HCPCS: 71021; 80053; 83690; 83735; 84702; 85025; 96361; 96374; 99285; J7040

== ENCOUNTER 2017-09-12 13:31 | Emergency (ER) | payer OTHER ==
[2017-09-12 14:09] VITALS: BMI 30.7
[2017-09-12 14:36] VITALS: BP 118/66; PULSE 82; RESP 16; TEMP 98.9; O2SAT 99
== END 2017-09-12 15:00 | disposition left against medical advice (07) ==
LOC: ED 13:31
DX: Z02.89 Encounter for other administrative examinations (principal); J11.1 Influenza due to unidentified influenza virus with other respiratory manifestations

== ENCOUNTER 2017-12-06 12:43 | Emergency (ER) | payer OTHER ==
[2017-12-06 12:43] VITALS: BMI 30.7
[2017-12-06 13:00] VITALS: BP 124/88; PULSE 72; RESP 18; TEMP 97; O2SAT 98
--- NOTE | 2017-12-06 13:17 | ED PDOC ---
Arrival/HPI - General Chief Complaint: Finger,Hand,&Wrist Time Seen by Provider: 12/06/17 13:13 Historian: Patient - History of Present Illness Narrative History of Present Illness (Text): 12/06/17 13:15 37 y/o female, c/o rt. hand 4th digit finger pain x 1 week s/p hit it against on a furniture. Aching pain, aggravated by movement, no numbness or tingling, no rash, no other medical or psychological complaints. Past Medical History - Provider Review Nursing Documentation Reviewed: Yes - Infectious Disease Hx of Infectious Diseases: None - Tetanus Immunization Tetanus Immunization: Unknown - Cardiac Hx Cardiac Disorders: Yes Hx Hypertension: Yes - Pulmonary Hx Respiratory Disorders: Yes Hx Asthma: Yes Hx Tuberculosis: No - Neurological Hx Neurological Disorder: No - HEENT Hx HEENT Disorder: No - Renal Hx Renal Disorder: No - Endocrine/Metabolic Hx Endocrine Disorders: No - Hematological/Oncological Hx Blood Disorders: Yes Hx Anemia: Yes - Integumentary Hx Dermatological Disorder: No - Musculoskeletal/Rheumatological Hx Musculoskeletal Disorders: No - Gastrointestinal Hx Gastrointestinal Disorders: Yes Hx Gastritis: Yes - Genitourinary/Gynecological Hx Genitourinary Disorders: No - Psychiatric Hx Bipolar Disorder: Yes Hx Depression: Yes Hx Schizophrenia: Yes Hx Substance Use: No - Surgical History Other/Comment: Skin Graft - Anesthesia Hx Anesthesia: Yes Hx Anesthesia Reactions: No Hx Malignant Hyperthermia: No - Suicidal Assessment Feels Threatened In Home Enviroment: No Family/Social History - Physician Review Nursing Documentation Reviewed: Yes Family/Social History: Unknown Family HX Smoking Status: Never Smoked Hx Alcohol Use: No Hx Substance Use: No Hx Substance Use Treatment: No Allergies/Home Meds Allergies/Adverse Reactions: Allergies diphenhydramine HCl [From Benadryl] Allergy (Verified 12/06/17 12:56) ANAPHYLAXIS FISH Allergy (Verified 12/06/17 12:56) RASH fluphenazine [From Prolixin] Allergy (Verified 12/06/17 12:56) ANAPHYLAXIS haloperidol [From Haldol] Adverse Reaction (Verified 12/06/17 12:56) SHORTNESS OF BREATH haloperidol lactate [From Haldol] Adverse Reaction (Verified 12/06/17 12:56) SHORTNESS OF BREATH seafood Allergy (Uncoded 12/06/17 12:56) RASH Review of Systems - Review of Systems Constitutional: absent: Fatigue, Fevers Eyes: absent: Vision Changes ENT: absent: Hearing Changes Respiratory: absent: SOB, Cough Cardiovascular: absent: Chest Pain Gastrointestinal: absent: Abdominal Pain, Nausea, Vomiting Musculoskeletal: Arthralgias. absent: Back Pain, Neck Pain, Joint Swelling, Myalgias Skin: absent: Rash, Pruritis Neurological: absent: Headache, Dizziness Psychiatric: absent: Anxiety, Depression, Suicidal Ideation Physical Exam Vital Signs Reviewed: Yes Vital Signs Temp Pulse Resp BP Pulse Ox 12/06/17 12:51 97 F L 72 18 124/88 98 Temperature: Afebrile Blood Pressure: Normal Pulse: Regular Respiratory Rate: Normal Appearance: Positive for: Well-Appearing, Non-Toxic, Comfortable Pain Distress: Mild Mental Status: Positive for: Alert and Oriented X 3 - Systems Exam Head: Present: Atraumatic, Normocephalic Pupils: Present: PERRL Extroacular Muscles: Present: EOMI Conjunctiva: Present: Normal Mouth: Present: Moist Mucous Membranes Respiratory/Chest: Present: Clear to Auscultation, Good Air Exchange. No: Respiratory Distress, Accessory Muscle Use Cardiovascular: Present: Regular Rate and Rhythm, Normal S1, S2. No: Murmurs Abdomen: Present: Normal Bowel Sounds. No: Tenderness, Distention, Peritoneal Signs Back: Present: Normal Inspection Upper Extremity: Present: Normal Inspection, Other (Rt. hand: +ttp on the 4th PIPJ region, skin intact, no ecchymosis, FROM without limitation, sensation intact, motor 5/5, +radial pulse, capillary refill< 2 seconds, neurovascular intact. ). No: Cyanosis, Edema Lower Extremity: Present: Normal Inspection. No: Edema Neurological: Present: GCS=15, CN II-XII Intact, Speech Normal Skin: Present: Warm, Dry, Normal Color. No: Rashes Psychiatric: Present: Alert, Oriented x 3, Normal Insight, Normal Concentration Medical Decision Making ED Course and Treatment: 12/06/17 13:16 -xray -motrin -observe and reassess 12/06/17 14:07 -Urine hcg is negative -Official xray stated that there is no acute fracture or dislocation. Xray films reviewed by me and Dr. Cerna which we see there is 4th head of the proximal phalanx with lucency and very mild cortical defects near the PIPJ which can be non-displaced fracture, expressed my concern to the patient, finger splint applied with neurovascular intact. . -Discharge home with finger splint, naproxen, follow up with your own pmd and orthopedic within 2 days, return to the ER for any new or worsening signs or symptoms. - RAD Interpretation Radiology Orders: 12/06/17 13:14 HAND RIGHT 4TH DIGIT (FINGER) [RAD] Stat normal right ringer finger radiograph Trigonometry Tutor: Radiologist - PA / COUNTERINTELLIGENCE AGENT / Resident Statement MD/DO has reviewed & agrees with the documentation as recorded. Disposition/Present on Arrival - Present on Arrival Any Indicators Present on Arrival: No History of DVT/PE: No History of Uncontrolled Diabetes: No Urinary Catheter: No History of Decub. Ulcer: No History Surgical Site Infection Following: None - Disposition Have Diagnosis and Disposition been Completed?: Yes Diagnosis: Abnormal x-ray, Finger pain, Finger injury Disposition: HOME/ ROUTINE Disposition Time: 13:17 Patient Plan: Discharge Condition: GOOD Additional Instructions: -Discharge home with finger splint, naproxen, follow up with your own pmd and orthopedic within 2 days, return to the ER for any new or worsening signs or symptoms. Prescriptions: Naproxen 500 mg PO BID PRN #24 tablet PRN Reason: Other Referrals: Lexis Pulido MD [Primary Care Provider] - Follow up with primary Santhosh Jarquin MD [Staff Provider] - Follow up with primary Forms: WORK NOTE
--- NOTE | 2017-12-06 14:55 | RAD ---
PROCEDURE: Right ring finger radiographs. HISTORY: rt. hand 4th digit PIPJ pain COMPARISON: None. TECHNIQUE: AP radiograph of the right hand, as well as spot oblique and lateral images of ring finger were obtained. FINDINGS: RIGHT RING FINGER: Normal right ring finger, without fracture or focal lesion. Remainder of the right hand (as seen on the AP view) grossly unremarkable. JOINTS: Normal. SOFT TISSUES: Normal. OTHER FINDINGS: None. IMPRESSION: Normal right ring finger radiographs.
== END 2017-12-06 14:18 | disposition home or self-care (01) ==
LOC: ED 12:43
DX: S69.91XA Unspecified injury of right wrist, hand and finger(s), initial encounter (principal); W22.03XA Walked into furniture, initial encounter; Y92.89 Other specified places as the place of occurrence of the external cause; R93.7 Abnormal findings on diagnostic imaging of other parts of musculoskeletal system; M79.644 Pain in right finger(s)

== ENCOUNTER 2017-12-11 10:00 | Emergency (ER) | payer OTHER ==
[2017-12-11 10:18] VITALS: TEMP 98.5
[2017-12-11 10:20] VITALS: BMI 28.3
[2017-12-11 10:23] VITALS: O2SAT 100
--- NOTE | 2017-12-11 10:45 | ED PDOC ---
Arrival/HPI - General Chief Complaint: Wound Check Time Seen by Provider: 12/11/17 10:40 Historian: Patient - History of Present Illness Narrative History of Present Illness (Text): 12/11/17 10:41 37yo female present to ED for dressing change. States she was told here on Thursday that she has a Fracture of her right 4th finger. States she was supposed to follow up with orthopedist, but she missed her appointment. She went to the orthopedist today and they couldn't see her so she came to ED for a dressing change. she denies any focal weakness, pain, any other complaint. Past Medical History - Provider Review Nursing Documentation Reviewed: Yes - Infectious Disease Hx of Infectious Diseases: None - Tetanus Immunization Tetanus Immunization: Unknown - Cardiac Hx Cardiac Disorders: Yes Hx Hypertension: Yes - Pulmonary Hx Respiratory Disorders: Yes Hx Asthma: Yes Hx Tuberculosis: No - Neurological Hx Neurological Disorder: No - HEENT Hx HEENT Disorder: No - Renal Hx Renal Disorder: No - Endocrine/Metabolic Hx Endocrine Disorders: No - Hematological/Oncological Hx Blood Disorders: Yes Hx Anemia: Yes - Integumentary Hx Dermatological Disorder: No - Musculoskeletal/Rheumatological Hx Musculoskeletal Disorders: No - Gastrointestinal Hx Gastrointestinal Disorders: Yes Hx Gastritis: Yes - Genitourinary/Gynecological Hx Genitourinary Disorders: No - Psychiatric Hx Bipolar Disorder: Yes Hx Depression: Yes Hx Schizophrenia: Yes Hx Substance Use: No - Surgical History Other/Comment: Skin Graft - Anesthesia Hx Anesthesia: Yes Hx Anesthesia Reactions: No Hx Malignant Hyperthermia: No - Suicidal Assessment Feels Threatened In Home Enviroment: No Family/Social History - Physician Review Nursing Documentation Reviewed: Yes Family/Social History: Unknown Family HX Smoking Status: Never Smoked Hx Alcohol Use: No Hx Substance Use: No Hx Substance Use Treatment: No Allergies/Home Meds Allergies/Adverse Reactions: Allergies diphenhydramine HCl [From Benadryl] Allergy (Verified 12/11/17 10:18) ANAPHYLAXIS FISH Allergy (Verified 12/11/17 10:18) RASH fluphenazine [From Prolixin] Allergy (Verified 12/11/17 10:18) ANAPHYLAXIS haloperidol [From Haldol] Adverse Reaction (Verified 12/11/17 10:18) SHORTNESS OF BREATH haloperidol lactate [From Haldol] Adverse Reaction (Verified 12/11/17 10:18) SHORTNESS OF BREATH seafood Allergy (Uncoded 12/11/17 10:18) RASH Review of Systems - Physician Review All systems were reviewed & negative as marked: Yes - Review of Systems Constitutional: Normal Eyes: Normal ENT: Normal Respiratory: Normal Cardiovascular: Normal Gastrointestinal: Normal Genitourinary Female: Normal Musculoskeletal: Other (right 4th finger possible fracture dressing change) Skin: Normal Neurological: Normal Endocrine: Normal Hemo/Lymphatic: Normal Psychiatric: Normal Physical Exam Vital Signs Reviewed: Yes Vital Signs Temp Pulse Resp BP Pulse Ox 12/11/17 10:50 71 17 140/82 100 12/11/17 10:20 98.5 F 68 18 145/89 100 12/11/17 10:15 98.5 F 76 18 145/89 98 Temperature: Afebrile Blood Pressure: Normal Pulse: Regular Respiratory Rate: Normal Appearance: Positive for: Well-Appearing, Non-Toxic, Comfortable Pain Distress: None Mental Status: Positive for: Alert and Oriented X 3 - Systems Exam Head: Present: Atraumatic, Normocephalic Pupils: Present: PERRL Extroacular Muscles: Present: EOMI Conjunctiva: Present: Normal Mouth: Present: Moist Mucous Membranes Neck: Present: Normal Range of Motion Respiratory/Chest: Present: Clear to Auscultation, Good Air Exchange. No: Respiratory Distress, Accessory Muscle Use Cardiovascular: Present: Regular Rate and Rhythm, Normal S1, S2. No: Murmurs Abdomen: Present: Normal Bowel Sounds. No: Tenderness, Distention, Peritoneal Signs Back: Present: Normal Inspection Upper Extremity: Present: Normal Inspection, Other (Finger splint noted to right 4th finger. No sign of infection. FROM.). No: Cyanosis, Edema Lower Extremity: Present: Normal Inspection. No: Edema Neurological: Present: GCS=15, CN II-XII Intact, Speech Normal Skin: Present: Warm, Dry, Normal Color. No: Rashes Psychiatric: Present: Alert, Oriented x 3, Normal Insight, Normal Concentration Medical Decision Making ED Course and Treatment: 12/11/17 10:46 Finger splint was re wrapped in ED. Pt have FROM and NVI. No sign of infection. PT referred to the ortho electrophysiology nurse practitioner today. Xray report from her last visit was also reviewed and they was no fracture . Disposition/Present on Arrival - Present on Arrival Any Indicators Present on Arrival: No History of DVT/PE: No History of Uncontrolled Diabetes: No Urinary Catheter: No History of Decub. Ulcer: No History Surgical Site Infection Following: None - Disposition Have Diagnosis and Disposition been Completed?: Yes Diagnosis: Finger pain Disposition: HOME/ ROUTINE Disposition Time: 10:45 Patient Plan: Discharge Condition: STABLE Additional Instructions: Follow up with your doctor/orthopedist Return to ED for new symptoms Referrals: [facility] Danilo Remateus, [Non-Staff] - Follow up with primary Chriss Lerner MD [Staff Provider] - Follow up with primary Forms: [employer] (Greek)
[2017-12-11 10:51] VITALS: BP 140/82; PULSE 71; RESP 17
== END 2017-12-11 10:51 | disposition home or self-care (01) ==
LOC: ED 10:00
DX: M79.644 Pain in right finger(s) (principal); I10 Essential (primary) hypertension; F20.9 Schizophrenia, unspecified

== ENCOUNTER 2018-01-09 18:44 | Inpatient (IN) | payer MEDICAID, OTHER ==
[2018-01-09 19:53] VITALS: BMI 32.5
--- NOTE | 2018-01-09 20:19 | ED PDOC ---
Arrival/HPI - General Chief Complaint: Psychiatric Evaluation Time Seen by Provider: 01/09/18 20:01 Historian: Patient - History of Present Illness Narrative History of Present Illness (Text): 01/09/18 20:17 37yo female with PMHx of Depression and schizoaffective disorder who present to ED requesting to be seen by PES. Patient states she is having visual hallucination, paranoid, constantly checking her window and feels depressed. she thinks her meds needs to be adjusted. she denies SI/HI, any other complaint. Past Medical History - Provider Review Nursing Documentation Reviewed: Yes - Infectious Disease Hx of Infectious Diseases: None - Tetanus Immunization Tetanus Immunization: Unknown - Cardiac Hx Cardiac Disorders: Yes Hx Hypertension: Yes - Pulmonary Hx Respiratory Disorders: Yes Hx Asthma: Yes Hx Tuberculosis: No - Neurological Hx Neurological Disorder: No - HEENT Hx HEENT Disorder: No - Renal Hx Renal Disorder: No - Endocrine/Metabolic Hx Endocrine Disorders: No - Hematological/Oncological Hx Blood Disorders: Yes Hx Anemia: Yes - Integumentary Hx Dermatological Disorder: No - Musculoskeletal/Rheumatological Hx Musculoskeletal Disorders: No - Gastrointestinal Hx Gastrointestinal Disorders: Yes Hx Gastritis: Yes - Genitourinary/Gynecological Hx Genitourinary Disorders: No - Psychiatric Hx Bipolar Disorder: Yes Hx Depression: Yes Hx Schizophrenia: Yes Hx Substance Use: No - Surgical History Other/Comment: Skin Graft - Anesthesia Hx Anesthesia: Yes Hx Anesthesia Reactions: No Hx Malignant Hyperthermia: No - Suicidal Assessment Feels Threatened In Home Enviroment: No Family/Social History - Physician Review Nursing Documentation Reviewed: Yes Family/Social History: Unknown Family HX Smoking Status: Never Smoked Hx Alcohol Use: No Hx Substance Use: No Hx Substance Use Treatment: No Allergies/Home Meds Allergies/Adverse Reactions: Allergies diphenhydramine HCl [From Benadryl] Allergy (Verified 12/11/17 10:18) ANAPHYLAXIS FISH Allergy (Verified 12/11/17 10:18) RASH fluphenazine [From Prolixin] Allergy (Verified 12/11/17 10:18) ANAPHYLAXIS haloperidol [From Haldol] Adverse Reaction (Verified 12/11/17 10:18) SHORTNESS OF BREATH haloperidol lactate [From Haldol] Adverse Reaction (Verified 12/11/17 10:18) SHORTNESS OF BREATH seafood Allergy (Uncoded 12/11/17 10:18) RASH Review of Systems - Physician Review All systems were reviewed & negative as marked: Yes - Review of Systems Constitutional: Normal Eyes: Normal ENT: Normal Respiratory: Normal Cardiovascular: Normal Gastrointestinal: Normal Genitourinary Female: Normal Musculoskeletal: Normal Skin: Normal Neurological: Normal Endocrine: Normal Hemo/Lymphatic: Normal Psychiatric: Depression, Other (Paranoid) Physical Exam Vital Signs Reviewed: Yes Vital Signs Temp Pulse Resp BP Pulse Ox 01/09/18 23:20 88 19 118/76 100 01/09/18 19:53 98.7 F 100 H 16 121/78 97 Temperature: Afebrile Blood Pressure: Normal Pulse: Regular Respiratory Rate: Normal Appearance: Positive for: Well-Appearing, Non-Toxic, Comfortable, Other (Appear sleepy) Pain Distress: None Mental Status: Positive for: Alert and Oriented X 3 - Systems Exam Head: Present: Atraumatic, Normocephalic Pupils: Present: PERRL Extroacular Muscles: Present: EOMI Conjunctiva: Present: Normal Mouth: Present: Moist Mucous Membranes Neck: Present: Normal Range of Motion Respiratory/Chest: Present: Clear to Auscultation, Good Air Exchange. No: Respiratory Distress, Accessory Muscle Use Cardiovascular: Present: Regular Rate and Rhythm, Normal S1, S2. No: Murmurs Abdomen: No: Tenderness, Distention, Peritoneal Signs Back: Present: Normal Inspection Upper Extremity: Present: Normal Inspection. No: Cyanosis, Edema Lower Extremity: Present: Normal Inspection. No: Edema Neurological: Present: GCS=15, CN II-XII Intact, Speech Normal Skin: Present: Warm, Dry, Normal Color. No: Rashes Psychiatric: Present: Alert, Oriented x 3, Normal Insight, Normal Concentration Medical Decision Making ED Course and Treatment: 01/10/18 01:23 Potassium was repleted in ED. PT was medically cleared for psych evaluation. She was seen in ED by GENESIS Sosa and was admitted to Dr. Castro for schizoaffective disorder EKG NSR @82bpm - Lab Interpretations Lab Results: 01/09/18 20:25 01/09/18 20:25 Lab Results 01/09/18 20:25: Alcohol, Quantitative < 10 01/09/18 20:25: Salicylates < 1 L, Acetaminophen < 10.0 L 01/09/18 20:25: Urine Opiates Screen Negative, Urine Methadone Screen Negative, Ur Barbiturates Screen Negative, Ur Phencyclidine Scrn Negative, Ur Amphetamines Screen Negative, U Benzodiazepines Scrn Negative, U Oth Cocaine Metabols Negative, U Cannabinoids Screen Negative 01/09/18 20:25: Sodium 144, Potassium 3.0 L, Chloride 114 H, Carbon Dioxide 18 L , Anion Gap 15, BUN 12, Creatinine 0.6 L, Est GFR ( Amer) > 60, Est GFR ( Non-Af Amer) > 60, Random Glucose 93, Calcium 8.5, Total Bilirubin 0.1 L, AST 21 , ALT 24, Alkaline Phosphatase 75, Total Protein 6.8, Albumin 3.8, Globulin 3.0 , Albumin/Globulin Ratio 1.3 01/09/18 20:25: Urine Color Yellow, Urine Appearance Clear, Urine pH 6.0, Ur Specific [place] <= 1.005, Urine Protein Negative, Urine Glucose (UA) Negative, Urine Ketones Negative, Urine Blood Large H, Urine Nitrate Negative, Urine Bilirubin Negative, Urine Urobilinogen 0.2, Ur Leukocyte Esterase Negative, Urine RBC 20 - 25, Urine WBC 0 - 2, Ur Epithelial Cells 4 - 5, Urine Bacteria Mod 01/09/18 20:25: WBC 7.1 D, RBC 4.17, Hgb 11.1 L D, Hct 33.1 L, MCV 79.4 L, MCH 26.6, MCHC 33.5, RDW 14.6 H, Plt Count 298, MPV 8.5, Gran % 66.3, Lymph % (Auto ) 25.2, Boyd % (Auto) 6.7 H, Eos % (Auto) 1.4 L, Baso % (Auto) 0.4, Gran # 4.67 , Lymph # (Auto) 1.8, Boyd # (Auto) 0.5, Eos # (Auto) 0.1, Baso # (Auto) 0.03 - RAD Interpretation Radiology Orders: 01/09/18 23:18 CHEST PORTABLE [RAD] Stat - Medication Orders Current Medication Orders: Discontinued Medications Potassium Chloride (K-Dur 20 Meq Er Tab) 40 meq PO STAT STA Stop: 01/09/18 21:41 Last Admin: 01/09/18 22:01 Dose: 40 meq Disposition/Present on Arrival - Present on Arrival Any Indicators Present on Arrival: No History of DVT/PE: No History of Uncontrolled Diabetes: No Urinary Catheter: No History of Decub. Ulcer: No History Surgical Site Infection Following: None - Disposition Have Diagnosis and Disposition been Completed?: Yes Diagnosis: Schizoaffective disorder Disposition: HOSPITALIZED Disposition Time: 21:55 Condition: FAIR Referrals: Lexis Pulido MD [Primary Care Provider] - Follow up with primary Forms: [employer] (Romanian)
[2018-01-09 20:54] LABS: URINE BILIRUBIN NEGATIVE (NEGATIVE); URINE BLOOD LARGE (NEGATIVE); URINE GLUCOSE (UA) NEGATIVE (NEGATIVE); URINE LEUKOCYTE ESTERASE NEGATIVE Leu/uL (NEGATIVE); URINE PROTEIN NEGATIVE mg/dL (<30 mg/dL); URINE UROBILINOGEN 0.2 E.U./dL (<1 E.U./dL)
[2018-01-09 20:55] LABS: BASO # 0.03 K/mm3 (0.0-2.0); BASO % 0.4 % (0.0-3.0); EOS # 0.1 (0.0-0.7); EOS % 1.4 % (1.5-5.0); GRAN # 4.67 (1.4-6.5); GRAN % 66.3 % (50.0-68.0); HEMOGLOBIN 11.1 g/dL (12.0-16.0); LYMPH # 1.8 (1.2-3.4); LYMPH % 25.2 % (22.0-35.0); MEAN CELL VOLUME 79.4 fl (80.0-105.0); MEAN CORPUSCULAR HEMOGLOBIN 26.6 pg (25.0-35.0); MEAN CORPUSCULAR HGB CONC 33.5 g/dl (31.0-37.0); MEAN PLATELET VOLUME 8.5 fl (7.0-11.0); MONO # 0.5 (0.1-0.6); MONO % 6.7 % (1.0-6.0); RBC 4.17 10^6/uL (3.5-6.1); RED CELL DISTRIBUTION WIDTH 14.6 % (11.5-14.5); WHITE BLOOD COUNT 7.1 10^3/ul (4.5-11.0)
[2018-01-09 21:02] LABS: URINE APPEARANCE CLEAR (CLEAR); URINE COLOR YELLOW (YELLOW)
[2018-01-09 21:09] LABS: URINE BACTERIA MOD (NEG); URINE RBC 20 - 25 /hpf (0-2); URINE WBC 0 - 2 /hpf (0-6)
[2018-01-09 21:12] LABS: ACETAMINOPHEN < 10.0 ug/ml (10.0-20.0); SALICYLATE < 1 mg/dL (2.0-20.0)
[2018-01-09 21:23] LABS: BARBITURATES, UR NEGATIVE (NEGATIVE); BENZODIAZEPINES, UR NEGATIVE (NEGATIVE); OPIATES, UR NEGATIVE (NEGATIVE); PHENCYCLIDINE, UR NEGATIVE (NEGATIVE)
[2018-01-09 21:37] LABS: ALB/GLOB RATIO 1.3 (1.1-1.8); ALBUMIN 3.8 g/dL (3.0-4.8); ALT/SGPT 24 U/L (7-56); AST/SGOT 21 U/L (14-36); BLOOD UREA NITROGEN 12 mg/dL (7-21); CALCIUM 8.5 mg/dL (8.4-10.5); GFR AFRICAN-AMERICAN > 60; GFR NON-AFRICAN AMERICAN > 60
[2018-01-09] MEDS ORDERED: Potassium Chloride 20 mEq ER Tab PO STA (21:40)
[2018-01-09 23:38] VITALS: O2SAT 100
[2018-01-10] MEDS ORDERED: Alum-Mag Hydrox-Simethicone Susp (30 mL) PO PRN (03:12)
[2018-01-10] MEDS ORDERED: Magnesium Hydroxide Susp 30 ml UD PO PRN (03:12)
--- NOTE | 2018-01-10 04:33 | PCM.BM ---
<George Gonzalez - Last Filed: 01/10/18 04:30> Treatment Plan Problems - Problems identified on initial assessmt Auditory hallucinations Date Initiated: 01/09/18 Time Initiated: 22:00 Assessment reference: NA Status: Active Sad Mood Date Initiated: 01/10/18 Time Initiated: 04:34 Assessment reference: NA Status: Active Treatment assets and liabiliti Patient Assests: adapts well, cooperative, educated, motivated, resourceful, self-reliant, ADL independent, negotiates basic needs, cognitively intact Patient Liabilities: relationship conflicts - Milieu Protocol Maintain good personal hygiene: daily Encourage regular showers, daily Remind patient to perform daily oral care, daily Assist patient to perform ADL's Maintain personal safety: daily Educate patient to report safety concerns to staff, daily Monitor environment for contraband/sharps Medication safety: Monitor for expected outcome, potential side effects: daily, Assess barriers to learning: daily, Assess readiness for medication education: daily Family Contact Family involvement: Patient does not wish Family/SO involvement - Goals for Treatment Patient goals for treatment: I want my medications to be adjusted since i have not simi compliant Discharge/Continuing Care - Education Needs Education Needs: Patient Medication, Patient Diagnosis/Disease Process, Patient Coping Skills, Patient Anger Management skills, Patient Activities of Daily Living - Discharge Discharge Criteria: Tolerates medication w/o severe side effects, Free of Suicidal thoughts <Aaron Monte - Last Filed: 01/10/18 11:11> - Diagnosis (1) Schizoaffective disorder Status: Acute Interventions: Seroquel 100 mg po AM + HS for paranoia and disorganization Depakote 500 mg po AM + HS for mood control, VPA level <10 on 01/10/18 Klonopin 1 mg AM + HS for anxiety and mood control Cogentin 1 mg po bid for EPS prophylaxis Topamax 25/25/50, off label for mood control Geodon 20 mg po/IM q6 prn: agitation 01/10/18 11:11 <Jordyn Portillo - Last Filed: 01/11/18 15:35> Treatment Plan Problems - Problems identified on initial assessmt Auditory hallucinations Date Initiated: 01/09/18 Time Initiated: 22:00 Assessment reference: NA Status: Active Sad Mood Date Initiated: 01/10/18 Time Initiated: 04:34 Assessment reference: NA Status: Active Ineffective Impulse Control Date Initiated: 01/11/18 Time Initiated: 12:20 Assessment reference: NA Status: Active Priority: 1 Depressive Symptoms Date Initiated: 01/11/18 Time Initiated: 12:20 Assessment reference: NA Status: Active Priority: 2 Agitated Behavior Date Initiated: 01/11/18 Time Initiated: 12:21 Assessment reference: NA Status: Active Priority: 3 Medication Nonadherence Date Initiated: 01/11/18 Time Initiated: 12:21 Assessment reference: NA Status: Active Priority: 4 Ineffective Management of Therapeutic Regimen Date Initiated: 01/11/18 Time Initiated: 12:21 Assessment reference: NA Status: Active Priority: 5 Family Contact Family involvement: Famliy/SO not involved <Katherine Moran - Last Filed: 01/11/18 15:51>
[2018-01-10 07:41] LABS: BLOOD UREA NITROGEN 10 mg/dL (7-21); CALCIUM 8.8 mg/dL (8.4-10.5); GFR AFRICAN-AMERICAN > 60; GFR NON-AFRICAN AMERICAN > 60; HDL CHOLESTEROL 38 mg/dL (29-60)
[2018-01-10 07:52] LABS: LDL CHOLESTEROL 107 mg/dL (0-129)
--- NOTE | 2018-01-10 09:40 | CARD ---
APPROVED REPORT EKG Measurement Heart [id number] <Conclusion> Normal sinus rhythm NSSTW changes
--- NOTE | 2018-01-10 10:55 | CP.PCM.PN ---
Subjective - Date & Time of Evaluation Date of Evaluation: 01/10/18 Time of Evaluation: 10:30 - Subjective Subjective: Code [place] Note 37 F with a PMHx of CAD, HLD, HTN, Schizophrenia, bipolar disorder, and asthma admitted for depression. Pt has been non-compliant with her medications at home and has been refusing medications since admission. As per nursing staff, pt was disruptive earlier this morning, however was able to be reasoned with to refrain from being disruptive to the staff and other patients. Pt was cooperative, however still refusing medications, for a few hours. She however started to become increasingly more disruptive as time went on leading to a code de la fuente being called. Pt was screaming and non-cooperative. Geodon 20mg and ativan 2mg were ordered and eventually administered and the patient becoming less combative. Pt had been placed in the seclusion room for the time being for patient safety. Objective - Vital Signs/Intake and Output Vital Signs (last 24 hours): Temp Pulse Resp BP Pulse Ox 98.7 F 88 18 118/76 100 01/09/18 19:53 01/09/18 23:20 01/10/18 03:24 01/09/18 23:20 01/09/18 23:20 - Medications Medications: Current Medications Acetaminophen (Tylenol 325mg Tab) 650 mg PO Q6 PRN PRN Reason: Pain, Mild (1-3) Al Hydrox/Mg Hydrox/Simethicone (Maalox Plus 30 Ml) 30 ml PO DAILY PRN PRN Reason: Dyspepsia Clonazepam (Klonopin) 0.5 mg PO AMHS LEEROY PRN Reason: Protocol Divalproex Sodium (Depakote Dr(*Bid*)) 500 mg PO HS LEEROY Lorazepam (Ativan) 2 mg PO Q6H PRN; Protocol PRN Reason: Agitation Lorazepam (Ativan) 2 mg IM Q6H PRN; Protocol PRN Reason: Agitation Magnesium Hydroxide (Milk Of Magnesia) 30 ml PO DAILY PRN PRN Reason: Constipation Quetiapine Fumarate (Seroquel) 100 mg PO AMHS LEEROY PRN Reason: Protocol Topiramate (Topamax) 50 mg PO AMHS LEEROY PRN Reason: Protocol Ziprasidone (Geodon Inj) 20 mg IM Q6H PRN; Protocol PRN Reason: Agitation Ziprasidone (Geodon Cap) 20 mg PO Q6H PRN; Protocol PRN Reason: Agitation - Labs Labs: 01/10/18 07:00
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
[2018-01-10] MEDS: Pantoprazole 40 mg EC Tab PO SCH (16:07)
[2018-01-10] MEDS: Metoprolol Succinate 25 mg XL Tab PO SCH (16:07)
[2018-01-10] MEDS: Divalproex 500 mg DR(BID formulation) PO SCH (21:52)
[2018-01-10] MEDS ORDERED: Divalproex 500 mg DR(BID formulation) PO SCH (22:00)
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
[2018-01-11] MEDS: Pantoprazole 40 mg EC Tab PO SCH ×2 (07:20→17:35)
[2018-01-11] MEDS ORDERED: Metoprolol Succinate 25 mg XL Tab PO SCH (08:00)
[2018-01-11] MEDS: Metoprolol Succinate 25 mg XL Tab PO SCH (09:28)
[2018-01-11 11:30] VITALS: RESP 20
--- NOTE | 2018-01-11 12:22 | PCM.BM ---
Treatment Plan Problems - Problems identified on initial assessmt Auditory hallucinations Date Initiated: 01/09/18 Time Initiated: 22:00 Assessment reference: NA Status: Active Sad Mood Date Initiated: 01/10/18 Time Initiated: 04:34 Assessment reference: NA Status: Active Ineffective Impulse Control Date Initiated: 01/11/18 Time Initiated: 12:20 Assessment reference: NA Status: Active Priority: 1 Depressive Symptoms Date Initiated: 01/11/18 Time Initiated: 12:20 Assessment reference: NA Status: Active Priority: 2 Agitated Behavior Date Initiated: 01/11/18 Time Initiated: 12:21 Assessment reference: NA Status: Active Priority: 3 Medication Nonadherence Date Initiated: 01/11/18 Time Initiated: 12:21 Assessment reference: NA Status: Active Priority: 4 Ineffective Management of Therapeutic Regimen Date Initiated: 01/11/18 Time Initiated: 12:21 Assessment reference: NA Status: Active Priority: 5 Treatment assets and liabiliti Patient Assests: adapts well, cooperative, educated, motivated, resourceful, self-reliant, ADL independent, negotiates basic needs, cognitively intact Patient Liabilities: relationship conflicts - Milieu Protocol Maintain good personal hygiene: daily Encourage regular showers, daily Remind patient to perform daily oral care, daily Assist patient to perform ADL's Maintain personal safety: daily Educate patient to report safety concerns to staff, daily Monitor environment for contraband/sharps Medication safety: Monitor for expected outcome, potential side effects: daily, Assess barriers to learning: daily, Assess readiness for medication education: daily Milieu Narrative: * grp, milieu, supportive tx * Seroquel 100 mg po AM + HS for paranoia and disorganization * Depakote 500 mg po AM + HS for mood control, VPA level <10 on 01/10/18 * Klonopin 1 mg AM + HS for anxiety and mood control * Cogentin 1 mg po bid for EPS prophylaxis * Topamax 25/25/50, off label for mood control * Geodon 20 mg po/IM q6 prn: agitation * Medical consult pending * Vitals reviewed and noted below: 01/09/18 01/09/18 19:53 23:20 Temperature 98.7 F Pulse Rate 100 H 88 Respiratory 16 19 Rate Blood Pressure 121/78 118/76 ER LABS AND STUDIES 01/10/18 01:23 Potassium was repleted in ED. PT was medically cleared for psych evaluation. EKG NSR @82bpm 01/09/18 20:25: Alcohol, Quantitative < 10 01/09/18 20:25: Salicylates < 1 L, Acetaminophen < 10.0 L 01/09/18 20:25: Urine Opiates Screen Negative, Urine Methadone Screen Negative, Ur Barbiturates Screen Negative, Ur Phencyclidine Scrn Negative, Ur Amphetamines Screen Negative, U Benzodiazepines Scrn Negative, U Oth Cocaine Metabols Negative, U Cannabinoids Screen Negative 01/09/18 20:25: Sodium 144, Potassium 3.0 L, Chloride 114 H, Carbon Dioxide 18 L , Anion Gap 15, BUN 12, Creatinine 0.6 L, Est GFR ( Amer) > 60, Est GFR ( Non-Af Amer) > 60, Random Glucose 93, Calcium 8.5, Total Bilirubin 0.1 L, AST 21 , ALT 24, Alkaline Phosphatase 75, Total Protein 6.8, Albumin 3.8, Globulin 3.0 , Albumin/Globulin Ratio 1.3 01/09/18 20:25: Urine Color Yellow, Urine Appearance Clear, Urine pH 6.0, Ur Specific [place] <= 1.005, Urine Protein Negative, Urine Glucose (UA) Negative, Urine Ketones Negative, Urine Blood Large H, Urine Nitrate Negative, Urine Bilirubin Negative, Urine Urobilinogen 0.2, Ur Leukocyte Esterase Negative, Urine RBC 20 - 25, Urine WBC 0 - 2, Ur Epithelial Cells 4 - 5, Urine Bacteria Mod 01/09/18 20:25: WBC 7.1 D, RBC 4.17, Hgb 11.1 L D, Hct 33.1 L, MCV 79.4 L, MCH 26.6, MCHC 33.5, RDW 14.6 H, Plt Count 298, MPV 8.5, Gran % 66.3, Lymph % (Auto ) 25.2, [place] % (Auto) 6.7 H, Eos % (Auto) 1.4 L, Baso % (Auto) 0.4, Gran # 4.67 , Lymph # (Auto) 1.8, Scott # (Auto) 0.5, Eos # (Auto) 0.1, Baso # (Auto) 0.03 [facility] 01/10/18 01/10/18 01/10/18 07:00 07:00 07:00 Sodium 144 Potassium 3.6 Chloride 114 H Carbon Dioxide 19 L Anion Gap 15 BUN 10 Creatinine 0.6 L Random Glucose 100 Calcium 8.8 Triglycerides 99 Cholesterol 167 LDL Cholesterol Direct 107 HDL Cholesterol 38 TSH 3rd Generation 2.83 Valproic Acid < 10 L Family Contact Family involvement: Patient does not wish Family/SO involvement - Goals for Treatment Patient goals for treatment: I want my medications to be adjusted since i have not simi compliant Discharge/Continuing Care - Education Needs Education Needs: Patient Medication, Patient Diagnosis/Disease Process, Patient Coping Skills, Patient Anger Management skills, Patient Activities of Daily Living - Discharge Discharge Criteria: Tolerates medication w/o severe side effects, Free of Suicidal thoughts - Treatment Team Participation Patient/Family/SO Statement: * grp, milieu, supportive tx * Seroquel 100 mg po AM + HS for paranoia and disorganization * Depakote 500 mg po AM + HS for mood control, VPA level <10 on 01/10/18 * Klonopin 1 mg AM + HS for anxiety and mood control * Cogentin 1 mg po bid for EPS prophylaxis * Topamax 25/25/50, off label for mood control * Geodon 20 mg po/IM q6 prn: agitation * Medical consult pending * Vitals reviewed and noted below: 01/09/18 01/09/18 19:53 23:20 Temperature 98.7 F Pulse Rate 100 H 88 Respiratory 16 19 Rate Blood Pressure 121/78 118/76 ER LABS AND STUDIES 01/10/18 01:23 Potassium was repleted in ED. PT was medically cleared for psych evaluation. EKG NSR @82bpm 01/09/18 20:25: Alcohol, Quantitative < 10 01/09/18 20:25: Salicylates < 1 L, Acetaminophen < 10.0 L 01/09/18 20:25: Urine Opiates Screen Negative, Urine Methadone Screen Negative, Ur Barbiturates Screen Negative, Ur Phencyclidine Scrn Negative, Ur Amphetamines Screen Negative, U Benzodiazepines Scrn Negative, U Oth Cocaine Metabols Negative, U Cannabinoids Screen Negative 01/09/18 20:25: Sodium 144, Potassium 3.0 L, Chloride 114 H, Carbon Dioxide 18 L , Anion Gap 15, BUN 12, Creatinine 0.6 L, Est GFR ( Amer) > 60, Est GFR ( Non-Af Amer) > 60, Random Glucose 93, Calcium 8.5, Total Bilirubin 0.1 L, AST 21 , ALT 24, Alkaline Phosphatase 75, Total Protein 6.8, Albumin 3.8, Globulin 3.0 , Albumin/Globulin Ratio 1.3 01/09/18 20:25: Urine Color Yellow, Urine Appearance Clear, Urine pH 6.0, Ur Specific [place] <= 1.005, Urine Protein Negative, Urine Glucose (UA) Negative, Urine Ketones Negative, Urine Blood Large H, Urine Nitrate Negative, Urine Bilirubin Negative, Urine Urobilinogen 0.2, Ur Leukocyte Esterase Negative, Urine RBC 20 - 25, Urine WBC 0 - 2, Ur Epithelial Cells 4 - 5, Urine Bacteria Mod 01/09/18 20:25: WBC 7.1 D, RBC 4.17, Hgb 11.1 L D, Hct 33.1 L, MCV 79.4 L, MCH 26.6, MCHC 33.5, RDW 14.6 H, Plt Count 298, MPV 8.5, Gran % 66.3, Lymph % (Auto ) 25.2, [place] % (Auto) 6.7 H, Eos % (Auto) 1.4 L, Baso % (Auto) 0.4, Gran # 4.67 , Lymph # (Auto) 1.8, Scott # (Auto) 0.5, Eos # (Auto) 0.1, Baso # (Auto) 0.03 [facility] 01/10/18 01/10/18 01/10/18 07:00 07:00 07:00 Sodium 144 Potassium 3.6 Chloride 114 H Carbon Dioxide 19 L Anion Gap 15 BUN 10 Creatinine 0.6 L Random Glucose 100 Calcium 8.8 Triglycerides 99 Cholesterol 167 LDL Cholesterol Direct 107 HDL Cholesterol 38 TSH 3rd Generation 2.83 Valproic Acid < 10 L
[2018-01-11] MEDS: Divalproex 500 mg DR(BID formulation) PO SCH ×2 (14:19→21:34)
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
[2018-01-11] MEDS ORDERED: Metoprolol Succinate 25 mg XL Tab PO STA (16:30)
[2018-01-12] MEDS: Pantoprazole 40 mg EC Tab PO SCH (06:22)
[2018-01-12 06:43] VITALS: BP 90/52; PULSE 78; TEMP 97.5
[2018-01-12] MEDS ORDERED: Metoprolol Succinate 25 mg XL Tab PO SCH (08:00)
[2018-01-12] MEDS: Divalproex 500 mg DR(BID formulation) PO SCH (09:01)
--- NOTE | 2018-01-12 12:52 | PCM.PYCHDC ---
Mental Status Examination - Mental Status Examination Orientation: Person, Place, Situation, Time Memory: Intact Mood: Neutral Affect: Constricted (but more reactive) Speech: Appropriate (but at times over productive, not pressured) Attention: Poor (baseline, but improved) Concentration: Poor (baseline, but improved) Association: Loose (baseline) Fund of Knowledge: Poor (baseline) Formal Thought Process: Paranoia (chronic, "nobody likes me") Description of patient's judgement and insight: Pt has improved insight into mental and medical illness, pt was compliant with medications and unit rules and regulations, pt was going to groups, was calm, cooperative, socially appropriate, no behavioral incidents, no agitation, no aggression. Psychotic Thoughts and Behaviors: Pt denied v/a/t hallucinations, denied paranoid ideation, pt does not appear to be psychotic, and thought process is goal directed. Suicidal Ideation: No Current Homicidal Ideation?: No Plan: pt adamantly denied thoughts of harming self or others denied intent or plan. Discharge Summary - Discharge Note Reason for Hospitalization: paranoia, depression, inability to function due to noncompliance with medications Psychiatric History (includes Medical, Family, Personal Hx): long h/o mental illness, schizoaffective disorder Laboratory Data: 01/09/18 20:25 01/10/18 07:00 Lab Results 01/10/18 07:00: Valproic Acid < 10 L 01/10/18 07:00: TSH 3rd Generation 2.83 01/10/18 07:00: Hemoglobin A1c 5.7 01/10/18 07:00: Sodium 144, Potassium 3.6, Chloride 114 H, Carbon Dioxide 19 L, Anion Gap 15, BUN 10, Creatinine 0.6 L, Est GFR ( Amer) > 60, Est GFR ( Non-Af Amer) > 60, Random Glucose 100, Calcium 8.8, Triglycerides 99, Cholesterol 167, LDL Cholesterol Direct 107, HDL Cholesterol 38 01/09/18 20:25: Alcohol, Quantitative < 10 01/09/18 20:25: Salicylates < 1 L, Acetaminophen < 10.0 L 01/09/18 20:25: Urine Opiates Screen Negative, Urine Methadone Screen Negative, Ur Barbiturates Screen Negative, Ur Phencyclidine Scrn Negative, Ur Amphetamines Screen Negative, U Benzodiazepines Scrn Negative, U Oth Cocaine Metabols Negative, U Cannabinoids Screen Negative 01/09/18 20:25: Sodium 144, Potassium 3.0 L, Chloride 114 H, Carbon Dioxide 18 L , Anion Gap 15, BUN 12, Creatinine 0.6 L, Est GFR ( Amer) > 60, Est GFR ( Non-Af Amer) > 60, Random Glucose 93, Calcium 8.5, Total Bilirubin 0.1 L, AST 21 , ALT 24, Alkaline Phosphatase 75, Total Protein 6.8, Albumin 3.8, Globulin 3.0 , Albumin/Globulin Ratio 1.3 01/09/18 20:25: Urine Color Yellow, Urine Appearance Clear, Urine pH 6.0, Ur Specific [place] <= 1.005, Urine Protein Negative, Urine Glucose (UA) Negative, Urine Ketones Negative, Urine Blood Large H, Urine Nitrate Negative, Urine Bilirubin Negative, Urine Urobilinogen 0.2, Ur Leukocyte Esterase Negative, Urine RBC 20 - 25, Urine WBC 0 - 2, Ur Epithelial Cells 4 - 5, Urine Bacteria Mod 01/09/18 20:25: WBC 7.1 D, RBC 4.17, Hgb 11.1 L D, Hct 33.1 L, MCV 79.4 L, MCH 26.6, MCHC 33.5, RDW 14.6 H, Plt Count 298, MPV 8.5, Gran % 66.3, Lymph % (Auto ) 25.2, Dickson % (Auto) 6.7 H, Eos % (Auto) 1.4 L, Baso % (Auto) 0.4, Gran # 4.67 , Lymph # (Auto) 1.8, Dickson # (Auto) 0.5, Eos # (Auto) 0.1, Baso # (Auto) 0.03 Vital Signs Temp Pulse Resp BP Pulse Ox 01/12/18 06:42 97.5 F L 78 20 90/52 L 01/11/18 17:34 100 H 121/88 01/11/18 15:00 100 H 121/88 01/11/18 07:00 98.1 F 84 20 119/70 01/10/18 03:24 18 01/09/18 23:20 88 19 118/76 100 01/09/18 19:53 98.7 F 100 H 16 121/78 97 Consultations:: List each consultation separately and include: 1. Reason for request. 2. Findings. 3. Follow-up Consultations: pt was seen by medical team for HTN see notes for more detailed information Summary of Hospital Course include:: 1. Description of specific treatment plan utilized for patients during their course of treatmen. 2. Summarize the time- course for resolution of acute symptoms and/or regressed behaviors. 3. Describe issues identified and worked on during hospitalization. 4. Describe medication utilized. 5. Describe medical problems identified and treated. 6. Reassessment of suicide risk Summary of Hospital Course: Patient is 37 yo (but ) female with long h/o schizoaffective disorder, multiple psychiatric admissions in the past, most recently hospitalized at [facility] a few months ago, and [facility] in 05/2017, twice in 04/2017 and 01/2017, who presented to ER requesting admission for symptoms of depression, paranoia and hallucinations in context of noncompliance with medications, similar to her prior admissions. Patient has a history of being difficult to manage on the psychiatric unit. During her 05/2017 [facility] admission, patient pt was extremely paranoid, loud, accusatory and frequently swore at different staff members. She also became fixated and threatened one of the PCPs. Patient was evaluated and found not to be committable [facility]. Subsequently she discharged on her 48 hour letter. patient is very familiar to this keno writer / runner from them multiple admissions to the psychiatric inpatient unit, patient is very hard to manage at the unit due to paranoia and personality disorder, personality disorder in high extent was very hard to manage, pt has tendency of antagonizing staff, splitting staff, accusing. yesterday pt needed to be medicated IM because pt was not able to calm down and was in danger to self and others. as per report for the past 24 hrs pt presented herself well, had a good night sleep, attended groups, no agitation, no aggression. today this keno writer / runner had a prolong conversation with pt, pt presented very well, at times pt was making statements like "nobody likes me", but pt was receptive to supportive therapy. pt is particular about her medications, acknowledged that she was not taking meds as prescribed, pt said "I know it it wrong, now I will take everything as I supposed to". this keno writer / runner educated about all meds, risk/benefits/alternatives discussed. pt reported that she feels better, requested discharge because she is worried about her cat and pt said she wants to help her mother with her appointments (pt 's mother has h/o autoimmune disease). as per treatment team pt deems to be ready for discharge, moreover pt does not want to take increased doses of medications, which is pt's right. [facility] pharmacy was faxed over her meds: Cogentin 1 mg 8 AM and 1 PM Seroquel 100 mg 8 PM Klonopin 1 mg 8 AM and 1 PM Ambien 10 mg a8 PM Metoprolol 12.5 mg 8 AM and 1 PM Topamax 25 mg daily at 8 AM [id number] mg at 1 PM Topamax 100 mg at 8 PM patient reported that she tolerates medications well, no side effects observed or reported, aims 0, no EPS. Overall patient reached her maximum effect from acute hospitalization, requested to be discharged, patient is not agitated, less psychotic, was participating in groups, was compliant with the medications she is supposed to take. At the time of the discharge pt denied been depressed, denied thoughts of harming self or others, less psychotic, pt is guarded at times, chronically paranoid, but with much improvement, denied been anxious, pt is not in imminent danger to self or others, will be following up at outpatient clinic "[facility]", pt said she has an appt on January 18, information about follow up appointment, time and address provided to the pt, it is patient responsibility to follow up with outpatient clinic, PMD as well as specialists ( see SW note for more detailed information). In case pt will need to obtain results of studies pending at discharge pt was provided with contact information of Psychiatric Inpatient unit [phone] as well as Medical Record Department [phone]. Patient denied using drugs, denied drinking alcohol pt was provided with prescriptions for all of medications (please see medication reconciliation form) Pt was educated about safety plan in case of worsening of symptoms or in case of suicidal or homicidal ideation call 911 or go to the nearest ER, also was educated to take meds as prescribed and stay away from drugs, pt verbalized understanding. - Diagnosis (1) Schizoaffective disorder Current Visit: Yes Status: Chronic Priority: High (2) Borderline personality disorder Current Visit: No Status: Chronic Priority: High - Final Diagnosis (DSM 5) Condition upon Discharge: IMPROVED Disposition: HOME/ ROUTINE Follow-up Treatment Plan: At the time of the discharge pt denied been depressed, denied thoughts of harming self or others, less psychotic, pt is guarded at times, chronically paranoid, but with much improvement, denied been anxious, pt is not in imminent danger to self or others, will be following up at outpatient clinic "[facility] the [facility]", pt said she has an appt on January 18, information about follow up appointment, time and address provided to the pt, it is patient responsibility to follow up with outpatient clinic, PMD as well as specialists ( see SW note for more detailed information). In case pt will need to obtain results of studies pending at discharge pt was provided with contact information of Psychiatric Inpatient unit [phone] as well as Medical Record Department [phone]. Patient denied using drugs, denied drinking alcohol pt was provided with prescriptions for all of medications (please see medication reconciliation form) Pt was educated about safety plan in case of worsening of symptoms or in case of suicidal or homicidal ideation call 911 or go to the nearest ER, also was educated to take meds as prescribed and stay away from drugs, pt verbalized understanding. Prescriptions/Medication Reconciliation: Benztropine [Cogentin] 1 mg PO 0800,1999 #30 tab clonazePAM [clonAZEPAM] 1 mg PO 0800,1300 #30 tab Metoprolol Succinate XL [Toprol XL] 12.5 mg PO 0800,1300 #14 tab Pantoprazole [Protonix EC Tab] 40 mg PO 0600,1600 #14 ect QUEtiapine [Seroquel] 100 mg PO 1999 #14 tab Topiramate [Topamax] 100 mg PO 1999 #14 tab Topiramate [Topamax] 50 mg PO 1300 #14 tab Topiramate [Topamax] 25 mg PO 0800 #14 tab Zolpidem [Ambien] 10 mg PO 1999 PRN #14 tab PRN Reason: Insomnia - Smoking Cessation Smoking Cessation Medication prescribed: No Reason for not providing: pt denies smoking - Antipsychotic Medications Pt discharged on 2 or more routine antipsychotic medications: No
--- NOTE | 2018-01-12 14:20 | PN ---
DATE: 01/11/2018 SUBJECTIVE: The patient was seen and examined at bedtime on 01/11/2018, very anxious, restless, complaining about medicines, doses, timing; blaming psychiatrist, blaming primary care physician. Length of time discussion done, educated to her, tried to pull down medically, no nausea, vomiting or diarrhea. No hematuria or hematochezia. No swelling of the leg. No chest pain, no palpitation. No headache or dizziness. PHYSICAL EXAMINATION: VITAL SIGNS: Temperature 98.1, pulse 84, blood pressure 119/70, respiratory rate 20. HEENT: Head: Normocephalic, atraumatic. Eyes: PERRLA. Extraocular muscles intact. Conjunctivae clear. Nose patent. Mucous membrane moist. NECK: Supple. No carotid bruit. No JVD or thyromegaly. CHEST: Bilaterally symmetrical. HEART: S1 and S2 positive. LUNGS: Clear to auscultation. ABDOMEN: Soft. Bowel sounds positive. No organomegaly. EXTREMITIES: No edema. No cyanosis. NEUROLOGIC: The patient is awake and alert. Moving all four extremities. No focal deficit. MEDICATIONS: Ambien, Ativan, Cogentin, Geodon, clonazepam, Maalox, milk of magnesia, Protonix, Toprol, Tylenol. LABORATORY DATA: White blood cell is 7.1, hemoglobin 11.1, hematocrit 33.1, platelets 298. Sodium 144, potassium 3.6, BUN 10, creatinine 0.6. TSH 2.83. ASSESSMENT AND PLAN: Ms. Katherine Campbell is a 37-year-old female with anemia, stable; hyperchloremia, hematuria, looks like menstruating, history of hypertension, asthma, gastritis, bipolar, depression, schizophrenia, history of skin graft, came to emergency room for depression and anxiety, drug screen negative, looks like she has paranoia, history of coronary artery disease as per the patient. The patient is noncompliant with medication. Refusing medication , as nurses are giving. Psychiatry is on the case. Medically, the patient is stable. Psychiatrist is changing medication. I will sign off the case. Thank you for giving me chance to see the patient. If you need me again, re-consult please. I told nurse that I will sign off and if need me, call me back. Lexis Pulido MD MTDLissette
== END 2018-01-12 15:02 | disposition home or self-care (01) | DRG 430 ==
LOC: ED 18:45 → PSYC 23:17 → ED 23:39 → PSYC 23:40
PROVIDERS: ADMIT Psychiatry & Neurology Psychiatry; ATTEND Psychiatry & Neurology Psychiatry
PROC: GZ3ZZZZ Medication Management (ICD-10-PCS; principal; 2018-01-10)
DX: F25.9 Schizoaffective disorder, unspecified (principal); F60.3 Borderline personality disorder; Z91.14 Patient's other noncompliance with medication regimen; F41.9 Anxiety disorder, unspecified; J45.909 Unspecified asthma, uncomplicated; I10 Essential (primary) hypertension; I25.10 Atherosclerotic heart disease of native coronary artery without angina pectoris; E78.00 Pure hypercholesterolemia, unspecified; D64.9 Anemia, unspecified

== ENCOUNTER 2018-02-11 10:22 | Emergency (ER) | payer MEDICAID, OTHER ==
[2018-02-11 10:39] VITALS: BMI 25.0
[2018-02-11 11:02] VITALS: RESP 18
--- NOTE | 2018-02-11 11:06 | ED PDOC ---
Arrival/HPI - General Chief Complaint: Psychiatric Evaluation Time Seen by Provider: 02/11/18 10:28 Historian: Patient - History of Present Illness Narrative History of Present Illness (Text): 02/11/18 11:03 37yo female with history of bipolar, personality disorder who was bib EMS for psych evaluation. Per EMS patient told a call center that she will "kill herself and it will be they fault". The center called [facility] who went to her house and called the EMS that brought her to ED for psych evaluation. Patient however denies SI/HI, hallucination, any somatic complaint. Past Medical History - Provider Review Nursing Documentation Reviewed: Yes - Infectious Disease Hx of Infectious Diseases: None - Tetanus Immunization Tetanus Immunization: Unknown - Cardiac Hx Cardiac Disorders: Yes Hx Hypertension: Yes - Pulmonary Hx Respiratory Disorders: Yes Hx Asthma: Yes Hx Tuberculosis: No - Neurological Hx Neurological Disorder: No - HEENT Hx HEENT Disorder: No - Renal Hx Renal Disorder: No - Endocrine/Metabolic Hx Endocrine Disorders: No - Hematological/Oncological Hx Blood Disorders: Yes Hx Anemia: Yes - Integumentary Hx Dermatological Disorder: No - Musculoskeletal/Rheumatological Hx Musculoskeletal Disorders: No - Gastrointestinal Hx Gastrointestinal Disorders: Yes Hx Gastritis: Yes - Genitourinary/Gynecological Hx Genitourinary Disorders: No - Psychiatric Hx Bipolar Disorder: Yes Hx Depression: Yes Hx Schizophrenia: Yes Hx Substance Use: No - Surgical History Other/Comment: Skin Graft - Anesthesia Hx Anesthesia: Yes Hx Anesthesia Reactions: No Hx Malignant Hyperthermia: No - Suicidal Assessment Feels Threatened In Home Enviroment: No Family/Social History - Physician Review Nursing Documentation Reviewed: Yes Family/Social History: Unknown Family HX Smoking Status: Never Smoked Hx Alcohol Use: No Hx Substance Use: No Hx Substance Use Treatment: No Allergies/Home Meds Allergies/Adverse Reactions: Allergies diphenhydramine HCl [From Benadryl] Allergy (Verified 02/11/18 10:39) ANAPHYLAXIS FISH Allergy (Verified 02/11/18 10:39) RASH fluphenazine [From Prolixin] Allergy (Verified 02/11/18 10:39) ANAPHYLAXIS haloperidol [From Haldol] Adverse Reaction (Verified 02/11/18 10:39) SHORTNESS OF BREATH haloperidol lactate [From Haldol] Adverse Reaction (Verified 02/11/18 10:39) SHORTNESS OF BREATH seafood Allergy (Uncoded 02/11/18 10:39) RASH Review of Systems - Physician Review All systems were reviewed & negative as marked: Yes - Review of Systems Constitutional: Normal Eyes: Normal ENT: Normal Respiratory: Normal Cardiovascular: Normal Gastrointestinal: Normal Genitourinary Female: Normal Musculoskeletal: Normal Skin: Normal Neurological: Normal Endocrine: Normal Hemo/Lymphatic: Normal Psychiatric: Normal, Other (Psych evaluation) Physical Exam Vital Signs Reviewed: Yes Vital Signs Resp 02/11/18 11:01 18 Temperature: Afebrile Blood Pressure: Normal Pulse: Regular Respiratory Rate: Normal Appearance: Positive for: Well-Appearing, Non-Toxic, Comfortable Pain Distress: None Mental Status: Positive for: Alert and Oriented X 3 - Systems Exam Head: Present: Atraumatic, Normocephalic Pupils: Present: PERRL Extroacular Muscles: Present: EOMI Conjunctiva: Present: Normal Mouth: Present: Moist Mucous Membranes Neck: Present: Normal Range of Motion Respiratory/Chest: Present: Clear to Auscultation, Good Air Exchange. No: Respiratory Distress, Accessory Muscle Use Cardiovascular: Present: Regular Rate and Rhythm, Normal S1, S2. No: Murmurs Abdomen: No: Tenderness, Distention, Peritoneal Signs Back: Present: Normal Inspection Upper Extremity: Present: Normal Inspection. No: Cyanosis, Edema Lower Extremity: Present: Normal Inspection. No: Edema Neurological: Present: GCS=15, CN II-XII Intact, Speech Normal Skin: Present: Warm, Dry, Normal Color. No: Rashes Psychiatric: Present: Alert, Oriented x 3, Normal Insight, Normal Concentration Medical Decision Making ED Course and Treatment: 02/11/18 11:07 Pt was seen in ED by Dr. Castro and was cleared for discharge., She knows patient very well and states she is at her baseline. States patient have appointment with her Psychiatrist on March 04 and was advised to keep her appointment. she denies SI/HI, hallucination in ED. Disposition/Present on Arrival - Present on Arrival Any Indicators Present on Arrival: No History of DVT/PE: No History of Uncontrolled Diabetes: No Urinary Catheter: No History of Decub. Ulcer: No History Surgical Site Infection Following: None - Disposition Have Diagnosis and Disposition been Completed?: Yes Diagnosis: Schizoaffective disorder, bipolar type Disposition: HOME/ ROUTINE Disposition Time: 11:05 Patient Plan: Discharge Condition: STABLE Discharge Instructions (ExitCare): Schizoaffective Disorder
--- NOTE | 2018-02-12 06:14 | CON ---
DATE: 02/11/2018 HISTORY OF PRESENT ILLNESS: Patient is a 37-year-old female, history of schizoaffective disorder, most likely bipolar type. Patient also has severe borderline personality disorder, very hard to deal with. This verse writer is very familiar with this patient from the past psychiatric admission and consultation services on the medical side. Patient came to the hospital after patient's outpatient program called 05-29- because patient was making some suicidal threats over the phone. That is why police was involved and patient was brought in for evaluation. Patient was seen and examined today in the emergency room. This verse writer responded for a Code [place] because patient refused to have blood work. Patient appears to be emotionally labile, but based from the previous admission, this is the patient's baseline. Patient remember this verse writer by name. Patient knows the circumstances of her emergency room visits at this time. Patient said that she is overwhelmed that nobody is accepting her as intensive outpatient program. Patient reported that she University for outpatient program, but she was rejected. Patient acknowledged that she made the statement "my blood will be on your hands." Patient was not able to comprehend that this statement sounds very strong and outpatient program was concerned about her. Patient was fixated that she is not attending any day treatment program, which is true because no intensive outpatient program wants to accept the patient due to her sporadic, paranoid, borderline personality disorder, which is very difficult to deal with. Patient reported that she was sitting in her apartment having her coffee and all of the sudden police showed up in her apartment and asked her to follow them because of the statement she was making earlier. Patient reports that she is doing "the best I ever been." Patient reported feeling depressed, but feeling frustrated that she cannot have intensive outpatient program. Patient adamantly denied thoughts of harming herself or others. Patient reported that she is compliant with the medications, patient reported that she sees her psychiatrist at [facility] outpatient program and primary care physician, Dr. Pulido, on the regular basis. Patient reported that her next appointment with psychiatrist is on 03/04. Patient reported that she is compliant with the medication. Denied any side effects. None was observed or reported. Patient reported that she tolerates medications well. Denied any side effects. AIMS zero, APS, EPS none. MENTAL STATUS EXAMINATION: Patient appears to be emotional, which is expected. Intermittent eye contact. Speech was overproductive. Thought process circumstantial. Thought content, patient obviously presented to be with circumstantial and tangential thought process, but patient denied visual, auditory or tactile hallucinations. Denied paranoid ideations. Patient denied thoughts of harming herself or others. Denied intent or plan. Insight and judgment seems to be limited, but fair. Impulses are well controlled. IMPRESSION: As per history, schizoaffective disorder, multiple medical issues. PLAN: Patient refused to have a blood work because patient reported that her last appointment with her primary care physician, Dr. Pulido, was yesterday. Patient has tried to refuse blood work. Patient reported that she has followup appointment at [facility] on 03/04 with her psychiatrist. Patient adamantly denied thoughts of harming herself or others. Denied intents or plan. Patient might benefit from intensive outpatient program, but patient seems to be impulsive, chronic mental illness, very hard to deal with, not even one outpatient program will accept the patient due to her behavior. At the same time, patient deemed to be at her baseline of functioning. Patient pose no imminent danger to self or others. Of note, based on the previous psychiatric admissions, the longer patient stayed in the hospital, the sicker she becomes. This verse writer does not feel that at present moment, patient meets a criteria for psychiatric inpatient admission. At the same time, patient does not meet the criteria for [facility] screening process. Patient was advised not to make any threats if she did not mean to and also the patient was advised to come back to the hospital and she feels that she is in danger to self or others. Patient verbalized understanding. This verse writer will sign off. It took more than 45 minutes to take care of that patient, discussed with emergency room physician as well as PA's and nursing staff. Thank you very much for letting me participate in care of your patient. Gloria Steele MD
== END 2018-02-11 11:11 | disposition home or self-care (01) ==
LOC: ED 10:22
DX: F25.0 Schizoaffective disorder, bipolar type (principal)

== ENCOUNTER 2018-03-07 16:05 | Emergency (ER) | payer OTHER ==
[2018-03-07 16:16] VITALS: PULSE 72
--- NOTE | 2018-03-07 17:19 | ED PDOC ---
Arrival/HPI - General Chief Complaint: Dizziness/Lightheaded Time Seen by Provider: 03/07/18 16:17 Historian: Patient - History of Present Illness Narrative History of Present Illness (Text): 03/07/18 16:25 A 37 year old female, whose past medical history includes hypertension, asthma, depression, schizophrenia, and bipolar disorder, presents to the emergency department complaining of possible CO poisoning. Patient reports waking up this morning to find CO detector actively going off. Patient states her "roommate" deactivated the detector afterwards. Later on, patient went into the kitchen and found a lighted candle. States she began to not feel well and immediately called 911 due to concern of having CO poisoning. Notes she feels as though she will "pass out". Limited HPI and ROS due to patient being uncooperative. Patient at baseline has underlying personality disorder. Patient was last here in the ER for psychiatric evaluation due to threatening to commit suicide. No PMD Past Medical History - Provider Review Nursing Documentation Reviewed: Yes - Infectious Disease Hx of Infectious Diseases: None - Tetanus Immunization Tetanus Immunization: Unknown - Cardiac Hx Cardiac Disorders: Yes Hx Hypertension: Yes - Pulmonary Hx Respiratory Disorders: Yes Hx Asthma: Yes Hx Tuberculosis: No - Neurological Hx Neurological Disorder: No - HEENT Hx HEENT Disorder: No - Renal Hx Renal Disorder: No - Endocrine/Metabolic Hx Endocrine Disorders: No - Hematological/Oncological Hx Blood Disorders: Yes Hx Anemia: Yes - Integumentary Hx Dermatological Disorder: No - Musculoskeletal/Rheumatological Hx Musculoskeletal Disorders: No - Gastrointestinal Hx Gastrointestinal Disorders: Yes Hx Gastritis: Yes - Genitourinary/Gynecological Hx Genitourinary Disorders: No - Psychiatric Hx Bipolar Disorder: Yes Hx Depression: Yes Hx Schizophrenia: Yes Hx Substance Use: No - Surgical History Other/Comment: Skin Graft - Anesthesia Hx Anesthesia: Yes Hx Anesthesia Reactions: No Hx Malignant Hyperthermia: No - Suicidal Assessment Feels Threatened In Home Enviroment: No Family/Social History - Physician Review Nursing Documentation Reviewed: Yes Family/Social History: No Known Family HX Smoking Status: Never Smoked Hx Alcohol Use: No Hx Substance Use: No Hx Substance Use Treatment: No Allergies/Home Meds Allergies/Adverse Reactions: Allergies diphenhydramine HCl [From Benadryl] Allergy (Verified 03/07/18 16:18) ANAPHYLAXIS FISH Allergy (Verified 03/07/18 16:18) RASH fluphenazine [From Prolixin] Allergy (Verified 03/07/18 16:18) ANAPHYLAXIS haloperidol [From Haldol] Adverse Reaction (Verified 03/07/18 16:18) SHORTNESS OF BREATH haloperidol lactate [From Haldol] Adverse Reaction (Verified 03/07/18 16:18) SHORTNESS OF BREATH seafood Allergy (Uncoded 03/07/18 16:18) RASH Review of Systems - Review of Systems Systems not reviewed;Unavailable: Uncooperative Physical Exam Vital Signs Reviewed: Yes Vital Signs Temp Pulse Resp BP Pulse Ox 03/07/18 17:57 97.7 F 72 18 125/73 98 03/07/18 16:16 97.4 F L 72 16 128/73 100 Temperature: Afebrile Blood Pressure: Normal Pulse: Regular Respiratory Rate: Normal Appearance: Positive for: Well-Appearing Pain Distress: None Mental Status: Positive for: Alert and Oriented X 3 - Systems Exam Head: Present: Atraumatic, Normocephalic Pupils: Present: PERRL Extroacular Muscles: Present: EOMI Conjunctiva: Present: Normal Mouth: Present: Moist Mucous Membranes Neck: Present: Normal Range of Motion Respiratory/Chest: Present: Clear to Auscultation, Good Air Exchange. No: Respiratory Distress, Accessory Muscle Use Cardiovascular: Present: Regular Rate and Rhythm, Normal S1, S2. No: Murmurs Abdomen: No: Tenderness, Distention, Peritoneal Signs Back: Present: Normal Inspection Upper Extremity: Present: Normal Inspection. No: Cyanosis, Edema Lower Extremity: Present: Normal Inspection. No: Edema Neurological: Present: GCS=15, CN II-XII Intact, Speech Normal Skin: Present: Warm, Dry, Normal Color. No: Rashes Psychiatric: Present: Alert, Oriented x 3, Normal Insight, Normal Concentration Medical Decision Making ED Course and Treatment: 03/07/18 16:27 Impression: 37 year old female with concern about CO poisoning. No acute findings on physical exam. Plan: -- Arterial Blood Gas -- Reassess and disposition Prior Visits: Notes and results from previous visits were reviewed. Patient was last seen in the emergency department on 02/11/2018 for psychiatric evaluation. Patient was discharged home. Progress Notes: 03/07/18 17:30 Patient is refusing to have blood drawn in order to perform Carbon Monoxide testing. She is uncooperative at this time. Patient refuses to sign discharged forms. 03/07/18 17:57 Patient eloped. 03/07/18 18:00 Patient returned momentarily and was argumentative. 03/07/18 18:19 Leaving Against Medical Advice (AMA): The patient is choosing to leave against medical advice. I have personally explained to the patient that choosing to do so may result in permanent bodily harm or . I have discussed at great length that without further evaluation and monitoring there may be unforeseen circumstances and/or deterioration causing permanent bodily harm or as a result of their choice. The patient is alert, oriented, and shows the mental capacity to make clear decisions regarding the patients health care at this time. The patient continues to wish to leave against medical advice. In light of the patients decision to leave against medical advice, follow-up has been arranged and the patient is aware of the importance to following up as instructed. The patient has been advised that they should return to the emergency room immediately if they change their mind at any time, or if their condition begins to change or worsen in any way. - Scribe Statement The provider has reviewed the documentation as recorded by the Mai Rivas Provider Scribe Attestation: All medical record entries made by the Mai were at my direction and personally dictated by me. I have reviewed the chart and agree that the record accurately reflects my personal performance of the history, physical exam, medical decision making, and the department course for this patient. I have also personally directed, reviewed, and agree with the discharge instructions and disposition. Disposition/Present on Arrival - Present on Arrival Any Indicators Present on Arrival: No History of DVT/PE: No History of Uncontrolled Diabetes: No Urinary Catheter: No History of Decub. Ulcer: No History Surgical Site Infection Following: None - Disposition Have Diagnosis and Disposition been Completed?: Yes Diagnosis: Malaise Disposition: HOME/ ROUTINE Disposition Time: 18:10 Patient Plan: Other (AMA) Patient Problems: Current Active Problems Problem Status Onset Malaise Acute Condition: GOOD Additional Instructions: We can not diagnose carbon monoxide poisoning without a blood test. We can not give you IV fluids without an IV. Forms: [employer] ([place])
[2018-03-07 18:04] VITALS: BP 125/73; RESP 18; TEMP 97.7; O2SAT 98
== END 2018-03-07 18:15 | disposition left against medical advice (07) ==
LOC: ED 16:05
DX: R53.81 Other malaise (principal); I10 Essential (primary) hypertension; F20.9 Schizophrenia, unspecified

== ENCOUNTER 2018-07-19 22:46 | Inpatient (IN) | payer MEDICAID, OTHER ==
[2018-07-19 23:07] VITALS: BMI 29.2
[2018-07-20 01:15] LABS: PH,URINE 7.5 (4.7-8.0); URINE BILIRUBIN NEGATIVE (NEGATIVE); URINE BLOOD LARGE (NEGATIVE); URINE GLUCOSE (UA) NEGATIVE (NEGATIVE); URINE LEUKOCYTE ESTERASE MODERATE Leu/uL (NEGATIVE); URINE PROTEIN NEGATIVE mg/dL (<30 mg/dL); URINE UROBILINOGEN 0.2 E.U./dL (<1 E.U./dL)
[2018-07-20 01:16] LABS: URINE APPEARANCE SL CLOUDY (CLEAR); URINE COLOR YELLOW (YELLOW)
[2018-07-20 01:39] LABS: BARBITURATES, UR NEGATIVE (NEGATIVE); BENZODIAZEPINES, UR NEGATIVE (NEGATIVE); OPIATES, UR NEGATIVE (NEGATIVE); PHENCYCLIDINE, UR NEGATIVE (NEGATIVE)
[2018-07-20 01:50] LABS: URINE BACTERIA OCC (NEG); URINE HYALINE CAST 0 - 2 /hpf; URINE RBC 25 - 30 /hpf (0-2)
--- NOTE | 2018-07-20 02:06 | ED PDOC ---
Arrival/HPI - General Historian: Patient, EMS - History of Present Illness Narrative History of Present Illness (Text): 07/20/18 02:03 37yr old female with psychiatric history presents tonight brought in by ambulance after being found sitting outside. pt states she needs help. pt admits to drinking etoh daily. pt denies fever/chills. no trauma or injury. pt c/o depression and "not feeling right". pt is currently denying SI or HI. no cough. no abdominal pain. no other complaints. <Carolynn Brown - Last Filed: 07/20/18 02:08> <Baldo Ott - Last Filed: 07/27/18 20:47> - General Chief Complaint: Psychiatric Evaluation Time Seen by Provider: 07/19/18 23:21 Past Medical History - Provider Review Nursing Documentation Reviewed: Yes - Travel History Have you recently traveled outside [place] w/in the past 3 mons?: No - Infectious Disease Hx of Infectious Diseases: None - Tetanus Immunization Tetanus Immunization: Unknown - Cardiac Hx Hypertension: Yes - Pulmonary Hx Asthma: Yes - Neurological Hx Seizures: No - HEENT Hx HEENT Disorder: No - Renal Hx Renal Disorder: No - Endocrine/Metabolic Hx Endocrine Disorders: No - Hematological/Oncological Hx Anemia: Yes - Integumentary Hx Dermatological Disorder: No - Musculoskeletal/Rheumatological Hx Musculoskeletal Disorders: No - Gastrointestinal Hx Gastritis: Yes - Genitourinary/Gynecological Hx Sexually Transmitted Diseases: No - Psychiatric Hx Anxiety: Yes Hx Bipolar Disorder: Yes Hx Depression: Yes Hx Schizophrenia: Yes Hx Substance Use: No (DENIES) - Surgical History Other/Comment: Skin Graft - Anesthesia Hx Anesthesia: Yes Hx Anesthesia Reactions: No Hx Malignant Hyperthermia: No - Suicidal Assessment Feels Threatened In Home Enviroment: No <Carolynn Brown - Last Filed: 07/20/18 02:08> Family/Social History - Physician Review Nursing Documentation Reviewed: Yes Family/Social History: Unknown Family HX Smoking Status: Never Smoked Hx Alcohol Use: Yes Frequency of alcohol use: Daily Hx Substance Use: No (DENIES) Hx Substance Use Treatment: No <Carolynn Brown - Last Filed: 07/20/18 02:08> Allergies/Home Meds <Carolynn Brown - Last Filed: 07/20/18 02:08> <Baldo Ott - Last Filed: 07/27/18 20:47> Allergies/Adverse Reactions: Allergies diphenhydramine HCl [From Benadryl] Allergy (Verified 07/20/18 14:37) ANAPHYLAXIS FISH Allergy (Verified 07/20/18 14:37) RASH fluphenazine [From Prolixin] Allergy (Verified 07/20/18 14:37) ANAPHYLAXIS haloperidol [From Haldol] Adverse Reaction (Verified 07/20/18 14:37) SHORTNESS OF BREATH haloperidol lactate [From Haldol] Adverse Reaction (Verified 07/20/18 14:37) SHORTNESS OF BREATH seafood Allergy (Uncoded 07/20/18 14:37) RASH Review of Systems - Review of Systems Constitutional: absent: Fatigue, Fevers Respiratory: absent: SOB, Cough Cardiovascular: absent: Chest Pain, Palpitations Gastrointestinal: absent: Abdominal Pain, Constipation, Diarrhea, Nausea Genitourinary Female: absent: Dysuria, Frequency, Hematuria Musculoskeletal: absent: Arthralgias, Back Pain, Neck Pain Skin: absent: Rash, Pruritis Neurological: absent: Headache, Dizziness Psychiatric: Anxiety, Depression. absent: Suicidal Ideation <Carolynn Brown - Last Filed: 07/20/18 02:08> Physical Exam Vital Signs Reviewed: Yes Temperature: Afebrile Blood Pressure: Normal Pulse: Regular Respiratory Rate: Normal Appearance: Positive for: Well-Appearing, Non-Toxic, Comfortable Pain Distress: None Mental Status: Positive for: Alert and Oriented X 3 - Systems Exam Head: Present: Atraumatic Mouth: Present: Moist Mucous Membranes Neck: Present: Normal Range of Motion Respiratory/Chest: Present: Clear to Auscultation, Good Air Exchange. No: Respiratory Distress, Accessory Muscle Use Cardiovascular: Present: Regular Rate and Rhythm, Normal S1, S2. No: Murmurs Abdomen: No: Tenderness, Distention Back: Present: Normal Inspection Upper Extremity: Present: Normal ROM Lower Extremity: Present: Normal ROM Neurological: Present: GCS=15, Gait Normal Skin: Present: Warm, Dry, Normal Color. No: Rashes Psychiatric: Present: Alert, Oriented x 3 <Carolynn Brown - Last Filed: 07/20/18 02:08> Vital Signs Temp Pulse Resp BP Pulse Ox 07/20/18 05:43 97.8 F 71 18 96/66 L 100 07/20/18 02:27 97.8 F 81 18 123/61 100 07/19/18 23:55 98 F 79 18 112/57 L 99 <Baldo Ott - Last Filed: 07/27/18 20:47> Medical Decision Making ED Course and Treatment: 07/20/18 02:10 Patient is nontoxic well-appearing in no distress vital signs are stable. CBC CMP Tylenol Salicylate Alcohol level Urine drug screen wnl UA; + blood, + leukocytes, pt is currently menstrating. cxr: wnl ekg: pt requesting ativan for anxiety. keflex given for UTI. case signed out to dr ott pending PES evaluation. - Lab Interpretations Lab Results: Lab Results 07/19/18 23:55: Urine Opiates Screen Negative, Urine Methadone Screen Negative, Ur Barbiturates Screen Negative, Ur Phencyclidine Scrn Negative, Ur Amphetamines Screen Negative, U Benzodiazepines Scrn Negative, U Oth Cocaine Metabols Negative, U Cannabinoids Screen Negative 07/19/18 23:55: Urine Color Yellow, Urine Appearance Sl cloudy, Urine pH 7.5, Ur Specific [place] 1.010, Urine Protein Negative, Urine Glucose (UA) Negative, Urine Ketones Negative, Urine Blood Large H, Urine Nitrate Negative, Urine Bilirubin Negative, Urine Urobilinogen 0.2, Ur Leukocyte Esterase Moderate H, Urine RBC 25 - 30, Urine WBC 2 - 5, Ur Epithelial Cells 3 - 4, Urine Bacteria Occ, Hyaline Casts 0 - 2 - RAD Interpretation Radiology Orders: 07/19/18 23:39 CHEST PORTABLE [RAD] Stat <Carolynn Brown - Last Filed: 07/20/18 02:08> ED Course and Treatment: 07/20/18 05:54 Pt seen and evaluated by PES screener Sepideh, who discussed case with psychiatrist hyperion developer. Pt will be admitted to [facility] for schizoaffective disorder under Dr. Steele's service. Pt agreeable with plan. - Lab Interpretations Lab Results: 07/20/18 02:20 07/20/18 02:20 Lab Results 07/20/18 02:20: Alcohol, Quantitative < 10 07/20/18 02:20: Salicylates < 1 L, Acetaminophen < 10.0 L 07/20/18 02:20: Sodium 143, Potassium 3.6, Chloride 114 H, Carbon Dioxide 20 L, Anion Gap 13, BUN 8, Creatinine 0.5 L, Est GFR ( Amer) > 60, Est GFR (Non-Af Amer) > 60, Random Glucose 99, Calcium 8.7, Total Bilirubin 0.2, AST 19, ALT 24, Alkaline Phosphatase 78, Total Protein 6.7, Albumin 3.9, Globulin 2.8, Albumin/Globulin Ratio 1.4 07/20/18 02:20: WBC 9.7 D, RBC 4.26, Hgb 11.5 L, Hct 34.7 L, MCV 81.5, MCH 27.0, MCHC 33.1, RDW 13.6, Plt Count 312, MPV 8.2, Gran % 58.4, Lymph % (Auto) 32.5, [place] % (Auto) 6.6 H, Eos % (Auto) 1.9, Baso % (Auto) 0.6, Gran # 5.63, Lymph # (Auto) 3.1, [place] # (Auto) 0.6, Eos # (Auto) 0.2, Baso # (Auto) 0.06 07/19/18 23:55: Urine Opiates Screen Negative, Urine Methadone Screen Negative, Ur Barbiturates Screen Negative, Ur Phencyclidine Scrn Negative, Ur Amphetamines Screen Negative, U Benzodiazepines Scrn Negative, U Oth Cocaine Metabols Negative, U Cannabinoids Screen Negative 07/19/18 23:55: Urine Color Yellow, Urine Appearance Sl cloudy, Urine pH 7.5, Ur Specific [place] 1.010, Urine Protein Negative, Urine Glucose (UA) Negative, Urine Ketones Negative, Urine Blood Large H, Urine Nitrate Negative, Urine Bilirubin Negative, Urine Urobilinogen 0.2, Ur Leukocyte Esterase Moderate H, Urine RBC 25 - 30, Urine WBC 2 - 5, Ur Epithelial Cells 3 - 4, Urine Bacteria Occ, Hyaline Casts 0 - 2 - RAD Interpretation Radiology Orders: 07/19/18 23:39 CHEST PORTABLE [RAD] Stat - Medication Orders Current Medication Orders: Discontinued Medications Cephalexin Monohydrate (Keflex) 500 mg PO STAT STA; Protocol Stop: 07/20/18 02:12 Last Admin: 07/20/18 02:26 Dose: 500 mg Lorazepam (Ativan) 1 mg PO ONCE ONE; Protocol Stop: 07/20/18 02:06 Last Admin: 07/20/18 02:24 Dose: 1 mg <Baldo Ott - Last Filed: 07/27/18 20:47> - PA / PAYROLL DIRECTOR / Resident Statement / has reviewed & agrees with the documentation as recorded. <Baldo Ott - Last Filed: 07/27/18 20:47> Disposition/Present on Arrival - Present on Arrival Any Indicators Present on Arrival: No History of DVT/PE: No History of Uncontrolled Diabetes: No Urinary Catheter: No History of Decub. Ulcer: No History Surgical Site Infection Following: None <Carolynn Brown - Last Filed: 07/20/18 02:08> - Present on Arrival Any Indicators Present on Arrival: No - Disposition Have Diagnosis and Disposition been Completed?: Yes Disposition Time: 05:59 <Baldo Ott - Last Filed: 07/27/18 20:47> - Disposition Diagnosis: Schizoaffective disorder Disposition: HOSPITALIZED Condition: STABLE
[2018-07-20 02:27] VITALS: O2SAT 100
[2018-07-20 02:33] LABS: BASO # 0.06 K/mm3 (0.0-2.0); BASO % 0.6 % (0.0-3.0); EOS # 0.2 (0.0-0.7); EOS % 1.9 % (1.5-5.0); GRAN # 5.63 (1.4-6.5); GRAN % 58.4 % (50.0-68.0); HEMOGLOBIN 11.5 g/dL (12.0-16.0); LYMPH # 3.1 (1.2-3.4); LYMPH % 32.5 % (22.0-35.0); MEAN CELL VOLUME 81.5 fl (80.0-105.0); MEAN CORPUSCULAR HGB CONC 33.1 g/dl (31.0-37.0); MEAN PLATELET VOLUME 8.2 fl (7.0-11.0); MONO # 0.6 (0.1-0.6); MONO % 6.6 % (1.0-6.0); RBC 4.26 10^6/uL (3.5-6.1); RED CELL DISTRIBUTION WIDTH 13.6 % (11.5-14.5); WHITE BLOOD COUNT 9.7 10^3/ul (4.5-11.0)
[2018-07-20 02:54] LABS: ALB/GLOB RATIO 1.4 (1.1-1.8); ALBUMIN 3.9 g/dL (3.0-4.8); ALT/SGPT 24 U/L (7-56); AST/SGOT 19 U/L (14-36); BLOOD UREA NITROGEN 8 mg/dL (7-21); CALCIUM 8.7 mg/dL (8.4-10.5); GFR NON-AFRICAN AMERICAN > 60
[2018-07-20 02:55] LABS: ACETAMINOPHEN < 10.0 ug/ml (10.0-20.0); SALICYLATE < 1 mg/dL (2.0-20.0)
[2018-07-20 08:16] LABS: HDL CHOLESTEROL 37 mg/dL (29-60)
[2018-07-20 08:27] LABS: LDL CHOLESTEROL 102 mg/dL (0-129)
[2018-07-20 08:33] LABS: FREE T4 1.22 ng/dL (0.78-2.19)
[2018-07-20] MEDS ORDERED: Alum-Mag Hydrox-Simethicone Susp (30 mL) PO PRN (10:18)
[2018-07-20] MEDS ORDERED: Magnesium Hydroxide Susp 30 ml UD PO PRN (10:18)
[2018-07-20] MEDS: Multivitamin With Minerals Tab PO SCH (11:44)
--- NOTE | 2018-07-20 12:00 | RAD ---
Date of service: 07/20/2018 HISTORY: PEs COMPARISON: Chest radiographs 09/10/2017. FINDINGS: LUNGS: No active pulmonary disease. Improved inspiratory volume appreciated. PLEURA: No significant pleural effusion identified, no pneumothorax apparent. CARDIOVASCULAR: No aortic atherosclerotic calcification present OSSEOUS STRUCTURES: No significant abnormalities. VISUALIZED UPPER ABDOMEN: Normal. OTHER FINDINGS: None. IMPRESSION: No interval acute cardiopulmonary disease appreciated. Improved inspiratory volume appreciated.
[2018-07-20] MEDS ORDERED: FEXOFENADINE 180 MG PO SCH (12:45)
[2018-07-20] MEDS: Fluticasone Nasal 50 mcg/Spray NS SCH ×3 (13:46→23:50)
[2018-07-20] MEDS: FEXOFENADINE 180 MG PO SCH (13:46)
--- NOTE | 2018-07-20 14:30 | PCM.BM ---
Addendum entered and electronically signed by Jordyn Portillo LSW 07/23/18 15:25: Treatment Plan Problems - Problems identified on initial assessmt anxiety Date Initiated: 07/20/18 Time Initiated: 14:27 Assessment reference: NA Status: Active fear Date Initiated: 07/20/18 Time Initiated: 14:28 Assessment reference: NA Status: Active altered thought process Date Initiated: 07/20/18 Time Initiated: 14:30 Assessment reference: NA Status: Active panic attacks Date Initiated: 07/20/18 Time Initiated: 14:31 Assessment reference: NA Status: Active altered sleep pattern Date Initiated: 07/20/18 Time Initiated: 14:32 Assessment reference: NA Status: Active Original Note: Treatment Plan Problems - Problems identified on initial assessmt anxiety Date Initiated: 07/20/18 Time Initiated: 14:27 Assessment reference: NA Status: Active fear Date Initiated: 07/20/18 Time Initiated: 14:28 Assessment reference: NA Status: Active altered thought process Date Initiated: 07/20/18 Time Initiated: 14:30 Assessment reference: NA Status: Active panic attacks Date Initiated: 07/20/18 Time Initiated: 14:31 Assessment reference: NA Status: Active altered sleep pattern Date Initiated: 07/20/18 Time Initiated: 14:32 Assessment reference: NA Status: Active Treatment assets and liabiliti Patient Assests: adapts well, cooperative, educated, motivated, resourceful, self-reliant, ADL independent, negotiates basic needs, cognitively intact Patient Liabilities: live alone, poor support system, relationship conflicts - Milieu Protocol Maintain good personal hygiene: every shift Encourage regular showers, every shift Remind patient to perform daily oral care, every shift Assist patient to perform ADL's Conduct patient checks and document Observation sheet: Q15 minutes Maintain personal safety: every shift Educate patient to report safety concerns to staff, every shift Monitor environment for contraband/sharps Medication safety: Monitor for expected outcome, potential side effects: every shift, Assess barriers to learning: every shift, Assess readiness for medication education: every shift Discharge/Continuing Care - Education Needs Education Needs: Patient Medication, Patient Diagnosis/Disease Process, Patient Coping Skills, Patient Placement options, Patient Community resources, Patient Personal Hygiene/Grooming - Discharge Discharge Criteria: Tolerates medication w/o severe side effects, Free of Suicidal thoughts, Free of Homicidal thoughts, Free of paranoid thoughts, Free of agitation, Normal sleep pattern, Ability to care for self
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
[2018-07-21] MEDS: FEXOFENADINE 180 MG PO SCH (09:21)
[2018-07-21] MEDS: Multivitamin With Minerals Tab PO SCH (09:22)
[2018-07-21] MEDS: Fluticasone Nasal 50 mcg/Spray NS SCH ×2 (09:22→21:22)
--- NOTE | 2018-07-21 11:41 | CP.PCM.CON ---
<Chris Burrell - Last Filed: 07/21/18 15:56> History of Present Illness - History of Present Illness History of Present Illness: PGY-1 Medicine Consult Note for Dr. Jack Reason for consult: UTI Ms. Campbell is a 37 yo F with hx of schizoaffective disorder, borderline personality disorder, alcohol abuse brought in by ambulance after being found sitting outside, stating she "needs help", endorsing drinking alcohol daily. Medicine consulted for UTI management. Patient endorses urinary frequency but denies urgency or dysuria. She also complains of GERD-like symptoms, states that she has been diagnosed with GERD in the past but is not on any active treatment. No fevers/chills, suprapubic tenderness, abdominal pain, or vaginal discharge. ROS otherwise negative. Review of Systems - Constitutional Constitutional: absent: Chills, Fever, Headache - EENT Eyes: absent: Change in Vision - Cardiovascular Cardiovascular: absent: Chest Pain, Dyspnea, Dyspnea on Exertion, Palpitations - Respiratory Respiratory: absent: Cough, Dyspnea, Wheezing - Gastrointestinal Gastrointestinal: Cramping, Heartburn. absent: Abdominal Pain, Constipation, Diarrhea, Nausea, Vomiting - Genitourinary Genitourinary: Urinary Frequency. absent: Change in Urinary Stream, Dysuria, Flank Pain, Hematuria - Reproductive: Female Reproductive:Female: absent: Vaginal Discharge, Vaginal Odor - Musculoskeletal Musculoskeletal: Back Pain (chronic). absent: Deformity, Joint Swelling, Limited Range of Motion - Neurological Neurological: absent: Abnormal Gait, Abnormal Hearing - Psychiatric Psychiatric: As Per HPI Past Patient History - Infectious Disease Hx of Infectious Diseases: None - Tetanus Immunizations Tetanus Immunization: Unknown - Past Social History Smoking Status: Never Smoked - CARDIAC Hx Cardiac Disorders: No Hx Hypertension: Yes - PULMONARY Hx Tuberculosis: No - NEUROLOGICAL HX Cerebrovascular Accident: No Hx Seizures: No - HEENT Hx HEENT Problems: No - RENAL Hx Chronic Kidney Disease: No - ENDOCRINE/METABOLIC Hx Endocrine Disorders: No - HEMATOLOGICAL/ONCOLOGICAL Hx Cancer: No Hx Human Immunodeficiency Virus (HIV): No - INTEGUMENTARY Hx Dermatological Problems: No - MUSCULOSKELETAL/RHEUMATOLOGICAL Hx Musculoskeletal Disorders: No - GASTROINTESTINAL Hx Gastritis: Yes - GENITOURINARY/GYNECOLOGICAL Hx Sexually Transmitted Disorders: No - PSYCHIATRIC Hx Anxiety: Yes Hx Bipolar Disorder: Yes Hx Depression: Yes Hx Schizophrenia: Yes Hx Substance Use: No (DENIES) - SURGICAL HISTORY Other/Comment: Skin Graft - ANESTHESIA Hx Anesthesia: Yes Hx Anesthesia Reactions: No Hx Malignant Hyperthermia: No Meds Allergies/Adverse Reactions: Allergies Allergy/AdvReac Type Severity Reaction Status Date / Time diphenhydramine HCl Allergy ANAPHYLAXIS Verified 07/20/18 14:37 [From Benadryl] FISH Allergy RASH Verified 07/20/18 14:37 fluphenazine [From Prolixin] Allergy ANAPHYLAXIS Verified 07/20/18 14:37 haloperidol [From Haldol] AdvReac SHORTNESS Verified 07/20/18 14:37 OF BREATH haloperidol lactate AdvReac SHORTNESS Verified 07/20/18 14:37 [From Haldol] OF BREATH seafood Allergy RASH Uncoded 07/20/18 14:37 - Medications Medications: Current Medications Acetaminophen (Tylenol 325mg Tab) 650 mg PO Q4 PRN PRN Reason: Pain, moderate (4-7) Al Hydrox/Mg Hydrox/Simethicone (Maalox Plus 30 Ml) 30 ml PO DAILY PRN PRN Reason: Upset Stomach Benztropine Mesylate (Cogentin) 1 mg PO BID [facility] Last Admin: 07/21/18 09:22 Dose: 1 mg Cephalexin Monohydrate (Keflex) 500 mg PO Q12 [facility]; Protocol Stop: 07/23/18 23:59 Chlorpromazine (Thorazine) 50 mg PO Q6H PRN; Protocol PRN Reason: Agitation Chlorpromazine (Thorazine) 50 mg IM Q6H PRN; Protocol PRN Reason: Agitation Clonazepam (Klonopin) 0.5 mg PO 1300 [facility]; Protocol Last Admin: 07/20/18 13:17 Dose: 0.5 mg Clonazepam (Klonopin) 1 mg PO 2100 [facility]; Protocol Last Admin: 07/21/18 01:07 Dose: 1 mg Famotidine (Pepcid) 40 mg PO HS [facility] Fluticasone Propionate (Flonase) 1 actuation NS AMHS [facility] Last Admin: 07/21/18 09:22 Dose: 1 actuation Folic Acid (Folic Acid) 1 mg PO DAILY [facility] Last Admin: 07/21/18 09:21 Dose: 1 mg Home Med (Home Med) 1 unit PO DAILY [facility] Last Admin: 07/21/18 09:21 Dose: 1 unit Lorazepam (Ativan) 2 mg PO Q6H PRN; Protocol PRN Reason: Anxiety Last Admin: 07/20/18 11:44 Dose: 2 mg Magnesium Hydroxide (Milk Of Magnesia) 30 ml PO DAILY PRN PRN Reason: Constipation Montelukast Sodium (Singulair) 10 mg PO DAILY [facility] Last Admin: 07/21/18 09:21 Dose: 10 mg Multivitamins/Minerals (Therapeutic-M Tab) 1 tab PO 0800 [facility] Last Admin: 07/21/18 09:22 Dose: 1 tab Quetiapine Fumarate (Seroquel) 150 mg PO 2100 [facility]; Protocol Thiamine HCl (Vitamin B1 Tab) 100 mg PO DAILY [facility] Last Admin: 07/21/18 09:21 Dose: 100 mg Topiramate (Topamax) 100 mg PO 2100 [facility]; Protocol Last Admin: 07/21/18 01:08 Dose: 100 mg Topiramate (Topamax) 50 mg PO 0900,1300 [facility]; Protocol Last Admin: 07/21/18 09:21 Dose: 50 mg Zolpidem Tartrate (Ambien) 10 mg PO HS PRN; Protocol PRN Reason: Insomnia Physical Exam - Constitutional Appears: Non-toxic, No Acute Distress - Head Exam Head Exam: ATRAUMATIC, NORMAL INSPECTION, NORMOCEPHALIC - Eye Exam Eye Exam: EOMI, Normal appearance, PERRL Pupil Exam: NORMAL ACCOMODATION - ENT Exam ENT Exam: Mucous Membranes Moist, Normal Exam - Neck Exam Neck exam: Positive for: Full Rom, Normal Inspection - Respiratory Exam Respiratory Exam: Clear to Auscultation Bilateral, NORMAL BREATHING PATTERN. absent: Rales, Rhonchi, Wheezes, Respiratory Distress, Stridor - Cardiovascular Exam Cardiovascular Exam: REGULAR RHYTHM, +S1, +S2 - GI/Abdominal Exam GI & Abdominal Exam: Normal Bowel Sounds, Soft. absent: Distended, Firm, Guarding, Rebound, Rigid, Tenderness - Back Exam Back exam: NORMAL INSPECTION. absent: CVA tenderness (L), CVA tenderness (R) - Neurological Exam Neurological exam: Alert, CN II-XII Intact, Normal Gait, Oriented x3 - Psychiatric Exam Psychiatric exam: Normal Affect, Normal Mood - Skin Skin Exam: Dry, Intact, Normal Color, Warm Results - Vital Signs Recent Vital Signs: Last Vital Signs Temp 97.5 F L 07/20/18 06:59 Pulse 85 07/20/18 10:00 Resp 21 10/23/18 10:00 BP 116/83 07/20/18 06:59 Pulse Ox 100 07/20/18 05:43 - Labs Result Diagrams: 07/20/18 02:20 07/20/18 02:20 Labs: Laboratory Results - last 24 hr 07/20/18 07:41 RPR Nonreactive Assessment & Plan - Assessment and Plan (Free Text) Assessment: 37 yo F with medical hx of schizoaffective disorder, borderline personality disorder, alcohol abuse being evaluated for management of UTI. Plan: Mild UTI --UA: moderate LE, large blood, occ bacteria, 2-5 WBC --UCx no growth --pt afebrile, no leukocytosis noted --pt endorses urinary frequency, no dysuria, no urgency, no discharge --Medications --keflex 500 mg PO BID x 3 days GERD --Pepcid 40 mg PO HS PRN Hx Alcohol abuse --Alcohol, quantitative < 10 --c/w thiamine, folic acid --education on alcohol cessation Schizoaffective Disorder Severe Borderline Personality Disorder --continue with all medications as per Psychiatry Dispostion: Patient is medically stable, no further medical intervention needed at this time. Medicine to sign off on case. Continue with keflex as prescribed for 3 days. Thank you for your consultation, please re-consult if symptoms worsen. Case discussed with Dr. Marcie Burrell DO, PGY-1 <Dolly Jack - Last Filed: 07/22/18 06:33> Meds - Medications Medications: Current Medications Acetaminophen (Tylenol 325mg Tab) 650 mg PO Q4 PRN PRN Reason: Pain, moderate (4-7) Al Hydrox/Mg Hydrox/Simethicone (Maalox Plus 30 Ml) 30 ml PO DAILY PRN PRN Reason: Upset Stomach Benztropine Mesylate (Cogentin) 1 mg PO AMHS [facility] Last Admin: 07/21/18 21:21 Dose: 1 mg Cephalexin Monohydrate (Keflex) 500 mg PO Q12 [facility]; Protocol Stop: 07/23/18 23:59 Last Admin: 07/21/18 17:41 Dose: 500 mg Chlorpromazine (Thorazine) 50 mg PO Q6H PRN; Protocol PRN Reason: Agitation Chlorpromazine (Thorazine) 50 mg IM Q6H PRN; Protocol PRN Reason: Agitation Clonazepam (Klonopin) 0.5 mg PO 1300 [facility]; Protocol Last Admin: 07/21/18 12:54 Dose: 0.5 mg Clonazepam (Klonopin) 1 mg PO 2100 [facility]; Protocol Last Admin: 07/21/18 21:22 Dose: 1 mg Famotidine (Pepcid) 40 mg PO HS [facility] Last Admin: 07/21/18 21:21 Dose: 40 mg Fluticasone Propionate (Flonase) 1 actuation NS AMHS [facility] Last Admin: 07/21/18 21:22 Dose: 1 actuation Folic Acid (Folic Acid) 1 mg PO DAILY [facility] Last Admin: 07/21/18 09:21 Dose: 1 mg Home Med (Home Med) 1 unit PO DAILY [facility] Last Admin: 07/21/18 09:21 Dose: 1 unit Lorazepam (Ativan) 2 mg PO Q6H PRN; Protocol PRN Reason: Anxiety Last Admin: 07/21/18 17:41 Dose: 2 mg Lorazepam (Ativan) 2 mg IM Q6H PRN; Protocol PRN Reason: Anxiety Magnesium Hydroxide (Milk Of Magnesia) 30 ml PO DAILY PRN PRN Reason: Constipation Montelukast Sodium (Singulair) 10 mg PO DAILY [facility] Last Admin: 07/21/18 09:21 Dose: 10 mg Multivitamins/Minerals (Therapeutic-M Tab) 1 tab PO 0800 [facility] Last Admin: 07/21/18 09:22 Dose: 1 tab Quetiapine Fumarate (Seroquel) 150 mg PO 2100 [facility]; Protocol Last Admin: 07/21/18 21:39 Dose: 150 mg Thiamine HCl (Vitamin B1 Tab) 100 mg PO DAILY [facility] Last Admin: 07/21/18 09:21 Dose: 100 mg Topiramate (Topamax) 100 mg PO 2100 [facility]; Protocol Last Admin: 07/21/18 21:21 Dose: 100 mg Topiramate (Topamax) 50 mg PO 0900,1300 [facility]; Protocol Last Admin: 07/21/18 12:54 Dose: 50 mg Zolpidem Tartrate (Ambien) 10 mg PO HS PRN; Protocol PRN Reason: Insomnia Last Admin: 07/21/18 21:22 Dose: 10 mg Results - Vital Signs Recent Vital Signs: Last Vital Signs Temp 97.5 F L 07/20/18 06:59 Pulse 85 07/20/18 10:00 Resp 21 07/20/18 10:00 BP 116/83 07/20/18 06:59 Pulse Ox 100 07/20/18 05:43 - Labs Result Diagrams: 07/20/18 02:20 07/20/18 02:20 Attending/Attestation - Attestation I have personally seen and examined this patient.: Yes I have fully participated in the care of the patient.: Yes I have reviewed all pertinent clinical information: Yes Notes (Text): 07/21/18 37 year old female with past medical history of schizoaffective disorder and alcohol abuse who presented with depressed mood. Medical consultation was requested for medical management and UTI. UA suggestive of possible although UCx was negative. She has complaints of UTI with suprapubic pain and increased frequency. Continue with keflex for 3-5 days. She was counselled on alcohol abstinence. Labs and chart was reviewed. Thank you Dr. Steele for allowing us to participate in the care of this patient. Please re-consult as needed. Dolly Jack MD Hospitalist.
--- NOTE | 2018-07-21 16:18 | PCM.PYCHPN ---
Psychiatric Progress Note - Psychiatric Progress Note Patient seen today, length of contact: 30 minutes Patient Chief Complaint: "I'm telling you right now, if you cannot find me housing, if he cannot find me counselor, if he cannot provide me with follow-up appointments, if he cannot provide me with what I want he will find me ". Problems Identified/Issues Discussed: Suicide/ homicide prevention, past psychiatric h/o, current psychiatric symptoms, medical problems, risk/benefits and alternatives of medications, medications compliance, coping strategies, substance abuse h/o, relapse prevention, importance of follow up with psychiatrist and therapist, discharge plan. Medical Problems: urinary tract infection, patient was seen by medical team, consultation appreciated Keflex prescribed for 3 days Diagnostic Results: 07/20/18 02:20 07/20/18 02:20 Lab Results 07/20/18 07:41: Triglycerides 87, Cholesterol 145, LDL Cholesterol Direct 102, HDL Cholesterol 37 07/20/18 07:41: RPR Nonreactive 07/20/18 07:41: Free T4 1.22, TSH 3rd Generation 3.42 07/20/18 02:20: Alcohol, Quantitative < 10 07/20/18 02:20: Salicylates < 1 L, Acetaminophen < 10.0 L 07/20/18 02:20: Sodium 143, Potassium 3.6, Chloride 114 H, Carbon Dioxide 20 L, Anion Gap 13, BUN 8, Creatinine 0.5 L, Est GFR ( Amer) > 60, Est GFR ( Non-Af Amer) > 60, Random Glucose 99, Calcium 8.7, Total Bilirubin 0.2, AST 19, ALT 24, Alkaline Phosphatase 78, Total Protein 6.7, Albumin 3.9, Globulin 2.8, Albumin/Globulin Ratio 1.4 07/20/18 02:20: WBC 9.7 D, RBC 4.26, Hgb 11.5 L, Hct 34.7 L, MCV 81.5, MCH 27.0, MCHC 33.1, RDW 13.6, Plt Count 312, MPV 8.2, Gran % 58.4, Lymph % (Auto) 32.5, [place] % (Auto) 6.6 H, Eos % (Auto) 1.9, Baso % (Auto) 0.6, Gran # 5.63, Lymph # (Auto) 3.1, [place] # (Auto) 0.6, Eos # (Auto) 0.2, Baso # (Auto) 0.06 07/19/18 23:55: Urine Opiates Screen Negative, Urine Methadone Screen Negative, Ur Barbiturates Screen Negative, Ur Phencyclidine Scrn Negative, Ur Amphetamines Screen Negative, U Benzodiazepines Scrn Negative, U Oth Cocaine Metabols Negative, U Cannabinoids Screen Negative 07/19/18 23:55: Urine Color Yellow, Urine Appearance Sl cloudy, Urine pH 7.5, Ur Specific [place] 1.010, Urine Protein Negative, Urine Glucose (UA) Negative, Urine Ketones Negative, Urine Blood Large H, Urine Nitrate Negative, Urine Bilirubin Negative, Urine Urobilinogen 0.2, Ur Leukocyte Esterase Moderate H, Urine RBC 25 - 30, Urine WBC 2 - 5, Ur Epithelial Cells 3 - 4, Urine Bacteria Occ, Hyaline Casts 0 - 2 Vital Signs Temp Pulse Pulse Resp BP Pulse Ox 07/20/18 10:00 85 21 07/20/18 06:59 97.5 F L 85 21 116/83 07/20/18 05:43 97.8 F 71 18 96/66 L 100 07/20/18 02:27 97.8 F 81 18 123/61 100 07/19/18 23:55 98 F 79 18 112/57 L 99 DSM 5 Symptoms Update: shortly, patient is 37yr old female with history of schizoaffective disorder, multiple admissions into the psychiatric inpatient unit in the past, severe borderline personality disorder, ppatient has involuntary commitment in the past, patient is very particular about her medications and what doses might be helpful to her, patient was found sitting on the streets, reported that she needed to have help, patient was also drinking on daily basis, patient requeste d psychiatric evaluation of admission, was admitted overnight. Patient has chronic psychosis, not allowing physicians to increase doses of the medications, has tendency of decreasing her on medications, patient requires further evaluation and stabilization and medication adjustment. Patient was seen today at the treatment team meeting, patient presented in acute distress, was crying hysterically, threatening this contract writer and staff, was demanding to have housing, counseling, "nobody loves me, everybody brushing me off, I know I'm very hard to deal with, but admits tell you why I present myself this way, nobody cares". "my own family told me at that it would be better if I will go and kill myself, my sister said that they should be by now, my father said that he does not want to deal with me anymore"."I'm telling you right now, if you cannot find me housing, if he cannot find me counselor, if he cannot provide me with follow-up appointments, if he cannot provide me with what I want he will find me ". Patient presented to be agitated, loud voice, impossible to interview. Patient also presented to be paranoid, guarded, agitated. Patient does not want to take increased doses of medication but from this contract writer perspective patient will be not improving with no adjustment of medications. emotional support and empathic listening provided but patient was not able to calm down, patient was escorted from the room, when necessary medications offered. Anxiety is better, no withdrawal symptoms observed or reported. as per staff patient is making racial remarks, they are hard to deal with. So far patient tolerates medications well, no side effects observed or reported, aims 0, no EPS. Impression: Schizoaffective disorder, bipolar type Severe borderline personality disorder Medication Change: Yes (Seroquel was increased to 150 mg at the nighttime) Medical Record Reviewed: Yes Consults ordered or reviewed: medical consult appreciated Mental Status Examination - Cognitive Function Orientation: Person, Place, Situation Memory: Intact Attention: Poor Concentration: Poor Association: Loose Fund of Knowledge: Poor - Mood Mood: Depressed, Anxious - Affect Affect: Constricted, Flat - Formal Thought Process Formal Thought Process: Delusions, Paranoia, Circumstantial - Suicidal Ideation Suicidal Ideation: Yes Plan: patient is manipulative, threatening that she is going to harm herself if her requirements will be not met - Homicidal Ideation Homicidal Ideation: No Goal/Treatment Plan - Goal/Treatment Plan Need for Continued Stay: Remain at risks for inpatient hospitalization, Severe depression anxiety, Discharge may exacerbated symptoms, Severe functional impairment Progress Toward Problem(s) and Goals/Treatment Plan: Milieu/structure/supportive therapy Medical consult was initiated Medications were confirmed with the patient pharmacy [facility] [place], med list was filed into the chart, meds resumed multivitamins, folic acid, thiamine started when necessary medication for possible alcohol withdrawals clonazepam 1 mg twice a day but patient reported that she was taking 0.5 mg at 1 PM and 1 mg at 9 PM we'll resume that Ambien 10 mg at the nighttime patient reported that she is taking it at 9 PM we'll resume that Topamax 100 mgat 9 PM and 50 mg twice a day we'll resume that Seroquel 10 mg at the nighttime we will resume that Benztropine 1 mg twice a day was resumed SW consultation for discharge plan and social issues Med management (specify the name, doses, plan to titrate or wean it off) Family involvement Follow up on labs Will monitor closely Pt was educated about risk/benefits and alternatives of medications, coping strategies (safety plan, suicide prevention), relapse prevention, importance of follow up with psychiatrist and therapist, stay away from drugs/alcohol/smoking Estimated Date of D/C: 07/28/18
[2018-07-22] MEDS: Fluticasone Nasal 50 mcg/Spray NS SCH ×2 (09:21→22:33)
[2018-07-22] MEDS: FEXOFENADINE 180 MG PO SCH (09:22)
[2018-07-22] MEDS: Multivitamin With Minerals Tab PO SCH (09:23)
--- NOTE | 2018-07-22 16:34 | PCM.PYCHPN ---
Psychiatric Progress Note - Psychiatric Progress Note Patient seen today, length of contact: 30 minutes Patient Chief Complaint: "I'm telling you right now, you have to find the apartment, I do want to stay boarding home, I want to have therapist, I want to go to day treatment program". Problems Identified/Issues Discussed: Suicide/ homicide prevention, past psychiatric h/o, current psychiatric symptoms, medical problems, risk/benefits and alternatives of medications, medications compliance, coping strategies, substance abuse h/o, relapse prevention, importance of follow up with psychiatrist and therapist, discharge plan. Medical Problems: urinary tract infection, patient was seen by medical team, consultation appreciated Keflex prescribed for 3 days Diagnostic Results: 07/20/18 02:20 07/20/18 02:20 Lab Results 07/20/18 07:41: Triglycerides 87, Cholesterol 145, LDL Cholesterol Direct 102, HDL Cholesterol 37 07/20/18 07:41: RPR Nonreactive 07/20/18 07:41: Free T4 1.22, TSH 3rd Generation 3.42 07/20/18 02:20: Alcohol, Quantitative < 10 07/20/18 02:20: Salicylates < 1 L, Acetaminophen < 10.0 L 07/20/18 02:20: Sodium 143, Potassium 3.6, Chloride 114 H, Carbon Dioxide 20 L, Anion Gap 13, BUN 8, Creatinine 0.5 L, Est GFR ( Amer) > 60, Est GFR (Non-Af Amer) > 60, Random Glucose 99, Calcium 8.7, Total Bilirubin 0.2, AST 19, ALT 24, Alkaline Phosphatase 78, Total Protein 6.7, Albumin 3.9, Globulin 2.8, Albumin/Globulin Ratio 1.4 07/20/18 02:20: WBC 9.7 D, RBC 4.26, Hgb 11.5 L, Hct 34.7 L, MCV 81.5, MCH 27.0, MCHC 33.1, RDW 13.6, Plt Count 312, MPV 8.2, Gran % 58.4, Lymph % (Auto) 32.5, [place] % (Auto) 6.6 H, Eos % (Auto) 1.9, Baso % (Auto) 0.6, Gran # 5.63, Lymph # (Auto) 3.1, [place] # (Auto) 0.6, Eos # (Auto) 0.2, Baso # (Auto) 0.06 07/19/18 23:55: Urine Opiates Screen Negative, Urine Methadone Screen Negative, Ur Barbiturates Screen Negative, Ur Phencyclidine Scrn Negative, Ur Amphetamines Screen Negative, U Benzodiazepines Scrn Negative, U Oth Cocaine Metabols Negative, U Cannabinoids Screen Negative 07/19/18 23:55: Urine Color Yellow, Urine Appearance Sl cloudy, Urine pH 7.5, Ur Specific [place] 1.010, Urine Protein Negative, Urine Glucose (UA) Negative, Urine Ketones Negative, Urine Blood Large H, Urine Nitrate Negative, Urine Bilirubin Negative, Urine Urobilinogen 0.2, Ur Leukocyte Esterase Moderate H, Urine RBC 25 - 30, Urine WBC 2 - 5, Ur Epithelial Cells 3 - 4, Urine Bacteria Occ, Hyaline Casts 0 - 2 Vital Signs Temp Pulse Pulse Resp BP Pulse Ox 07/20/18 10:00 85 21 07/20/18 06:59 97.5 F L 85 21 116/83 07/20/18 05:43 97.8 F 71 18 96/66 L 100 07/20/18 02:27 97.8 F 81 18 123/61 100 07/19/18 23:55 98 F 79 18 112/57 L 99 DSM 5 Symptoms Update: shortly, patient is 37yr old female with history of schizoaffective disorder, multiple admissions into the psychiatric inpatient unit in the past, severe borderline personality disorder, ppatient has involuntary commitment in the past, patient is very particular about her medications and what doses might be helpful to her, patient was found sitting on the streets, reported that she needed to have help, patient was also drinking on daily basis, patient requested psychiatric evaluation of admission, was admitted overnight. Patient has chronic psychosis, not allowing physicians to increase doses of the medica tions, has tendency of decreasing her on medications, patient requires further evaluation and stabilization and medication adjustment. Patient was seen today in the dining area, patient is impossible to have conversation with, patient is tangential circumstantial raising her voice without any obvious reasons, patient said that she does not want to go to boarding home, patient wanted to have her own apartment, patient wants to take only Seroquel 150 mg at the nighttime,he shouldn't was agitated yesterday required when necessary medications and staying in quiet room. Anxiety is better, no withdrawal symptoms observed or reported. as per staff patient is making racial remarks, they are hard to deal with. So far patient tolerates medications well, no side effects observed or reported, aims 0, no EPS. Impression: Schizoaffective disorder, bipolar type Severe borderline personality disorder Medication Change: Yes (Seroquel was increased to 150 mg at the nighttime) Medical Record Reviewed: Yes Mental Status Examination - Cognitive Function Orientation: Person, Place, Situation Memory: Intact Attention: Poor Concentration: Poor Association: Loose Fund of Knowledge: Poor - Mood Mood: Depressed, Anxious - Affect Affect: Constricted, Flat - Formal Thought Process Formal Thought Process: Delusions, Paranoia, Circumstantial - Suicidal Ideation Suicidal Ideation: Yes - Homicidal Ideation Homicidal Ideation: No Goal/Treatment Plan - Goal/Treatment Plan Need for Continued Stay: Remain at risks for inpatient hospitalization, Severe depression anxiety, Discharge may exacerbated symptoms, Severe functional impairment Progress Toward Problem(s) and Goals/Treatment Plan: Milieu/structure/supportive therapy Medical consult was initiated Medications were confirmed with the patient pharmacy [facility] [place], med list was filed into the chart, meds resumed multivitamins, folic acid, thiamine started when necessary medication for possible alcohol withdrawals clonazepam 1 mg twice a day but patient reported that she was taking 0.5 mg at 1 PM and 1 mg at 9 PM we'll resume that Ambien 10 mg at the nighttime patient reported that she is taking it at 9 PM we'll resume that Topamax 100 mgat 9 PM and 50 mg twice a day we'll resume that Seroquel 150 mg at the nighttime was increased 07/21/2018 Benztropine 1 mg twice a day was resumed SW consultation for discharge plan and social issues Family involvement Follow up on labs Will monitor closely Pt was educated about risk/benefits and alternatives of medications, coping strategies (safety plan, suicide prevention), relapse prevention, importance of follow up with psychiatrist and therapist, stay away from drugs/alcohol/smoking Estimated Date of D/C: 07/28/18
[2018-07-23 07:11] VITALS: RESP 20
[2018-07-23] MEDS: Multivitamin With Minerals Tab PO SCH (07:58)
[2018-07-23] MEDS: FEXOFENADINE 180 MG PO SCH (09:01)
[2018-07-23] MEDS: Fluticasone Nasal 50 mcg/Spray NS SCH ×2 (11:12→23:14)
--- NOTE | 2018-07-23 16:15 | PCM.BM ---
Treatment assets and liabiliti Patient Assests: adapts well, cooperative, educated, motivated, resourceful, self-reliant, ADL independent, negotiates basic needs, cognitively intact - Diagnosis (1) Schizoaffective disorder Status: Chronic Interventions: 07/20/18 08:37 Psychoeducation/psychotherapy Psychopharmacology/adjustment of medications as needed/ monitoring possible side effects Evaluate pt on daily basis Compliance with medications and follow up appointments Long acting medication if pt is noncompliant with pill form Suicide and homicide risk assessment and prevention, coping strategies, safety plan Relapse prevention Reduction of symptoms Improve functional status Possible assertive community treatment Cognitive behavioral therapy Family involvement Possible social skill training as outpatient (2) Alcohol abuse Status: Acute Interventions: 07/20/18 08:38 Monitoring withdrawal symptoms Medical detoxification Pharmacotherapy for alcohol/benzos/opioid dependence Maintaining sobriety Relapse prevention Possible rehabilitation Motivational interviewing 12-step programs: AA meetings
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
[2018-07-24] MEDS: Multivitamin With Minerals Tab PO SCH (08:33)
[2018-07-24] MEDS: FEXOFENADINE 180 MG PO SCH (08:48)
[2018-07-24] MEDS: Fluticasone Nasal 50 mcg/Spray NS SCH ×2 (09:07→21:27)
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
[2018-07-24] MEDS: Benzocaine/Menthol (Cepacol) Lozenge MT PRN ×2 (15:06→20:53)
[2018-07-25] MEDS: Benzocaine/Menthol (Cepacol) Lozenge MT PRN ×2 (05:34→14:05)
[2018-07-25] MEDS: FEXOFENADINE 180 MG PO SCH (07:50)
[2018-07-25] MEDS: Multivitamin With Minerals Tab PO SCH (07:50)
[2018-07-25] MEDS: Fluticasone Nasal 50 mcg/Spray NS SCH ×2 (09:18→21:39)
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
[2018-07-26 06:59] VITALS: BP 111/77; PULSE 65; TEMP 97.6
[2018-07-26] MEDS: FEXOFENADINE 180 MG PO SCH (09:04)
[2018-07-26] MEDS: Multivitamin With Minerals Tab PO SCH (09:06)
[2018-07-26] MEDS: Fluticasone Nasal 50 mcg/Spray NS SCH (10:03)
--- NOTE | 2018-07-26 17:27 | PCM.PYCHDC ---
Mental Status Examination - Mental Status Examination Orientation: Person, Place, Situation, Time Memory: Intact Mood: Neutral Affect: Constricted Attention: WNL Concentration: Poor (but improved) Association: Loose (baseline) Fund of Knowledge: WNL Formal Thought Process: Circumstantial Description of patient's judgement and insight: improved, but still limited Psychotic Thoughts and Behaviors: patient is mildly disorganized as well as repetitive but no psychotic symptoms observed or reported Suicidal Ideation: No Current Homicidal Ideation?: No Plan: patient adamantly denied thoughts of harming himself or others, requested multivitamins prior to discharge Discharge Summary - Discharge Note Reason for Hospitalization: patient was admitted for evaluation and stabilization of disorganized thoughts and behavior as well as depressive symptoms. Psychiatric History (includes Medical, Family, Personal Hx): mmultiple psychiatric admissions, severe borderline personality disorder Laboratory Data: 07/20/18 02:20 07/20/18 02:20 Lab Results 07/20/18 07:41: Triglycerides 87, Cholesterol 145, LDL Cholesterol Direct 102, HDL Cholesterol 37 07/20/18 07:41: RPR Nonreactive 07/20/18 07:41: Free T4 1.22, TSH 3rd Generation 3.42 07/20/18 02:20: Alcohol, Quantitative < 10 07/20/18 02:20: Salicylates < 1 L, Acetaminophen < 10.0 L 07/20/18 02:20: Sodium 143, Potassium 3.6, Chloride 114 H, Carbon Dioxide 20 L, Anion Gap 13, BUN 8, Creatinine 0.5 L, Est GFR ( Amer) > 60, Est GFR (Non-Af Amer) > 60, Random Glucose 99, Calcium 8.7, Total Bilirubin 0.2, AST 19, ALT 24, Alkaline Phosphatase 78, Total Protein 6.7, Albumin 3.9, Globulin 2.8, Albumin/Globulin Ratio 1.4 07/20/18 02:20: WBC 9.7 D, RBC 4.26, Hgb 11.5 L, Hct 34.7 L, MCV 81.5, MCH 27.0, MCHC 33.1, RDW 13.6, Plt Count 312, MPV 8.2, Gran % 58.4, Lymph % (Auto) 32.5, [place] % (Auto) 6.6 H, Eos % (Auto) 1.9, Baso % (Auto) 0.6, Gran # 5.63, Lymph # (Auto) 3.1, [place] # (Auto) 0.6, Eos # (Auto) 0.2, Baso # (Auto) 0.06 07/19/18 23:55: Urine Opiates Screen Negative, Urine Methadone Screen Negative, Ur Barbiturates Screen Negative, Ur Phencyclidine Scrn Negative, Ur Amphetamines Screen Negative, U Benzodiazepines Scrn Negative, U Oth Cocaine Metabols Negative, U Cannabinoids Screen Negative 07/19/18 23:55: Urine Color Yellow, Urine Appearance Sl cloudy, Urine pH 7.5, Ur Specific [place] 1.010, Urine Protein Negative, Urine Glucose (UA) Negative, Urine Ketones Negative, Urine Blood Large H, Urine Nitrate Negative, Urine Bilirubin Negative, Urine Urobilinogen 0.2, Ur Leukocyte Esterase Moderate H, Urine RBC 25 - 30, Urine WBC 2 - 5, Ur Epithelial Cells 3 - 4, Urine Bacteria Occ, Hyaline Casts 0 - 2 Vital Signs Temp Pulse Pulse Resp BP Pulse Ox 07/26/18 06:58 97.6 F 65 20 111/77 07/25/18 16:00 88 126/89 07/25/18 07:00 97.8 F 77 20 121/83 07/24/18 16:00 66 118/67 07/24/18 07:10 98.9 F 81 20 103/72 07/24/18 07:04 97.4 F L 53 L 20 104/53 L 07/23/18 07:08 97.6 F 101 H 20 132/76 07/22/18 16:00 75 123/82 07/20/18 10:00 85 21 07/20/18 06:59 97.5 F L 85 21 116/83 07/20/18 05:43 97.8 F 71 18 96/66 L 100 07/20/18 02:27 97.8 F 81 18 123/61 100 07/19/18 23:55 98 F 79 18 112/57 L 99 Consultations:: List each consultation separately and include: 1. Reason for request. 2. Findings. 3. Follow-up Consultations: medical consult appreciated for urinary tract infection, please see notes for more detailed information Summary of Hospital Course include:: 1. Description of specific treatment plan utilized for patients during their course of treatmen. 2. Summarize the time- course for resolution of acute symptoms and/or regressed behaviors. 3. Describe issues identified and worked on during hospitalization. 4. Describe medication utilized. 5. Describe medical problems identified and treated. 6. Reassessment of suicide risk Summary of Hospital Course: shortly, patient is 37yr old female with history of schizoaffective disorder, multiple admissions into the psychiatric inpatient unit in the past, severe borderline personality disorder, ppatient has involuntary commitment in the past, patient is very particular about her medications and what doses might be helpful to her, patient was found sitting on the streets, reported that she needed to have help, patient was also drinking on daily basis, patient requested psychiatric evaluation of admission, was admitted overnight. Patient has chronic psychosis, not allowing physicians to increase doses of the medications, has tendency of decreasing her on medications, patient requires further evaluation and stabilization and medication adjustment. at the time of admission patient presented in acute distress, was crying hysterically, had difficulties to concentrate and stay focused, patient had difficulties to follow simple command, distracted. Medication list was obtained from patient pharmacy [facility]: patient was on clonazepam 1 mg twice a day but patient reported that she was taking 0.5 mg at 1 PM and 1 mg at 9 PM we'll resume that Ambien 10 mg at the nighttime patient reported that she is taking it at 10 9 PM Topamax 100 mgat 9 PM and 50 mg twice a day Seroquel 100 mg at the nighttime Benztropine 1 mg twice a day Prescriptions for psychotropic medications were provided by Dr. Conley, filled on 07/02/2018 Patient is willing to resume medications, patient reported tolerated medications well no side effects observed or reported, aims 0, no EPS. during this hospitalization patient was selectively compliant with medications, patient was refusing to have Seroquel over the weekend, but at the same time no agitation, no aggression over the weekend. Patient requested to be discharged today because this automobile service writer "cannot help me". Patient reported that she has place to go such as her friends basement, executive secretary social welfare provided patient with information about [facility] program patient has follow-up appointment. pt has severe borderline personality disorder, was splitting staff, was antagonizing other patients, pt was making racial remarks as well. 07/20/18 02:20 07/20/18 02:20 Lab Results 07/20/18 07:41: Triglycerides 87, Cholesterol 145, LDL Cholesterol Direct 102, HDL Cholesterol 37 07/20/18 07:41: Free T4 1.22, TSH 3rd Generation 3.42 07/20/18 02:20: Alcohol, Quantitative < 10 07/20/18 02:20: Salicylates < 1 L, Acetaminophen < 10.0 L 07/20/18 02:20: Sodium 143, Potassium 3.6, Chloride 114 H, Carbon Dioxide 20 L, Anion Gap 13, BUN 8, Creatinine 0.5 L, Est GFR ( Amer) > 60, Est GFR (Non-Af Amer) > 60, Random Glucose 99, Calcium 8.7, Total Bilirubin 0.2, AST 19, ALT 24, Alkaline Phosphatase 78, Total Protein 6.7, Albumin 3.9, Globulin 2.8, Albumin/Globulin Ratio 1.4 07/20/18 02:20: WBC 9.7 D, RBC 4.26, Hgb 11.5 L, Hct 34.7 L, MCV 81.5, MCH 27.0, MCHC 33.1, RDW 13.6, Plt Count 312, MPV 8.2, Gran % 58.4, Lymph % (Auto) 32.5, [place] % (Auto) 6.6 H, Eos % (Auto) 1.9, Baso % (Auto) 0.6, Gran # 5.63, Lymph # (Auto) 3.1, [place] # (Auto) 0.6, Eos # (Auto) 0.2, Baso # (Auto) 0.06 07/19/18 23:55: Urine Opiates Screen Negative, Urine Methadone Screen Negative, Ur Barbiturates Screen Negative, Ur Phencyclidine Scrn Negative, Ur Amphetamines Screen Negative, U Benzodiazepines Scrn Negative, U Oth Cocaine Metabols Negative, U Cannabinoids Screen Negative 07/19/18 23:55: Urine Color Yellow, Urine Appearance Sl cloudy, Urine pH 7.5, Ur Specific [place] 1.010, Urine Protein Negative, Urine Glucose (UA) Negative, Urine Ketones Negative, Urine Blood Large H, Urine Nitrate Negative, Urine Bilirubin Negative, Urine Urobilinogen 0.2, Ur Leukocyte Esterase Moderate H, Urine RBC 25 - 30, Urine WBC 2 - 5, Ur Epithelial Cells 3 - 4, Urine Bacteria Occ, Hyaline Casts 0 - 2 Vital Signs Temp Pulse Pulse Resp BP Pulse Ox 10/23/18 10:00 85 21 07/20/18 06:59 97.5 F L 85 21 116/83 07/20/18 05:43 97.8 F 71 18 96/66 L 100 07/20/18 02:27 97.8 F 81 18 123/61 100 07/19/18 23:55 98 F 79 18 112/57 L 99 during the treatment team meeting today patient reported that she has for refills of her medications and she does not want this automobile service writer to give any prescriptions besides multivitamins. patient denied any thoughts of harming herself or others, denied intent or plan. Patient reached maximum effect from this hospitalization, patient was not receptive to increase the medications, patient doesn't meet the criteria for screening by [facility], pt was not willing to take meds, refusing increase dose of seroquel, also secondary gain present, pt is homeless and wants to stay in the hospital for food and custodial, offered boarding home referral, but pt refused. at this time pt has very unrealistic expectations in regards of the way she needs to be treated, what referrals she needs to have, and what setting of the inpatient and outpatient programs she would like to have. At the time of the discharge pt denied been depressed, denied thoughts of harming self or others, denied psychotic symptoms, and pt does not appeared to be psychotic, denied been anxious, pt is not in imminent danger to self or others, pt was referred to [facility] program, information about follow up appointment, time and address provided to the pt, it is patient responsibility to follow up with outpatient clinic, PMD as well as specialists (see note for more detailed information). In case pt will need to obtain results of studies pending at discharge pt was provided with contact information of Psychiatric Inpatient unit [phone] as well as Medical Record Department [phone]. Counseling about alcohol cessation provided pt was provided with prescriptions for all of medications (please see medication reconciliation form) Pt was educated about safety plan in case of worsening of symptoms or in case of suicidal or homicidal ideation call 911 or go to the nearest ER, also was educated to take meds as prescribed and stay away from drugs, pt verbalized understanding. - Diagnosis (1) Schizoaffective disorder Status: Chronic Priority: High (2) Alcohol abuse Status: Acute Priority: Low (3) Borderline personality disorder Status: Acute Priority: High - Final Diagnosis (DSM 5) Condition upon Discharge: STABLE Disposition: HOME/ ROUTINE Follow-up Treatment Plan: At the time of the discharge pt denied been depressed, denied thoughts of harming self or others, denied psychotic symptoms, and pt does not appeared to be psychotic, denied been anxious, pt is not in imminent danger to self or others, pt was referred to [facility] program, information about follow up appointment, time and address provided to the pt, it is patient responsibility to follow up with outpatient clinic, PMD as well as specialists (see SW note for more detailed information). In case pt will need to obtain results of studies pending at discharge pt was provided with contact information of Psychiatric Inpatient unit [phone] as well as Medical Record Department [phone]. Counseling about alcohol cessation provided pt was provided with prescriptions for all of medications (please see medication reconciliation form) Pt was educated about safety plan in case of worsening of symptoms or in case of suicidal or homicidal ideation call 911 or go to the nearest ER, also was educated to take meds as prescribed and stay away from drugs, pt verbalized understanding. Prescriptions/Medication Reconciliation: Multimineral/Multivitamin [Therapeutic-M Tab] 1 tab PO 0800 #14 tab - Smoking Cessation Smoking Cessation Medication prescribed: No Reason for not providing: patient denied smoking - Antipsychotic Medications Pt discharged on 2 or more routine antipsychotic medications: No
== END 2018-07-26 12:14 | disposition home or self-care (01) | DRG 430 ==
LOC: ED 22:46 → ERH 07-20 06:03 → PSYC 07-20 06:46
PROVIDERS: ADMIT Psychiatry & Neurology Psychiatry; ATTEND Psychiatry & Neurology Psychiatry
PROC: GZ3ZZZZ Medication Management (ICD-10-PCS; principal; 2018-07-20)
DX: F25.0 Schizoaffective disorder, bipolar type (principal); N39.0 Urinary tract infection, site not specified; F60.3 Borderline personality disorder; F10.10 Alcohol abuse, uncomplicated; F41.9 Anxiety disorder, unspecified; Z91.14 Patient's other noncompliance with medication regimen

== ENCOUNTER 2018-07-29 00:55 | Emergency (ER) | payer OTHER ==
[2018-07-29 00:56] VITALS: BMI 29.2
--- NOTE | 2018-07-29 02:24 | ED PDOC ---
Arrival/HPI - General Time Seen by Provider: 07/29/18 01:35 Historian: Patient - History of Present Illness Narrative History of Present Illness (Text): 07/29/18 02:15 A 37 year old female, whose past medical history includes hypertension, asthma, depression, schizophrenia, and bipolar disorder, presents to the emergency department complaining of anxiety. Patient was recently admitted into the hospital for similar complaints, and states she hasn't been feeling well since discharge. Patient states her medication was increased by the psychiatrist, namely Seroquel and Klonopin. Patient denies any suicidal ideation or homicidal ideation. Patient feels like she needs to be readmitted.Patient denies any fever, chills, vomiting, diarrhea, nausea, dizziness, headache, back pain, neck pain, chest pain, abdominal pain, or any other complaints. Symptom Onset: Gradual Symptom Course: Unchanged Activities at Onset: Light Context: Home Past Medical History - Provider Review Nursing Documentation Reviewed: Yes - Infectious Disease Hx of Infectious Diseases: None - Tetanus Immunization Tetanus Immunization: Unknown - Cardiac Hx Cardiac Disorders: No Hx Hypertension: Yes - Pulmonary Hx Tuberculosis: No - Neurological HX Cerebrovascular Accident: No Hx Seizures: No - HEENT Hx HEENT Disorder: No - Renal Hx Renal Disorder: No - Endocrine/Metabolic Hx Endocrine Disorders: No - Hematological/Oncological Hx Cancer: No - Integumentary Hx Dermatological Disorder: No - Musculoskeletal/Rheumatological Hx Musculoskeletal Disorders: No - Gastrointestinal Hx Gastritis: Yes - Genitourinary/Gynecological Hx Sexually Transmitted Diseases: No - Psychiatric Hx Anxiety: Yes Hx Bipolar Disorder: Yes Hx Depression: Yes Hx Schizophrenia: Yes Hx Substance Use: No (DENIES) - Surgical History Other/Comment: Skin Graft - Anesthesia Hx Anesthesia: Yes Hx Anesthesia Reactions: No Hx Malignant Hyperthermia: No - Suicidal Assessment Feels Threatened In Home Enviroment: No Family/Social History - Physician Review Nursing Documentation Reviewed: Yes Family/Social History: Unknown Family HX Smoking Status: Never Smoked Hx Alcohol Use: No Hx Substance Use: No (DENIES) Hx Substance Use Treatment: No Allergies/Home Meds Allergies/Adverse Reactions: Allergies diphenhydramine HCl [From Benadryl] Allergy (Verified 07/20/18 14:37) ANAPHYLAXIS FISH Allergy (Verified 07/20/18 14:37) RASH fluphenazine [From Prolixin] Allergy (Verified 07/20/18 14:37) ANAPHYLAXIS haloperidol [From Haldol] Adverse Reaction (Verified 07/20/18 14:37) SHORTNESS OF BREATH haloperidol lactate [From Haldol] Adverse Reaction (Verified 07/20/18 14:37) SHORTNESS OF BREATH seafood Allergy (Uncoded 07/20/18 14:37) RASH Review of Systems - Physician Review All systems were reviewed & negative as marked: Yes - Review of Systems Constitutional: Normal. absent: Fevers Eyes: Normal ENT: Normal Respiratory: Normal. absent: SOB, Cough Cardiovascular: Normal. absent: Chest Pain Gastrointestinal: Normal. absent: Abdominal Pain, Diarrhea, Nausea, Vomiting Genitourinary Female: Normal Musculoskeletal: Normal. absent: Back Pain, Neck Pain Skin: Normal Neurological: Normal. absent: Headache, Dizziness Endocrine: Normal Hemo/Lymphatic: Normal Psychiatric: Anxiety. absent: Suicidal Ideation Physical Exam Vital Signs Reviewed: Yes Temperature: Afebrile Blood Pressure: Normal Pulse: Regular Respiratory Rate: Normal Appearance: Positive for: Well-Appearing Pain Distress: None Mental Status: Positive for: Alert and Oriented X 3 - Systems Exam Head: Present: Atraumatic, Normocephalic Pupils: Present: PERRL Extroacular Muscles: Present: EOMI Conjunctiva: Present: Normal Mouth: Present: Moist Mucous Membranes Neck: Present: Normal Range of Motion Respiratory/Chest: Present: Clear to Auscultation, Good Air Exchange. No: Respiratory Distress, Accessory Muscle Use Cardiovascular: Present: Regular Rate and Rhythm, Normal S1, S2. No: Murmurs Abdomen: No: Tenderness, Distention, Peritoneal Signs Back: Present: Normal Inspection Upper Extremity: Present: Normal Inspection. No: Cyanosis, Edema Lower Extremity: Present: Normal Inspection. No: Edema Neurological: Present: GCS=15, CN II-XII Intact, Speech Normal Skin: Present: Warm, Dry, Normal Color. No: Rashes Psychiatric: Present: Alert, Oriented x 3 Medical Decision Making ED Course and Treatment: 07/29/18 02:16 Impression: 37 year old female presents for anxiety. Plan: --EKG --Labs --Chest X-ray -- Reassess and disposition Prior Visits: Notes and results from previous visits were reviewed. Progress Notes: 07/29/18 03:09 Pt eloped from Emergency department. - Scribe Statement The provider has reviewed the documentation as recorded by the Scribe Dede Bebawy training with Mayra Rome Provider Stoneyibe Attestation: All medical record entries made by the Scribe were at my direction and personally dictated by me. I have reviewed the chart and agree that the record accurately reflects my personal performance of the history, physical exam, medical decision making, and the department course for this patient. I have also personally directed, reviewed, and agree with the discharge instructions and disposition. Disposition/Present on Arrival - Present on Arrival Any Indicators Present on Arrival: No History of DVT/PE: No History of Uncontrolled Diabetes: No Urinary Catheter: No History of Decub. Ulcer: No History Surgical Site Infection Following: None - Disposition Have Diagnosis and Disposition been Completed?: Yes Diagnosis: Schizoaffective disorder, bipolar type Disposition: ELOPEMENT - ER ONLY Disposition Time: 03:10 Condition: STABLE
== END 2018-07-29 01:45 | disposition left against medical advice (07) ==
LOC: ED 00:55
DX: F25.0 Schizoaffective disorder, bipolar type (principal); I10 Essential (primary) hypertension

== ENCOUNTER 2018-08-02 11:08 | Emergency (ER) | payer OTHER ==
[2018-08-02 11:34] VITALS: BP 109/65; PULSE 73; RESP 18; TEMP 98.7; O2SAT 100
[2018-08-02 11:35] VITALS: BMI 32.4
--- NOTE | 2018-08-02 12:16 | ED PDOC ---
Arrival/HPI - General Chief Complaint: Psychiatric Evaluation Historian: Patient - History of Present Illness Narrative History of Present Illness (Text): 08/02/18 12:10 37 year old female who presents to the Emergency department complaining of anxiety attack. He reports that she had quit drinking EtOH 48 hours ago, but feels as if she is tremulous, anxious, and unable to think clearly. Patient felt like she was going to lose consciousness and laid on the ground but never had a syncopal episode. She was discharged from the inpatient psychiatric unit a week ago, stating she was receiving a medication that assisted with her symptoms of alcohol. She feels uncomfortable going home, requesting admission. Patient denies fevers, chills, cough, shortness of breath, chest pain, dyspnea on exertion, abdominal pain, nausea, vomiting, diarrhea, back pain, neck pain, headache, dizziness, or any other complaint. Time/Duration: < week (48 hours ago) Symptom Onset: Sudden Symptom Course: Unchanged Context: Home Past Medical History - Provider Review Nursing Documentation Reviewed: Yes - Infectious Disease Hx of Infectious Diseases: None - Tetanus Immunization Tetanus Immunization: Unknown - Reproductive Menopause: No - Cardiac Hx Cardiac Disorders: No Hx Hypertension: Yes - Pulmonary Hx Tuberculosis: No - Neurological HX Cerebrovascular Accident: No Hx Seizures: No - HEENT Hx HEENT Disorder: No - Renal Hx Renal Disorder: No - Endocrine/Metabolic Hx Endocrine Disorders: No - Hematological/Oncological Hx Cancer: No - Integumentary Hx Dermatological Disorder: No - Musculoskeletal/Rheumatological Hx Musculoskeletal Disorders: No - Gastrointestinal Hx Gastritis: Yes - Genitourinary/Gynecological Hx Sexually Transmitted Diseases: No - Psychiatric Hx Anxiety: Yes Hx Bipolar Disorder: Yes Hx Depression: Yes Hx Schizophrenia: Yes Hx Substance Use: No (DENIES) - Surgical History Other/Comment: Skin Graft - Anesthesia Hx Anesthesia: Yes Hx Anesthesia Reactions: No Hx Malignant Hyperthermia: No - Suicidal Assessment Feels Threatened In Home Enviroment: No Family/Social History - Physician Review Nursing Documentation Reviewed: Yes Family/Social History: No Known Family HX Smoking Status: Never Smoked Hx Alcohol Use: No Hx Substance Use: No (DENIES) Hx Substance Use Treatment: No Allergies/Home Meds Allergies/Adverse Reactions: Allergies diphenhydramine HCl [From Benadryl] Allergy (Verified 07/20/18 14:37) ANAPHYLAXIS FISH Allergy (Verified 07/20/18 14:37) RASH fluphenazine [From Prolixin] Allergy (Verified 07/20/18 14:37) ANAPHYLAXIS haloperidol [From Haldol] Adverse Reaction (Verified 07/20/18 14:37) SHORTNESS OF BREATH haloperidol lactate [From Haldol] Adverse Reaction (Verified 07/20/18 14:37) SHORTNESS OF BREATH seafood Allergy (Uncoded 07/20/18 14:37) RASH Review of Systems - Physician Review All systems were reviewed & negative as marked: Yes - Review of Systems Constitutional: absent: Fevers Respiratory: absent: SOB, Cough Cardiovascular: absent: Chest Pain, BO, Syncope Gastrointestinal: absent: Abdominal Pain, Constipation, Diarrhea, Nausea, Vomiting Genitourinary Female: absent: Dysuria Musculoskeletal: absent: Back Pain, Neck Pain Neurological: absent: Headache, Dizziness Psychiatric: Anxiety Physical Exam Vital Signs Reviewed: Yes Vital Signs Temp Pulse Resp BP Pulse Ox 08/02/18 11:33 98.7 F 73 18 109/65 100 Temperature: Afebrile Blood Pressure: Normal Pulse: Regular Respiratory Rate: Normal Appearance: Positive for: Well-Appearing Mental Status: Positive for: Alert and Oriented X 3 - Systems Exam Head: Present: Atraumatic, Normocephalic Pupils: Present: PERRL Extroacular Muscles: Present: EOMI Conjunctiva: Present: Normal Mouth: Present: Moist Mucous Membranes Neck: Present: Normal Range of Motion Respiratory/Chest: Present: Clear to Auscultation, Good Air Exchange. No: Respiratory Distress, Accessory Muscle Use Cardiovascular: Present: Regular Rate and Rhythm, Normal S1, S2. No: Murmurs Abdomen: No: Tenderness, Distention, Peritoneal Signs Back: Present: Normal Inspection Upper Extremity: Present: Normal Inspection. No: Cyanosis, Edema Lower Extremity: Present: Normal Inspection. No: Edema Neurological: Present: GCS=15, CN II-XII Intact, Speech Normal, Other (tremulous) Skin: Present: Warm, Dry, Normal Color. No: Rashes Psychiatric: Present: Alert, Oriented x 3, Normal Insight, Normal Concentration, Other (Crying, tremulous) Medical Decision Making ED Course and Treatment: 08/02/18 12:16 Impression: 37 year old female who is complaining of anxiety s/p quitting EtOH consumption for the past 48 hours. Differential Diagnosis included but are not limited to: EtOH withdrawal Delirium tremens Anxiety Plan: -- Labs -- Blood work -- Chest X-ray -- Ativan --Folic Acid --PES evaluation -- Reassess and disposition Prior Visits: Notes and results from previous visits were reviewed. Progress Notes: 08/02/18 13:00 Labs reviewed with patient medically cleared. States she would like folic acid pill, reporting that was the medication she received while on the psychiatric floor. PES social service liaison called. 08/02/18 15:55 Patient evaluated by PES social service liaison and cleared from psychiatric standpoint. He encourages her to follow up in an outpatient setting. She is stable for discharge. - Lab Interpretations I have reviewed the lab results: Yes - RAD Interpretation Narrative RAD Interpretations (Text): 08/02/18 14:21 Chest X-ray: Dictator : Guy Gaytan MD FINDINGS: LUNGS: No active pulmonary disease. PLEURA: No significant pleural effusion identified, no pneumothorax apparent. CARDIOVASCULAR: No aortic atherosclerotic calcification present. Normal cardiac size. No pulmonary vascular congestion. OSSEOUS STRUCTURES: No significant abnormalities. VISUALIZED UPPER ABDOMEN: Normal. OTHER FINDINGS: None. IMPRESSION: No active disease. Radiology Orders: 08/02/18 12:05 CHEST PORTABLE [RAD] Stat Gaming Table Operator: Radiologist - Medication Orders Current Medication Orders: Discontinued Medications Lorazepam (Ativan) 1 mg PO ONCE ONE; Protocol Stop: 08/02/18 12:07 - Scribe Statement The provider has reviewed the documentation as recorded by the Scribe Arnaud Rizo Provider Scribe Attestation: All medical record entries made by the Scribe were at my direction and personally dictated by me. I have reviewed the chart and agree that the record accurately reflects my personal performance of the history, physical exam, medical decision making, and the department course for this patient. I have also personally directed, reviewed, and agree with the discharge instructions and disposition. Disposition/Present on Arrival - Present on Arrival Any Indicators Present on Arrival: No History of DVT/PE: No History of Uncontrolled Diabetes: No Urinary Catheter: No History of Decub. Ulcer: No History Surgical Site Infection Following: None - Disposition Have Diagnosis and Disposition been Completed?: Yes Diagnosis: Borderline personality disorder Disposition: HOME/ ROUTINE Disposition Time: 15:55 Patient Plan: Discharge Patient Problems: Current Active Problems Problem Status Onset Borderline personality disorder Acute Condition: STABLE Discharge Instructions (ExitCare): Borderline Personality Disorder Print Language: BELARUSIAN Additional Instructions: All medical record entries made by the Scribe were at my direction and pers onally dictated by me. I have reviewed the chart and agree that the record accurately reflects my personal performance of the history, physical exam, medical decision making, and the department course for this patient. I have also personally directed, reviewed, and agree with the discharge instructions and disposition. Referrals: Jeannette Higuera MD [Medical Doctor] - Follow up with primary [facility] [place] [facility] [place] - Follow up with primary Forms: [employer] (Frisian)
[2018-08-02 12:31] LABS: PH,URINE 6.5 (4.7-8.0); URINE APPEARANCE CLEAR (CLEAR); URINE BILIRUBIN NEGATIVE (NEGATIVE); URINE BLOOD NEGATIVE (NEGATIVE); URINE COLOR YELLOW (YELLOW); URINE GLUCOSE (UA) NEGATIVE (NEGATIVE); URINE LEUKOCYTE ESTERASE NEGATIVE Leu/uL (NEGATIVE); URINE PROTEIN NEGATIVE mg/dL (<30 mg/dL); URINE UROBILINOGEN 0.2 E.U./dL (<1 E.U./dL)
[2018-08-02 12:46] LABS: BARBITURATES, UR NEGATIVE (NEGATIVE); BENZODIAZEPINES, UR NEGATIVE (NEGATIVE); OPIATES, UR NEGATIVE (NEGATIVE); PHENCYCLIDINE, UR NEGATIVE (NEGATIVE)
[2018-08-02 13:41] LABS: BASO # 0.04 K/mm3 (0.0-2.0); BASO % 0.5 % (0.0-3.0); EOS # 0.1 (0.0-0.7); EOS % 1.3 % (1.5-5.0); GRAN # 6.17 (1.4-6.5); LYMPH % 22.2 % (22.0-35.0); MEAN CELL VOLUME 82.3 fl (80.0-105.0); MEAN CORPUSCULAR HEMOGLOBIN 27.4 pg (25.0-35.0); MEAN CORPUSCULAR HGB CONC 33.2 g/dl (31.0-37.0); MEAN PLATELET VOLUME 8.5 fl (7.0-11.0); MONO # 0.5 (0.1-0.6); RBC 4.75 10^6/uL (3.5-6.1); RED CELL DISTRIBUTION WIDTH 13.6 % (11.5-14.5); WHITE BLOOD COUNT 8.8 10^3/uL (4.5-11.0)
[2018-08-02 13:50] LABS: ACETAMINOPHEN < 10.0 ug/ml (10.0-20.0); SALICYLATE < 1 mg/dL (2.0-20.0)
[2018-08-02 13:56] LABS: ALB/GLOB RATIO 1.3 (1.1-1.8); ALBUMIN 4.3 g/dL (3.0-4.8); ALT/SGPT 28 U/L (7-56); AST/SGOT 25 U/L (14-36); BLOOD UREA NITROGEN 12 mg/dL (7-21); CALCIUM 9.1 mg/dL (8.4-10.5); GFR NON-AFRICAN AMERICAN > 60
--- NOTE | 2018-08-02 14:04 | RAD ---
Date of service: 08/02/2018 HISTORY: psych pre op COMPARISON: 07/20/2018 FINDINGS: LUNGS: No active pulmonary disease. PLEURA: No significant pleural effusion identified, no pneumothorax apparent. CARDIOVASCULAR: No aortic atherosclerotic calcification present. Normal cardiac size. No pulmonary vascular congestion. OSSEOUS STRUCTURES: No significant abnormalities. VISUALIZED UPPER ABDOMEN: Normal. OTHER FINDINGS: None. IMPRESSION: No active disease.
[2018-08-02 15:12] LABS: FREE T4 0.84 ng/dL (0.78-2.19)
--- NOTE | 2018-08-02 17:09 | CARD ---
APPROVED REPORT Date of service: 08/02/2018 EKG Measurement Heart [id number] <Conclusion> Normal sinus rhythm Low voltage QRS Prolonged QT Abnormal ECG
== END 2018-08-02 17:00 | disposition home or self-care (01) ==
LOC: ED 11:08
DX: F60.3 Borderline personality disorder (principal); F20.9 Schizophrenia, unspecified; I10 Essential (primary) hypertension

== ENCOUNTER 2018-09-08 23:28 | Emergency (ER) | payer OTHER ==
[2018-09-08 23:28] VITALS: BMI 32.4
[2018-09-09 00:33] LABS: URINE BILIRUBIN NEGATIVE (NEGATIVE); URINE BLOOD MODERATE (NEGATIVE); URINE GLUCOSE (UA) NEGATIVE (NEGATIVE); URINE LEUKOCYTE ESTERASE NEGATIVE Leu/uL (NEGATIVE); URINE PROTEIN NEGATIVE mg/dL (<30 mg/dL); URINE UROBILINOGEN 0.2 E.U./dL (<1 E.U./dL)
[2018-09-09 00:34] LABS: URINE APPEARANCE CLEAR (CLEAR); URINE COLOR YELLOW (YELLOW)
[2018-09-09 00:44] LABS: BENZODIAZEPINES, UR NEGATIVE (NEGATIVE)
[2018-09-09 00:46] LABS: BASO # 0.04 K/mm3 (0.0-2.0); BASO % 0.4 % (0.0-3.0); EOS # 0.1 (0.0-0.7); EOS % 0.6 % (1.5-5.0); GRAN # 6.54 (1.4-6.5); GRAN % 64.8 % (50.0-68.0); HEMOGLOBIN 11.8 g/dL (12.0-16.0); LYMPH # 2.9 (1.2-3.4); LYMPH % 28.4 % (22.0-35.0); MEAN CELL VOLUME 83.4 fl (80.0-105.0); MEAN CORPUSCULAR HEMOGLOBIN 27.1 pg (25.0-35.0); MEAN CORPUSCULAR HGB CONC 32.5 g/dl (31.0-37.0); MONO # 0.6 (0.1-0.6); MONO % 5.8 % (1.0-6.0); RBC 4.35 10^6/uL (3.5-6.1); RED CELL DISTRIBUTION WIDTH 13.4 % (11.5-14.5); WHITE BLOOD COUNT 10.1 10^3/uL (4.5-11.0)
[2018-09-09 00:53] LABS: BARBITURATES, UR NEGATIVE (NEGATIVE); OPIATES, UR NEGATIVE (NEGATIVE); PHENCYCLIDINE, UR NEGATIVE (NEGATIVE)
[2018-09-09 00:55] LABS: ACETAMINOPHEN < 10.0 ug/ml (10.0-20.0); SALICYLATE < 1 mg/dL (2.0-20.0)
[2018-09-09 00:56] LABS: ALB/GLOB RATIO 1.3 (1.1-1.8); ALBUMIN 4.1 g/dL (3.0-4.8); ALT/SGPT 21 U/L (7-56); AST/SGOT 24 U/L (14-36); BLOOD UREA NITROGEN 14 mg/dL (7-21); CALCIUM 8.6 mg/dL (8.4-10.5); GFR NON-AFRICAN AMERICAN > 60
[2018-09-09 01:00] VITALS: RESP 18
[2018-09-09 01:04] LABS: URINE BACTERIA RARE (NEG); URINE WBC 0 - 2 /hpf (0-6)
--- NOTE | 2018-09-09 01:41 | ED PDOC ---
Arrival/HPI - General Historian: Patient - History of Present Illness Narrative History of Present Illness (Text): 09/09/18 01:40 Katherine Campbell is a 38 year old female, whose past medical history includes hypertension, asthma, depression, schizophrenia, and bipolar disorder, who pres ents to the emergency department brought in by EMS for psychiatric evaluation. Patient states she was called by the [employer] this morning because of a fine for not paying a ticket. Patient states she did not want to pay for the ticket so she threatened to jump off a [employer] rail platform and told them to send police to every light rail location if they wanted to have her pay the fine. Stefanie anthony hung up the phone before the conversation was over and the [employer] tried calling her back but she blocked their phone number. The [employer] put out a missing persons report the police. The police went to the patient's house and resulted in her being brought to the emergency department. Patient denies any abdominal pain, chest pain, shortness of breath, or any other complaints. Symptom Onset: Gradual Symptom Course: Unchanged Activities at Onset: Light Context: Home <Carolynn Brown - Last Filed: 09/09/18 01:50> <Baldo Tai - Last Filed: 09/09/18 05:03> - General Chief Complaint: Psychiatric Evaluation Time Seen by Provider: 09/08/18 23:54 Past Medical History - Provider Review Nursing Documentation Reviewed: Yes - Infectious Disease Hx of Infectious Diseases: None - Tetanus Immunization Tetanus Immunization: Unknown - Cardiac Hx Cardiac Disorders: No Hx Hypertension: Yes - Pulmonary Hx Tuberculosis: No - Neurological HX Cerebrovascular Accident: No Hx Seizures: No - HEENT Hx HEENT Disorder: No - Renal Hx Renal Disorder: No - Endocrine/Metabolic Hx Endocrine Disorders: No - Hematological/Oncological Hx Cancer: No - Integumentary Hx Dermatological Disorder: No - Musculoskeletal/Rheumatological Hx Musculoskeletal Disorders: No - Gastrointestinal Hx Gastritis: Yes - Genitourinary/Gynecological Hx Sexually Transmitted Diseases: No - Psychiatric Hx Anxiety: Yes Hx Bipolar Disorder: Yes Hx Depression: Yes Hx Schizophrenia: Yes Hx Substance Use: No (DENIES) - Surgical History Other/Comment: Skin Graft - Anesthesia Hx Anesthesia: Yes Hx Anesthesia Reactions: No Hx Malignant Hyperthermia: No - Suicidal Assessment Feels Threatened In Home Enviroment: No <Carolynn Brown - Last Filed: 09/09/18 01:50> Family/Social History - Physician Review Nursing Documentation Reviewed: Yes Family/Social History: Unknown Family HX Smoking Status: Never Smoked Hx Alcohol Use: No Hx Substance Use: No (DENIES) Hx Substance Use Treatment: No <Carolynn Brown Magaly - Last Filed: 09/09/18 01:50> Allergies/Home Meds <KevinCarolynn T - Last Filed: 09/09/18 01:50> <Baldo Tai - Last Filed: 09/09/18 05:03> Allergies/Adverse Reactions: Allergies diphenhydramine HCl [From Benadryl] Allergy (Verified 07/20/18 14:37) ANAPHYLAXIS FISH Allergy (Verified 07/20/18 14:37) RASH fluphenazine [From Prolixin] Allergy (Verified 07/20/18 14:37) ANAPHYLAXIS haloperidol [From Haldol] Adverse Reaction (Verified 07/20/18 14:37) SHORTNESS OF BREATH haloperidol lactate [From Haldol] Adverse Reaction (Verified 07/20/18 14:37) SHORTNESS OF BREATH seafood Allergy (Uncoded 07/20/18 14:37) RASH Review of Systems - Physician Review All systems were reviewed & negative as marked: Yes - Review of Systems Constitutional: Normal. absent: Fevers Eyes: Normal ENT: Normal Respiratory: Normal. absent: SOB, Cough Cardiovascular: Normal. absent: Chest Pain Gastrointestinal: Normal. absent: Abdominal Pain, Diarrhea, Nausea, Vomiting Genitourinary Female: Normal. absent: Dysuria, Frequency, Hematuria, Urine Output Changes Musculoskeletal: Normal. absent: Back Pain, Neck Pain Skin: Normal. absent: Rash Neurological: Normal. absent: Headache, Dizziness Endocrine: Normal Hemo/Lymphatic: Normal Psychiatric: Suicidal Ideation <Francis Brownpushpa Mckenzie - Last Filed: 09/09/18 01:50> Physical Exam Vital Signs Reviewed: Yes Vital Signs Temp Pulse Resp BP Pulse Ox 09/09/18 01:00 97.8 F 80 18 121/74 100 Temperature: Afebrile Blood Pressure: Normal Pulse: Regular Respiratory Rate: Normal Appearance: Positive for: Well-Appearing, Non-Toxic, Comfortable Pain Distress: None Mental Status: Positive for: Alert and Oriented X 3 - Systems Exam Head: Present: Atraumatic, Normocephalic Pupils: Present: PERRL Extroacular Muscles: Present: EOMI Conjunctiva: Present: Normal Mouth: Present: Moist Mucous Membranes Neck: Present: Normal Range of Motion Respiratory/Chest: Present: Clear to Auscultation, Good Air Exchange. No: Respiratory Distress, Accessory Muscle Use Cardiovascular: Present: Regular Rate and Rhythm, Normal S1, S2. No: Murmurs Abdomen: No: Tenderness, Distention, Peritoneal Signs Back: Present: Normal Inspection Upper Extremity: Present: Normal Inspection. No: Cyanosis, Edema Lower Extremity: Present: Normal Inspection. No: Edema Neurological: Present: GCS=15, CN II-XII Intact, Speech Normal Skin: Present: Warm, Dry, Normal Color. No: Rashes Psychiatric: Present: Alert, Oriented x 3, Normal Insight, Normal Concentration <Carolynn Brown - Last Filed: 09/09/18 01:50> Vital Signs Temp Pulse Resp BP Pulse Ox 09/09/18 01:00 97.8 F 80 18 121/74 100 <Baldo Tai - Last Filed: 09/09/18 05:03> Medical Decision Making ED Course and Treatment: 09/09/18 01:40 Impression: Differential Diagnosis included but are not limited to: Plan: -- EKG -- Labs, cardiac enzymes -- Urinalysis, Urine drug screen -- Reassess and disposition Prior Visits: Notes and results from previous visits were reviewed. Progress Notes: Patient is nontoxic well-appearing in no distress vital signs are stable. CBC WNL CMP K; 3.5 Tylenol WNL Salicylate WNL Alcohol level WNL Urine drug screen wnl UA; + blood cxr: wnl ekg normal sinus rhythm at 72 bpm normal axis normal intervals no ST elevations QTC 470 pt is medically cleared for PES evaluation Patient was seen and evaluated by PES screener: Frank. Case was discussed with Dr. Monte will hold the patient in the emergency room until the morning for a [id number] with a psychiatrist. Case signed out to pending PES evaluation in the morning - Lab Interpretations Lab Results: 09/09/18 00:30 09/09/18 00:30 Lab Results 09/09/18 00:30: Alcohol, Quantitative < 10 09/09/18 00:30: Salicylates < 1 L, Acetaminophen < 10.0 L 09/09/18 00:30: Sodium 140, Potassium 3.5 L, Chloride 111 H, Carbon Dioxide 21, Anion Gap 11, BUN 14, Creatinine 0.8, Est GFR ( Amer) > 60, Est GFR (Non- Af Amer) > 60, Random Glucose 102, Calcium 8.6, Total Bilirubin 0.1 L, AST 24, ALT 21, Alkaline Phosphatase 69, Total Protein 7.2, Albumin 4.1, Globulin 3.2, Albumin/Globulin Ratio 1.3 09/09/18 00:30: WBC 10.1, RBC 4.35, Hgb 11.8 L, Hct 36.3, MCV 83.4, MCH 27.1, MCHC 32.5, RDW 13.4, Plt Count 352, MPV 8.0, Gran % 64.8, Lymph % (Auto) 28.4, Morrill % (Auto) 5.8, Eos % (Auto) 0.6 L, Baso % (Auto) 0.4, Gran # 6.54 H, Lymph # (Auto) 2.9, Morrill # (Auto) 0.6, Eos # (Auto) 0.1, Baso # (Auto) 0.04 09/09/18 00:07: Urine Opiates Screen Negative, Urine Methadone Screen Negative, Ur Barbiturates Screen Negative, Ur Phencyclidine Scrn Negative, Ur Amphetamines Screen Negative, U Benzodiazepines Scrn Negative, U Oth Cocaine Metabols Negative, U Cannabinoids Screen Negative 09/09/18 00:07: Urine Color Yellow, Urine Appearance Clear, Urine pH 6.0, Ur Specific Neche 1.025, Urine Protein Negative, Urine Glucose (UA) Negative, Urine Ketones Negative, Urine Blood Moderate H, Urine Nitrate Negative, Urine Bilirubin Negative, Urine Urobilinogen 0.2, Ur Leukocyte Esterase Negative, Urine RBC 1 - 3, Urine WBC 0 - 2, Ur Epithelial Cells 1 - 3, Urine Bacteria Rare <Carolynn Brown - Last Filed: 09/09/18 01:50> ED Course and Treatment: 09/09/18 04:00 As per RN, pt refusing CXR. 09/09/18 07:00 Case endorsed to /pending evaluation by psychiatrist/final disposition - Lab Interpretations Lab Results: 09/09/18 00:30 09/09/18 00:30 Lab Results 09/09/18 00:30: Alcohol, Quantitative < 10 09/09/18 00:30: Salicylates < 1 L, Acetaminophen < 10.0 L 09/09/18 00:30: Sodium 140, Potassium 3.5 L, Chloride 111 H, Carbon Dioxide 21, Anion Gap 11, BUN 14, Creatinine 0.8, Est GFR ( Amer) > 60, Est GFR (Non- Af Amer) > 60, Random Glucose 102, Calcium 8.6, Total Bilirubin 0.1 L, AST 24, ALT 21, Alkaline Phosphatase 69, Total Protein 7.2, Albumin 4.1, Globulin 3.2, Albumin/Globulin Ratio 1.3 09/09/18 00:30: WBC 10.1, RBC 4.35, Hgb 11.8 L, Hct 36.3, MCV 83.4, MCH 27.1, MCHC 32.5, RDW 13.4, Plt Count 352, MPV 8.0, Gran % 64.8, Lymph % (Auto) 28.4, Morrill % (Auto) 5.8, Eos % (Auto) 0.6 L, Baso % (Auto) 0.4, Gran # 6.54 H, Lymph # (Auto) 2.9, Morrill # (Auto) 0.6, Eos # (Auto) 0.1, Baso # (Auto) 0.04 09/09/18 00:07: Urine Opiates Screen Negative, Urine Methadone Screen Negative, Ur Barbiturates Screen Negative, Ur Phencyclidine Scrn Negative, Ur Amphetamines Screen Negative, U Benzodiazepines Scrn Negative, U Oth Cocaine Metabols Negative, U Cannabinoids Screen Negative 09/09/18 00:07: Urine Color Yellow, Urine Appearance Clear, Urine pH 6.0, Ur Specific Neche 1.025, Urine Protein Negative, Urine Glucose (UA) Negative, Urine Ketones Negative, Urine Blood Moderate H, Urine Nitrate Negative, Urine Bilirubin Negative, Urine Urobilinogen 0.2, Ur Leukocyte Esterase Negative, Urine RBC 1 - 3, Urine WBC 0 - 2, Ur Epithelial Cells 1 - 3, Urine Bacteria Rare - RAD Interpretation Radiology Orders: 09/09/18 01:52 CHEST PORTABLE [RAD] Stat <Baldo Tai - Last Filed: 09/09/18 05:03> - Scribe Statement The provider has reviewed the documentation as recorded by the Stoneyibapolonia [place] Provider Stoneyibe Attestation: All medical record entries made by the Scribe were at my direction and personally dictated by me. I have reviewed the chart and agree that the record accurately reflects my personal performance of the history, physical exam, medical decision making, and the department course for this patient. I have also personally directed, reviewed, and agree with the discharge instructions and disposition. <Carolynn Brown - Last Filed: 09/09/18 01:50> - PA / COUNTY SHERIFF / Resident Statement / has reviewed & agrees with the documentation as recorded. / has examined the patient and agrees with the treatment plan. <Baldo Tai - Last Filed: 09/09/18 05:03> Disposition/Present on Arrival - Present on Arrival History of DVT/PE: No History of Uncontrolled Diabetes: No Urinary Catheter: No History of Decub. Ulcer: No History Surgical Site Infection Following: None <Carolynn Brown - Last Filed: 09/09/18 01:50> - Present on Arrival Any Indicators Present on Arrival: No - Disposition Have Diagnosis and Disposition been Completed?: No Disposition Time: 07:00 <Baldo Tai - Last Filed: 09/09/18 05:03> - Disposition Diagnosis: Schizoaffective disorder Condition: STABLE Referrals: Sheryl Trent DO [Primary Care Provider] - Follow up with primary Forms: [employer] (Citizen [place])
--- NOTE | 2018-09-09 07:05 | ED PDOC ---
Physical Exam Vital Signs Reviewed: Yes Vital Signs Temp Pulse Resp BP Pulse Ox 09/09/18 03:00 85 18 128/79 100 09/09/18 01:00 97.8 F 80 18 121/74 100 Temperature: Afebrile Blood Pressure: Normal Pulse: Regular Respiratory Rate: Normal Appearance: Positive for: Well-Appearing, Non-Toxic, Comfortable Pain Distress: None Mental Status: Positive for: Alert and Oriented X 3 Medical Decision Making ED Course and Treatment: 09/09/18 07:[address] Lucas pending face to face consult with psychiatry. Patient has been deemed medically cleared. 09/09/18 09:27 Patient refused Xanax, requesting Ativan. She is noted to become belligerent towards staff saying she would like her meds. [facility] screener evaluated patient and deems her ineligible for admission, desiring discharge. Patient refusing to be cooperative with plan for discharge, stating she will kill herself if she leaves. 09/09/18 12:30 Patient combative and rude towards nursing staff. Dr. Castro(psychiatrist) at the bedside updating patient on need for outpatient follow up in which patient refuses. [place] Police department called. Police refusing to take patient unless written consent to discharge as well as the consequences for treatment team involved. Consent signed. Patient stable for discharge. - Lab Interpretations Lab Results: 09/09/18 00:30 09/09/18 00:30 Lab Results 09/09/18 00:30: Alcohol, Quantitative < 10 09/09/18 00:30: Salicylates < 1 L, Acetaminophen < 10.0 L 09/09/18 00:30: Sodium 140, Potassium 3.5 L, Chloride 111 H, Carbon Dioxide 21, Anion Gap 11, BUN 14, Creatinine 0.8, Est GFR ( Amer) > 60, Est GFR (Non- Af Amer) > 60, Random Glucose 102, Calcium 8.6, Total Bilirubin 0.1 L, AST 24, ALT 21, Alkaline Phosphatase 69, Total Protein 7.2, Albumin 4.1, Globulin 3.2, Albumin/Globulin Ratio 1.3 09/09/18 00:30: WBC 10.1, RBC 4.35, Hgb 11.8 L, Hct 36.3, MCV 83.4, MCH 27.1, MCHC 32.5, RDW 13.4, Plt Count 352, MPV 8.0, Gran % 64.8, Lymph % (Auto) 28.4, Ellsworth % (Auto) 5.8, Eos % (Auto) 0.6 L, Baso % (Auto) 0.4, Gran # 6.54 H, Lymph # (Auto) 2.9, Ellsworth # (Auto) 0.6, Eos # (Auto) 0.1, Baso # (Auto) 0.04 09/09/18 00:07: Urine Opiates Screen Negative, Urine Methadone Screen Negative, Ur Barbiturates Screen Negative, Ur Phencyclidine Scrn Negative, Ur Amphetamines Screen Negative, U Benzodiazepines Scrn Negative, U Oth Cocaine Metabols Negative, U Cannabinoids Screen Negative 09/09/18 00:07: Urine Color Yellow, Urine Appearance Clear, Urine pH 6.0, Ur Specific Hartley 1.025, Urine Protein Negative, Urine Glucose (UA) Negative, Urine Ketones Negative, Urine Blood Moderate H, Urine Nitrate Negative, Urine Bilirubin Negative, Urine Urobilinogen 0.2, Ur Leukocyte Esterase Negative, Urine RBC 1 - 3, Urine WBC 0 - 2, Ur Epithelial Cells 1 - 3, Urine Bacteria Rare - RAD Interpretation Narrative RAD Interpretations (Text): 09/09/18 11:47 Chest X-ray reviewed, shows: IMPRESSION: No active pulmonary disease. Radiology Orders: 09/09/18 01:52 CHEST PORTABLE [RAD] Stat Rock Lather: Radiologist - Scribe Statement The provider has reviewed the documentation as recorded by the Mai Skinner Provider Scribe Attestation: All medical record entries made by the Mai were at my direction and personal ly dictated by me. I have reviewed the chart and agree that the record accurately reflects my personal performance of the history, physical exam, medical decision making, and the department course for this patient. I have also personally directed, reviewed, and agree with the discharge instructions and disposition. Disposition/Present on Arrival - Present on Arrival Any Indicators Present on Arrival: No History of DVT/PE: No History of Uncontrolled Diabetes: No Urinary Catheter: No History of Decub. Ulcer: No History Surgical Site Infection Following: None - Disposition Have Diagnosis and Disposition been Completed?: Yes Diagnosis: Schizoaffective disorder, Borderline personality disorder Disposition: HOME/ ROUTINE Disposition Time: 12:30 Patient Plan: Discharge Patient Problems: Current Active Problems Problem Status Onset Depression Chronic Schizoaffective disorder Chronic Condition: STABLE Discharge Instructions (ExitCare): Schizoaffective Disorder (DC) Print Language: UKRAINIAN Additional Instructions: All medical record entries made by the Scribe were at my direction and personally dictated by me. I have reviewed the chart and agree that the record accurately reflects my personal performance of the history, physical exam, medical decision making, and the department course for this patient. I have also personally directed, reviewed, and agree with the discharge instructions and disposition. Referrals: Sheryl Trent DO [Primary Care Provider] - Follow up with primary Forms: [employer] (Swedish)
[2018-09-09 08:26] VITALS: TEMP 98
[2018-09-09] MEDS ORDERED: Fluticasone Nasal 50 mcg/Spray NS STA (10:26)
[2018-09-09 11:10] VITALS: BP 118/69; PULSE 80; O2SAT 97
--- NOTE | 2018-09-09 11:22 | RAD ---
Date of service: 09/09/2018 HISTORY: pes eval COMPARISON: 08/02/2018 FINDINGS: LUNGS: The lungs are well inflated and clear. PLEURA: No pleural effusions or pneumothorax. CARDIOVASCULAR: The heart is normal in size. No aortic atherosclerotic calcification present. OSSEOUS STRUCTURES: Within normal limits for the patient's age. VISUALIZED UPPER ABDOMEN: Normal. OTHER FINDINGS: None. IMPRESSION: No active pulmonary disease.
--- NOTE | 2018-09-09 21:36 | CARD ---
APPROVED REPORT Date of service: 09/09/2018 EKG Measurement Heart [id number] <Conclusion> Normal sinus rhythm Normal ECG
--- NOTE | 2018-09-10 01:09 | CON ---
DATE: 09/09/2018 HISTORY OF PRESENT ILLNESS: In short, the patient is 38 years old female with multiple medical issues, hypertension, asthma, the patient also has severe borderline personality disorder, bipolar disorder vs schizoaffective disorder. The patient has chronic noncompliance with the followup appointments. The patient was brought by police from the "patient's house" because earlier the patient was making threats over the phone to [employer] police after she received a summons for an unstampted [employer] Ticket. pt was making statements like she would rather jump on the tracks and get runover by the train. [employer] response called back the number several times, but pt was not answering the phone, after that pt went back " home", police was contacted by [employer] services and pt was brought to ED for evaluation, this food writer emphasizing the fact that pt did not act on the statements she made over the phone and was calm back at her place. At the emergency room, the patient presented to be labile, emotional, who was construction driller recommended face-face evaluation. pt is very well known by this food writer from multiple psychiatric admissions as well as ED visits. pt has chronic noncompliance with follow up appointments, treatment plan, based on the history pt is refusing to take offered medications, refused to go to offered boarding homes or shelters, has her own and very unrealistic plans which complicates treatment, moreover if pt refused to take medications pt would antagonize other patients, making Racial remarks, distort therapeutic milieu of the unit, eventually becomes agitated, making threats and discharged administratively in the same condition as she came initially. All the above was the main reason why this food writer initiated screening by [facility]. [facility] did not accept patient for screening. This food writer had face to face evaluation together with [facility] . This food writer is familiar with this patient since 2016. The patient had been under this food writer's care for seven times, and this food writer feels confident to assess the patient based on the previous history as well as current presentation. The patient presented with good personal hygiene, has colored her hair. The patient had good ADLs. The patient presented to be manipulative. The patient said that she is homeless, but apparently, she is not. The patient reported that all of the clinics are refusing to accept her, which is true, because the patient has burned all the bridges in the clinics in this counts include 234 beds at the [facility]. The patient has tendency of manipulating and refusing to adjust medications, has tendency of disrespectful, as well as threatening behavior. The patient also has tendency of making racial remarks and racial slurs. The patient is very hard to deal with. Going back to the previous presentations, the patient would be not allowing this food writer to adjust her medications. The patient would be initiating fights with other patients in the unit. The patient would be agitated and living hospital administratively, and this food writer has impression that the patient will not benefit from this admission at all. The patient was complaining that she is homeless, but the patient lives in a basement apartment of her friend. The patient has income of 800 dollars from Social Security disability. This food writer suggested boarding home, but the patient refused to go to boarding home because "they will not give me money, they will take all of my money, I don't want to go there." The patient obviously has her preferences and not participating in offered plan. The patient has impression that she needs to stay in this hospital for food and longterm until she will be transferred to [facility], which this [facility] does not have affiliated to and this plan is unrealistic. This food writer educated pt about it. The patient was giving hard time to the nursing staff, was demanding to be on benzodiazepines and allergy medications, looking to feel comfortable, which leads this food writer to the impression that pt is not truly suicidal, The patient has tendency of verbalizing threats of harming herself, which she did last admission and admission before, but never acted on her threats in the past. The patient is paranoid, but it seems to be her baseline. PHYSICAL EXAMINATION: VITAL SIGNS: Stable. MEDICATIONS: Reviewed. Xanax 0.25 mg was given, but the patient refused. Cogentin was offered, but the patient refused. Flonase, Claritin, Ativan, Seroquel 100 mg once the patient refused, and this data supports this food writer's impression that the patient is not going to participate in any offered treatment plan. MENTAL STATUS EXAMINATION: The patient appears to be alert, oriented, fair eye contact. The patient has good personal hygiene, bright color of her hair. The patient appeared to be emotionally labile and manipulative, but not acutely psychotic. Speech was loud. Thought process seems to be circumstantial. Thought content, the patient was screaming that she is going to harm herself, but considering all of the above, risk is very low. Insight and judgment seemed to be limited. Impulses are fairly controlled, and the patient is at her baseline. IMPRESSION: As per history, severe borderline personality disorder, bipolar disorder, vs schizoaffective disorder. PLAN: The patient was provided with information about outpatient clinics. The patient has all the possible contact information of outpatient clinics as well as longterm and boarding homes in this area, it is up to patient to follow up with her preferable clinics, but the patient refused to participate. The patient does not want this food writer to adjust her medications. The patient was offered boarding home, but the patient refused. The patient wants to be admitted to acute psychiatric inpatient unit for food and longterm, which is not happening. The patient presented exactly the same way, not worse than before. This food writer will not accept the patient for admission because does not believe that admission will change the situation. The patient refused to leave the hospital, and as per emergency room physician, they needed to call police to escort the patient from the hospital. Taking care of this patient took more than 45 minutes of this food writer's time. Thank you very much for letting me participate in the care of your patient. Should you have any questions, give me a call back. Gloria Steele MD DINH
== END 2018-09-09 14:00 | disposition home or self-care (01) ==
LOC: ED 23:28
DX: F25.9 Schizoaffective disorder, unspecified (principal); I10 Essential (primary) hypertension; J45.909 Unspecified asthma, uncomplicated

== ENCOUNTER 2018-11-30 17:10 | Emergency (ER) | payer OTHER ==
[2018-11-30 17:11] VITALS: BMI 32.4
[2018-11-30 17:26] VITALS: BP 143/95; PULSE 96; RESP 18; O2SAT 97
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
[2018-11-30 18:12] LABS: BASO # 0.04 K/mm3 (0.0-2.0); BASO % 0.5 % (0.0-3.0); EOS % 0.4 % (1.5-5.0); HEMOGLOBIN 12.9 g/dL (12.0-16.0); LYMPH # 2.3 (1.2-3.4); LYMPH % 28.1 % (22.0-35.0); MEAN CELL VOLUME 81.7 fl (80.0-105.0); MEAN CORPUSCULAR HEMOGLOBIN 26.8 pg (25.0-35.0); MEAN CORPUSCULAR HGB CONC 32.7 g/dl (31.0-37.0); MEAN PLATELET VOLUME 8.2 fl (7.0-11.0); MONO # 0.6 (0.1-0.6); MONO % 6.7 % (1.0-6.0); RBC 4.82 10^6/uL (3.5-6.1); RED CELL DISTRIBUTION WIDTH 13.3 % (11.5-14.5); WHITE BLOOD COUNT 8.3 10^3/uL (4.5-11.0)
[2018-11-30 18:27] LABS: ALB/GLOB RATIO 1.3 (1.1-1.8); ALBUMIN 4.7 g/dL (3.0-4.8); ALT/SGPT 11 U/L (7-56); AST/SGOT 22 U/L (14-36); BLOOD UREA NITROGEN 13 mg/dL (7-21); CALCIUM 9.4 mg/dL (8.4-10.5); GFR NON-AFRICAN AMERICAN > 60
[2018-11-30 18:56] LABS: URINE BILIRUBIN NEGATIVE (NEGATIVE); URINE BLOOD NEGATIVE (NEGATIVE); URINE GLUCOSE (UA) NEGATIVE (NEGATIVE); URINE LEUKOCYTE ESTERASE SMALL Leu/uL (NEGATIVE); URINE PROTEIN NEGATIVE mg/dL (<30 mg/dL); URINE UROBILINOGEN 0.2 E.U./dL (<1 E.U./dL)
[2018-11-30 18:59] LABS: URINE APPEARANCE CLEAR (CLEAR); URINE COLOR YELLOW (YELLOW)
[2018-11-30 19:12] LABS: URINE EPITHELIAL CELLS 0 - 2 /hpf (0-5); URINE RBC 0 - 2 /hpf (0-2); URINE WBC 0 - 2 /hpf (0-6)
[2018-11-30 19:22] LABS: BARBITURATES, UR NEGATIVE (NEGATIVE); BENZODIAZEPINES, UR NEGATIVE (NEGATIVE)
[2018-11-30 19:23] LABS: OPIATES, UR NEGATIVE (NEGATIVE); PHENCYCLIDINE, UR NEGATIVE (NEGATIVE)
--- NOTE | 2018-11-30 20:55 | CARD ---
APPROVED REPORT Date of service: 11/30/2018 EKG Measurement Heart [id number] <Conclusion> Normal sinus rhythm Poor R wave progression V1-3 NDSTT abnormalities Abnormal ECG
== END 2018-11-30 20:40 | disposition home or self-care (01) ==
LOC: ED 17:10
DX: F25.9 Schizoaffective disorder, unspecified (principal); I10 Essential (primary) hypertension; Z59.0 Homelessness

== ENCOUNTER 2019-01-20 21:01 | Emergency (ER) | payer MEDICAID, OTHER ==
[2019-01-20 21:04] VITALS: BMI 29.2
[2019-01-20 21:42] LABS: BASO # 0.08 K/mm3 (0.0-2.0); BASO % 1.1 % (0.0-3.0); EOS # 0.1 (0.0-0.7); EOS % 1.1 % (1.5-5.0); HEMOGLOBIN 11.2 g/dL (12.0-16.0); LYMPH # 3.2 (1.2-3.4); LYMPH % 43.9 % (22.0-35.0); MEAN CELL VOLUME 81.2 fl (80.0-105.0); MEAN CORPUSCULAR HEMOGLOBIN 26.3 pg (25.0-35.0); MEAN CORPUSCULAR HGB CONC 32.4 g/dl (31.0-37.0); MEAN PLATELET VOLUME 7.9 fl (7.0-11.0); MONO # 0.6 (0.1-0.6); MONO % 7.8 % (1.0-6.0); RBC 4.26 10^6/uL (3.5-6.1); RED CELL DISTRIBUTION WIDTH 13.8 % (11.5-14.5); WHITE BLOOD COUNT 7.2 10^3/uL (4.5-11.0)
[2019-01-20 21:50] LABS: URINE BILIRUBIN NEGATIVE (NEGATIVE); URINE BLOOD TRACE-INTACT (NEGATIVE); URINE GLUCOSE (UA) NEGATIVE (NEGATIVE); URINE LEUKOCYTE ESTERASE NEGATIVE Leu/uL (NEGATIVE); URINE PROTEIN NEGATIVE mg/dL (<30 mg/dL); URINE UROBILINOGEN 0.2 E.U./dL (<1 E.U./dL)
[2019-01-20 21:52] LABS: ACETAMINOPHEN < 10.0 ug/ml (10.0-20.0); ALB/GLOB RATIO 1.4 (1.1-1.8); ALBUMIN 4.1 g/dL (3.0-4.8); ALT/SGPT 18 U/L (7-56); AST/SGOT 29 U/L (14-36); BLOOD UREA NITROGEN 12 mg/dL (7-21); CALCIUM 8.7 mg/dL (8.4-10.5); GFR NON-AFRICAN AMERICAN > 60; SALICYLATE < 1 mg/dL (2.0-20.0)
[2019-01-20 21:57] LABS: URINE APPEARANCE CLEAR (CLEAR); URINE COLOR YELLOW (YELLOW)
[2019-01-20 22:07] LABS: BARBITURATES, UR NEGATIVE (NEGATIVE); BENZODIAZEPINES, UR NEGATIVE (NEGATIVE); OPIATES, UR NEGATIVE (NEGATIVE); PHENCYCLIDINE, UR NEGATIVE (NEGATIVE)
[2019-01-20] MEDS ORDERED: Potassium Chloride 20 mEq ER Tab PO STA (22:09)
[2019-01-20 22:25] LABS: URINE RBC 0 - 2 /hpf (0-2); URINE WBC 0 - 2 /hpf (0-6)
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
[2019-01-21 00:06] VITALS: RESP 18
[2019-01-21 02:26] VITALS: O2SAT 98
[2019-01-21 02:29] VITALS: BP 105/58; PULSE 86; TEMP 98.1
--- NOTE | 2019-01-21 08:32 | RAD ---
HISTORY: psych COMPARISON: Chest x-ray performed 09/22/18 TECHNIQUE: Chest, one view. FINDINGS: LUNGS: No focal consolidation. Subtle rounded opacities in the right upper lobe measuring approximately 5 cm and in the left upper lobe approximately 2.1 cm. Please note that chest x-ray has limited sensitivity for the detection of pulmonary masses. PLEURA: No significant pleural effusion identified. No definite pneumothorax . CARDIOVASCULAR: The cardiomediastinal silhouette appears within normal limits of size. No significant atherosclerotic calcification present. OSSEOUS STRUCTURES: No acute osseous abnormality identified. VISUALIZED UPPER ABDOMEN: Unremarkable. OTHER FINDINGS: None. IMPRESSION: Subtle rounded opacities within the bilateral upper lobes measuring approximately 2.5 cm on the right and 2.1 cm on the left. Recommend further evaluation with chest CT. Study marked for PA review.
--- NOTE | 2019-01-21 15:08 | CARD ---
APPROVED REPORT Date of service: 01/20/2019 EKG Measurement Heart [id number] <Conclusion> Normal sinus rhythm Low voltage QRS Non Specific ST-T Changes.
== END 2019-01-21 02:29 | disposition home or self-care (01) ==
LOC: ED 21:01
DX: F25.9 Schizoaffective disorder, unspecified (principal); I10 Essential (primary) hypertension; F32.9 Major depressive disorder, single episode, unspecified
CPT/HCPCS: 71045; 80053; 80320; 80324; 80329; 80345; 80346; 80349; 80353; 80358; 80361; 81001; 81025; 83992; 85025; 90791; 93005; 96372; 99285; J2060; J3486